=== PATIENT | female | born 1935 | race Caucasian/White ===

== ENCOUNTER → 2016-08-18 | Outpatient (CLI) | payer MEDICARE, BC ==
[2016-08-18 10:18] LABS: HEMATOCRIT 39.7 % (36.0-47.0); HEMOGLOBIN 12.4 g/dL (12.0-15.5); HGB HCT DIFFERENCE -2.5; MEAN CORPUSCULAR HEMOGLOBIN 31.5 pg (27.0-33.4); MEAN CORPUSCULAR HGB CONC 31.3 g/dL (32.0-36.0); MEAN CORPUSCULAR VOLUME 101 fl (80-97); RED BLOOD COUNT 3.94 10^6/uL (3.72-5.28); RED CELL DISTRIBUTION WIDTH 15.1 % (11.5-14.0); WHITE BLOOD COUNT 7.6 10^3/uL (4.0-10.5)
[2016-08-18 10:21] LABS: APPEARANCE,URINE CLEAR; BILIRUBIN,URINE NEGATIVE (NEGATIVE); GLUCOSE, URINE NEGATIVE (NEGATIVE); KETONES,URINE NEGATIVE (NEGATIVE); LEUKOCYTE ESTERASE,URINE SMALL (NEGATIVE); NITRITE,URINE NEGATIVE (NEGATIVE); PROTEIN,URINE NEGATIVE (NEGATIVE); URINE SPECIFIC GRAVITY 1.006; UROBILINOGEN,URINE NEGATIVE mg/dL (<2.0)
[2016-08-18 10:39] LABS: ANION GAP 14 (5-19); BLOOD UREA NITROGEN 25 mg/dL (7-20); CALCIUM 9.5 mg/dL (8.4-10.2); CARBON DIOXIDE 29 mmol/L (22-30); CHLORIDE 100 mmol/L (98-107); CREATININE RESULT 1.08 mg/dL (0.52-1.25); GLUCOSE 102 mg/dL (75-110); POTASSIUM 4.7 mmol/L (3.6-5.0); SODIUM 142.8 mmol/L (137-145)
== END ==
LOC: OD 09:09
PROVIDERS: ATTEND Internal Medicine Nephrology
DX: E11.22 Type 2 diabetes mellitus with diabetic chronic kidney disease (principal); I12.9 Hypertensive chronic kidney disease with stage 1 through stage 4 chronic kidney disease, or unspecified chronic kidney disease; N18.3 Chronic kidney disease, stage 3 (moderate); D64.9 Anemia, unspecified
CPT/HCPCS: 36415; 80048; 81001; 85027

== ENCOUNTER → 2017-04-03 | Outpatient (CLI) | payer MEDICARE, BC ==
[2017-04-03 10:04] LABS: HEMATOCRIT 36.6 % (36.0-47.0); HEMOGLOBIN 11.8 g/dL (12.0-15.5); HGB HCT DIFFERENCE -1.2; MEAN CORPUSCULAR HEMOGLOBIN 33.9 pg (27.0-33.4); MEAN CORPUSCULAR HGB CONC 32.1 g/dL (32.0-36.0); MEAN CORPUSCULAR VOLUME 106 fl (80-97); RED BLOOD COUNT 3.47 10^6/uL (3.72-5.28); RED CELL DISTRIBUTION WIDTH 15.1 % (11.5-14.0); WHITE BLOOD COUNT 6.4 10^3/uL (4.0-10.5)
[2017-04-03 10:09] LABS: APPEARANCE,URINE CLOUDY; BILIRUBIN,URINE NEGATIVE (NEGATIVE); GLUCOSE, URINE NEGATIVE (NEGATIVE); KETONES,URINE NEGATIVE (NEGATIVE); LEUKOCYTE ESTERASE,URINE LARGE (NEGATIVE); NITRITE,URINE NEGATIVE (NEGATIVE); PROTEIN,URINE NEGATIVE (NEGATIVE); URINE SPECIFIC GRAVITY 1.011; UROBILINOGEN,URINE NEGATIVE mg/dL (<2.0)
[2017-04-03 10:42] LABS: ANION GAP 13 (5-19); BLOOD UREA NITROGEN 45 mg/dL (7-20); CARBON DIOXIDE 27 mmol/L (22-30); CHLORIDE 103 mmol/L (98-107); CREATININE RESULT 1.26 mg/dL (0.52-1.25); GLUCOSE 100 mg/dL (75-110); SODIUM 142.9 mmol/L (137-145)
== END ==
LOC: OD 09:00
PROVIDERS: ATTEND Internal Medicine Nephrology
DX: D64.9 Anemia, unspecified (principal); I13.0 Hypertensive heart and chronic kidney disease with heart failure and stage 1 through stage 4 chronic kidney disease, or unspecified chronic kidney disease; E11.22 Type 2 diabetes mellitus with diabetic chronic kidney disease; N18.3 Chronic kidney disease, stage 3 (moderate); I50.9 Heart failure, unspecified
CPT/HCPCS: 36415; 80048; 81001; 85027

== ENCOUNTER 2017-06-17 19:39 | Inpatient (IN) | payer MEDICARE, BC ==
[2017-06-17] MEDS ORDERED: IPRATROPIUM/ALBUTEROL 0.5-2.5 MG/3 ML AMPUL NEB ONE (20:44)
[2017-06-17 21:29] LABS: ABSOLUTE BASOPHILS # (AUTO) 0.1 10^3/uL (0.0-0.2); ABSOLUTE EOSINOPHILS # (AUTO) 0.2 10^3/uL (0.0-0.6); ABSOLUTE LYMPHOCYTES (AUTO) 0.6 10^3/uL (0.5-4.7); ABSOLUTE MONOCYTES (AUTO) 0.6 10^3/uL (0.1-1.4); ABSOLUTE NEUT (AUTO) 7.3 10^3/uL (1.7-8.2); BASOPHILS % (AUTO) 1.2 % (0-2); EOSINOPHILS % (AUTO) 2.2 % (0-6); HEMATOCRIT 42.7 % (36.0-47.0); HEMOGLOBIN 14.1 g/dL (12.0-15.5); HGB HCT DIFFERENCE -0.4; LYMPHOCYTES % (AUTO) 6.4 % (13-45); MEAN CORPUSCULAR HEMOGLOBIN 34.3 pg (27.0-33.4); MEAN CORPUSCULAR HGB CONC 33.1 g/dL (32.0-36.0); MEAN CORPUSCULAR VOLUME 104 fl (80-97); MONOCYTES % (AUTO) 6.9 % (3-13); RED BLOOD COUNT 4.12 10^6/uL (3.72-5.28); RED CELL DISTRIBUTION WIDTH 15.6 % (11.5-14.0); SEGMENTED NEUTROPHILS % (AUTO) 83.3 % (42-78); WHITE BLOOD COUNT 8.8 10^3/uL (4.0-10.5)
--- NOTE | 2017-06-17 21:48 | RADIOLOGY REPORT (SQ) ---
EXAM DESCRIPTION: CHEST PA/LAT COMPLETED DATE/TIME: 06/17/2017 9:35 pm REASON FOR STUDY: sob COMPARISON: 11/14/2015 EXAM PARAMETERS: NUMBER OF VIEWS: two views TECHNIQUE: Digital Frontal and Lateral radiographic views of the chest acquired. RADIATION DOSE: NA LIMITATIONS: none FINDINGS: LUNGS AND PLEURA: No opacities, masses or pneumothorax. No pleural effusion. MEDIASTINUM AND HILAR STRUCTURES: No masses or contour abnormalities. HEART AND VASCULAR STRUCTURES: Cardiomegaly with mild central vascular prominence and indistinctness. BONES: No acute findings. HARDWARE: None in the chest. OTHER: No other significant finding. IMPRESSION: Cardiomegaly with mild central vascular prominence and indistinctness suggests early CHF exacerbation. TECHNICAL DOCUMENTATION: JOB ID: [id number] [employer]- All Rights Reserved
[2017-06-17 22:08] LABS: TROPONIN I 0.057 ng/mL
[2017-06-17] MEDS ORDERED: FUROSEMIDE INJ/PF 40 MG/4 ML SDV IV ONE (22:35)
--- NOTE | 2017-06-17 22:37 | ER Document Report ---
ED General - General Mode of Arrival: Ambulatory Information source: Patient TRAVEL OUTSIDE OF THE [place] IN LAST 30 DAYS: No - HPI Onset: Last week Exacerbated by: Supine <REINA JAMES - Last Filed: 06/17/17 23:14> <DREWMAGDIELANGELA - Last Filed: 06/18/17 07:36> - General Chief Complaint: Shortness Of Breath Stated Complaint: SHORTNESS OF BREATH Time Seen by Provider: 06/17/17 20:31 Notes: Patient is an 82 year old female with a history of renal and heart failure, asthma, and Afib presents to the emergency department accompanied by daughter in law complaining of shortness of breath onset a week ago. Daughter in Law states that after the patient took a shower this evening she was was very fatigued, had shortness of breath and her legs appeared swollen. Daughter in law states she checked the patients blood pressure and it appeared to be 110/85 and noticed that her heart was irregular. Patient states that her shortness of breath is exacerbated when she lays down. Patients associated symptoms include nausea, weight gain, and decreased urine output. Patient denies any chest pain. Patient currently takes Lasix, 40 mg once a day and Metolazone 2.5 mg every Monday, Monday, and Monday. Patient has previously had cardiac stents placed. (REINA JAMES) - Related Data Allergies/Adverse Reactions: pentazocine lactate [From Talwin] Allergy (Severe, Verified 11/10/15 08:07) Anaphylaxis codeine [Codeine] Allergy (Verified 11/10/15 08:07) Confusion meperidine HCl [From Demerol] Allergy (Verified 11/10/15 08:07) Disorientation morphine [Morphine] Allergy (Verified 11/10/15 08:07) Confusion Past Medical History - General Information source: Patient, Relative - Social History Smoking Status: Never Smoker Frequency of alcohol use: None Drug Abuse: None Family History: Reviewed & Not Pertinent Patient has suicidal ideation: No Patient has homicidal ideation: No - Past Medical History Cardiac Medical History: Reports: Hx Atrial Fibrillation, Hx Congestive Heart Failure - Immunizations Hx Pneumococcal Vaccination: 05/07/15 <REINA JAMES - Last Filed: 06/17/17 23:14> Review of Systems - Review of Systems Constitutional: See HPI, Other - Fatigue, Weight gain EENT: No symptoms reported Cardiovascular: No symptoms reported. denies: Chest pain Respiratory: See HPI, Short of breath Gastrointestinal: See HPI, Nausea Genitourinary: See HPI, Retention Female Genitourinary: No symptoms reported Musculoskeletal: See HPI, Leg swelling - bilaterally Skin: No symptoms reported Hematologic/Lymphatic: No symptoms reported Neurological/Psychological: No symptoms reported -: Yes All other systems reviewed and negative <JACOBREINA LOERA - Last Filed: 06/17/17 23:14> Physical Exam <JACOB,TAMLASHON - Last Filed: 06/17/17 23:14> <DREWMAGDIELANGELA - Last Filed: 06/18/17 07:36> - Vital signs Vitals: Temp Pulse Resp BP Pulse Ox 97.5 F 93 16 135/94 H 95 06/17/17 19:46 06/17/17 19:46 06/17/17 19:46 06/17/17 19:46 06/17/17 19:46 - Notes Notes: GENERAL: Alert, interacts well. No acute distress. HEAD: Normocephalic, atraumatic. EYES: Pupils equal, round, and reactive to light. Extraocular movements intact. ENT: Oral mucosa moist, tongue midline. NECK: Full range of motion. Supple. Trachea midline. LUNGS: Inspiratory rales in the upper lobe zone. Expiratory squeak. No wheezes or rhonchi. No respiratory distress. HEART: Irregular rate with ectopic beat. No murmurs, gallops, or rubs. ABDOMEN: Soft, non-tender. Non-distended. Bowel sounds present in all 4 quadrants. EXTREMITIES: Moves all 4 extremities spontaneously. 2+ pitting edema bilaterally , radial and dorsalis pedis pulses 2/4 bilaterally. No cyanosis. NEUROLOGICAL: Alert and oriented x3. Normal speech. [cranial nerves II through XII grossly intact]. Biceps and patellar DTRs 2+ bilaterally. PSYCH: Normal affect, normal mood. SKIN: Warm, dry, normal turgor. No rashes or lesions noted. (JACOB,TAMLASHON) Course - Laboratory Result Diagrams: 06/17/17 21:20 06/17/17 21:20 <JACOBSALASLASHON - Last Filed: 06/17/17 23:14> - Laboratory Result Diagrams: 06/18/17 06:40 06/18/17 06:40 <ANGELA KRUSE - Last Filed: 06/18/17 07:36> - Re-evaluation Re-evalutation: 06/18/17 00:57 CBC unremarkable, CMP shows acute on chronic renal failure with a BUN of 53 and creatinine 1.84, troponin is indeterminate 0.057, proBNP markedly elevated 28, 900, this further supports the congestive heart failure seen on chest x-ray and the rales heard on physical examination as well as the pitting edema. To treat this patient was given Lasix and a Wise catheter was placed. Patient does appear moderately short of breath but no need for supplemental oxygen at this time. I did discuss the case with Dr. Garcia the hospitalist on-call who agrees to admit the patient to his service in admission status on the telemetry care floor. 06/18/17 00:59 Wall Taper will continue to follow hypertension. (ANGELA RKUSE) - Vital Signs Vital signs: Temp Pulse Resp BP Pulse Ox 97.5 F 93 25 H 122/84 94 06/17/17 19:46 06/17/17 19:46 06/18/17 05:02 06/18/17 05:02 06/18/17 05:02 - Laboratory Laboratory results interpreted by me: 06/17/17 06/17/17 06/17/17 21:20 21:20 23:00 MCV 104 H MCH 34.3 H RDW 15.6 H Seg Neutrophils % 83.3 H Lymphocytes % 6.4 L BUN Creatinine Est GFR ( Amer) Est GFR (Non-Af Amer) Glucose Direct Bilirubin NT-Pro-B Natriuret Pep 66574 H Urine Protein 30 H Urine Blood SMALL H Ur Leukocyte Esterase MODERATE H 06/17/17 23:35 MCV MCH RDW Seg Neutrophils % Lymphocytes % BUN 53 H Creatinine 1.84 H Est GFR ( Amer) 32 L Est GFR (Non-Af Amer) 26 L Glucose 134 H Direct Bilirubin 0.7 H NT-Pro-B Natriuret Pep Urine Protein Urine Blood Ur Leukocyte Esterase - EKG Interpretation by Me Additional EKG results interpreted by me: 06/18/17 00:58 EKG shows sinus rhythm rate 94, left bundle branch block, 2 PVCs which are multifocal, negative sgarbossa criteria, no significant change from prior EKG on 11/09/2015 per my interpretation. (ANGELA KRUSE) Discharge <REINA JAMES - Last Filed: 06/17/17 23:14> - [facility]charge [facility] Unit Admitted: Telemetry <ANGELA KRUSE - Last Filed: 06/18/17 07:36> - Discharge Clinical Impression: Acute on chronic congestive heart failure Qualifiers: Congestive heart failure type: unspecified congestive heart failure type Qualified Code(s): I50.9 - Heart failure, unspecified Hypertension Qualifiers: Hypertension type: renovascular hypertension Qualified Code(s): I15.0 - Renovascular hypertension Acute on chronic renal failure Qualifiers: Acute renal failure type: unspecified Chronic kidney disease stage: stage 3 ( moderate) Qualified Code(s): N17.9 - Acute kidney failure, unspecified Condition: Fair Disposition: ADMITTED INPATIENT Scribe Attestation: 06/18/17 07:35 I personally performed the services described in the documentation, reviewed and edited the documentation which was dictated to the scribe in my presence, and it accurately records my words and actions. (ANGELA KRUSE) Scribe Documentation - Scribe Written by Melo:: Melo Schmitt, 06/17/2017 23:22 acting as scribe for :: Maite <REINA JAMES - Last Filed: 06/17/17 23:14>
[2017-06-17 23:29] LABS: APPEARANCE,URINE SLIGHTLY-CLOUDY; BILIRUBIN,URINE NEGATIVE (NEGATIVE); GLUCOSE, URINE NEGATIVE (NEGATIVE); KETONES,URINE NEGATIVE (NEGATIVE); LEUKOCYTE ESTERASE,URINE MODERATE (NEGATIVE); NITRITE,URINE NEGATIVE (NEGATIVE); PROTEIN,URINE 30 mg/dL (NEGATIVE); URINE SPECIFIC GRAVITY 1.009; UROBILINOGEN,URINE NEGATIVE mg/dL (<2.0)
[2017-06-18 00:01] LABS: ALANINE AMINOTRANSFERASE 28 U/L (9-52); ALKALINE PHOSPHATASE 92 U/L (38-126); ANION GAP 16 (5-19); ASPARTATE AMINO TRANSFERASE 28 U/L (14-36); BILIRUBIN,DIRECT 0.7 mg/dL (0.0-0.4); BILIRUBIN,TOTAL 0.9 mg/dL (0.2-1.3); BLOOD UREA NITROGEN 53 mg/dL (7-20); CARBON DIOXIDE 24 mmol/L (22-30); CHLORIDE 102 mmol/L (98-107); CREATININE RESULT 1.84 mg/dL (0.52-1.25); GLUCOSE 134 mg/dL (75-110); MAGNESIUM 1.8 mg/dL (1.6-2.3); POTASSIUM 4.2 mmol/L (3.6-5.0); SODIUM 141.9 mmol/L (137-145); TOTAL PROTEIN 7.8 g/dL (6.3-8.2)
[2017-06-18] MEDS ORDERED: DEXTROSE 40% GEL 15 GM TUBE PO PRN ×2 (00:56)
[2017-06-18] MEDS ORDERED: INSULIN LISPRO 100 UNIT/ML 3 ML VIAL SUBCUT PRN (00:56)
[2017-06-18] MEDS ORDERED: ENALAPRILAT DIHYDRATE INJ/PF 1.25 MG/1 ML SDV IV PRN (00:56)
[2017-06-18] MEDS ORDERED: MAGNESIUM HYDROXIDE SUSP 30 ML UDCUP PO PRN (00:56)
[2017-06-18] MEDS ORDERED: DEXTROSE 50%-WATER 25 GM/50 ML DISP.SYRIN IV PRN ×2 (00:56)
[2017-06-18] MEDS ORDERED: GLUCAGON,HUMAN RECOMB 1 MG INJ IM PRN (00:56)
[2017-06-18] MEDS ORDERED: NITROGLYCERIN 5 MG (0.2 MG/HR) PATCH.TD24 TD ONE (01:30)
[2017-06-18 01:56] LABS: CREATINE KINASE MB 2.27 ng/mL (<4.55)
[2017-06-18] MEDS ORDERED: POTASSIUM CHLORIDE 10 MEQ TABLET.SA PO ONE (02:00)
[2017-06-18 02:12] LABS: TROPONIN I 0.067 ng/mL
[2017-06-18] MEDS: HEPARIN SOD (PORCINE) 5,000 UNIT/ML 1 ML SYRINGE SUBCUT SCH ×3 (05:20→22:11)
--- NOTE | 2017-06-18 06:22 | PDOC H&P ---
History of Present Illness Admission Date/PCP: 06/18/17 01:14 BENJAMIN BERTRAND MD Patient complains of: Shortness of breath History of Present Illness: RANDELL STERLING is a 82 year old female with a past medical history of morbid obesity, congestive heart failure unknown ejection fraction, stage IV chronic kidney disease, diabetes, old left bundle branch block and hypothyroidism. Patient presents after 24 hours of orthopnea, shortness of breath and leg edema. In the emergency room she is found to have an elevated BNP of 28,000, creatinine at baseline 1.8, pulmonary vascular congestion and +1 edema. She receives IV Lasix and referred to the hospitalist for admission. Patient denies chest pain nausea vomiting or recent change of medications. She does complain of constipation. Past Medical History Cardiac Medical History: Reports: Atrial Fibrillation, Congestive Heart Failure Pulmonary Medical History: Reports: Sleep Apnea Endocrine Medical History: Reports: Diabetes Mellitus Type 2, Obesity Renal/ Medical History: Reports: Chronic Kidney Disease Social History Information Source: Patient Smoking Status: Never Smoker Frequency of Alcohol Use: None Hx Recreational Drug Use: No Hx Prescription Drug Abuse: No - Advance Directive Resuscitation Status: Full Code Family History Family History: None Parental Family History Reviewed: Yes Children Family History Reviewed: Yes Sibling(s) Family History Reviewed.: Yes Medication/Allergy Home Medications: Allopurinol [Zyloprim 100 mg Tablet] 100 mg PO DAILY 11/09/15 Carvedilol [Coreg] 1 tab PO Q12 11/09/15 Gabapentin 300 mg PO QHS 11/09/15 Isosorbide Mononitrate [Imdur 30 mg Tablet.er] 30 mg PO DAILY 11/09/15 Levothyroxine Sodium 125 mcg PO DAILY 11/09/15 Montelukast Sodium [Singulair] 10 mg PO DAILY 11/09/15 Ciprofloxacin HCl [Cipro 500 mg Tablet] 250 mg PO Q12 #6 tablet 11/17/15 Furosemide [Lasix 40 mg Tablet] 40 mg PO QAM #30 tablet 11/17/15 Glipizide [Glucotrol Xl 5 mg Tab.er] 5 mg PO QAM #30 tab.er.24 11/17/15 Allergies/Adverse Reactions: pentazocine lactate [From Talwin] Allergy (Severe, Verified 11/10/15 08:07) Anaphylaxis codeine [Codeine] Allergy (Verified 11/10/15 08:07) Confusion meperidine HCl [From Demerol] Allergy (Verified 11/10/15 08:07) Disorientation morphine [Morphine] Allergy (Verified 11/10/15 08:07) Confusion Review of Systems Constitutional: PRESENT: as per HPI, fatigue, weight gain Eyes: ABSENT: visual disturbances Ears: ABSENT: hearing changes Cardiovascular: PRESENT: dyspnea on exertion, edema, orthropnea, palpitations. ABSENT: chest pain Respiratory: PRESENT: as per HPI, dyspnea. ABSENT: cough, hemoptysis Gastrointestinal: PRESENT: bloating, constipation. ABSENT: abdominal pain, coffee ground emesis Genitourinary: ABSENT: dysuria, hematuria Musculoskeletal: ABSENT: joint swelling Integumentary: ABSENT: rash, wounds Neurological: ABSENT: abnormal gait, abnormal speech, confusion, dizziness, focal weakness, syncope Psychiatric: ABSENT: anxiety, depression, homidical ideation, suicidal ideation Endocrine: ABSENT: cold intolerance, heat intolerance, polydipsia, polyuria Hematologic/Lymphatic: ABSENT: easy bleeding, easy bruising Physical Exam Vital Signs: Temp Pulse Resp BP Pulse Ox 97.5 F 93 25 H 122/84 94 06/17/17 19:46 06/17/17 19:46 06/18/17 05:02 06/18/17 05:02 06/18/17 05:02 General appearance: PRESENT: cooperative, mild distress, morbidly obese Head exam: PRESENT: atraumatic, normocephalic Eye exam: PRESENT: conjunctiva pink, EOMI, PERRLA. ABSENT: scleral icterus Ear exam: PRESENT: normal external ear exam Mouth exam: PRESENT: dry mucosa Neck exam: PRESENT: JVD. ABSENT: carotid bruit, lymphadenopathy, thyromegaly Respiratory exam: PRESENT: crackles, symmetrical, tachypnea. ABSENT: rales, rhonchi, wheezes Cardiovascular exam: PRESENT: RRR. ABSENT: diastolic murmur, rubs, systolic murmur Pulses: PRESENT: normal dorsalis pedis pul, +1 pedal pulses bilateral Vascular exam: PRESENT: normal capillary refill GI/Abdominal exam: PRESENT: normal bowel sounds, soft. ABSENT: distended, guarding, mass, organolmegaly, rebound, tenderness Rectal exam: PRESENT: deferred Extremities exam: PRESENT: full ROM, +1 edema. ABSENT: calf tenderness, clubbing, pedal edema Neurological exam: PRESENT: alert, awake, oriented to person, oriented to place , oriented to time, oriented to situation, CN II-XII grossly intact. ABSENT: motor sensory deficit Psychiatric exam: PRESENT: appropriate affect, normal mood. ABSENT: homicidal ideation, suicidal ideation Skin exam: PRESENT: dry, intact, warm. ABSENT: cyanosis, rash Results Laboratory Results: 06/18/17 01:22 TSH 1.46 06/18/17 06/18/17 01:22 01:22 Creatine Kinase 85 CK-MB (CK-2) 2.27 Troponin I 0.067 Impressions: Chest X-Ray 06/17/17 20:43 IMPRESSION: Cardiomegaly with mild central vascular prominence and indistinctness suggests early CHF exacerbation. Assessment & Plan - Diagnosis (1) Acute on chronic congestive heart failure Qualifiers: Congestive heart failure type: unspecified congestive heart failure type Qualified Code(s): I50.9 - Heart failure, unspecified Is this a current diagnosis for this admission?: Yes Plan: Mild decompensated congestive heart failure secondary to volume overload possibly dietary indiscretion. Loop diuretic 1 transdermal nitro and reevaluate clinically and biochemically. Serial cardiac enzymes and chemistry (2) Acute on chronic renal failure Qualifiers: Acute renal failure type: unspecified Chronic kidney disease stage: stage 3 (moderate) Qualified Code(s): N17.9 - Acute kidney failure, unspecified; N18.3 - Chronic kidney disease, stage 3 (moderate); N18.3 - Chronic kidney disease, stage 3 (moderate) Is this a current diagnosis for this admission?: Yes Plan: Limit aggressive diuresis given stage IV chronic kidney disease consider BiPAP (3) Hypertension Qualifiers: Hypertension type: renovascular hypertension Qualified Code(s): I15.0 - Renovascular hypertension Is this a current diagnosis for this admission?: Yes Plan: Optimize nitrate and STACY inhibitor - Time Time Spent: 30 to 50 Minutes
[2017-06-18 06:49] LABS: ABSOLUTE BASOPHILS # (AUTO) 0.1 10^3/uL (0.0-0.2); ABSOLUTE EOSINOPHILS # (AUTO) 0.1 10^3/uL (0.0-0.6); ABSOLUTE LYMPHOCYTES (AUTO) 1.1 10^3/uL (0.5-4.7); ABSOLUTE MONOCYTES (AUTO) 0.7 10^3/uL (0.1-1.4); ABSOLUTE NEUT (AUTO) 6.1 10^3/uL (1.7-8.2); BASOPHILS % (AUTO) 1.4 % (0-2); EOSINOPHILS % (AUTO) 1.6 % (0-6); HEMATOCRIT 42.6 % (36.0-47.0); HGB HCT DIFFERENCE -0.6; LYMPHOCYTES % (AUTO) 13.7 % (13-45); MEAN CORPUSCULAR HEMOGLOBIN 33.7 pg (27.0-33.4); MEAN CORPUSCULAR HGB CONC 32.9 g/dL (32.0-36.0); MEAN CORPUSCULAR VOLUME 103 fl (80-97); MONOCYTES % (AUTO) 8.3 % (3-13); RED BLOOD COUNT 4.16 10^6/uL (3.72-5.28); RED CELL DISTRIBUTION WIDTH 15.5 % (11.5-14.0); WHITE BLOOD COUNT 8.1 10^3/uL (4.0-10.5)
[2017-06-18 07:28] LABS: ANION GAP 16 (5-19); BLOOD UREA NITROGEN 53 mg/dL (7-20); CALCIUM 9.9 mg/dL (8.4-10.2); CARBON DIOXIDE 22 mmol/L (22-30); CHLORIDE 105 mmol/L (98-107); CREATINE KINASE 73 U/L (30-135); CREATININE RESULT 1.82 mg/dL (0.52-1.25); GLUCOSE 110 mg/dL (75-110); POTASSIUM 4.7 mmol/L (3.6-5.0); SODIUM 143.1 mmol/L (137-145)
[2017-06-18 07:36] LABS: CREATINE KINASE MB 1.97 ng/mL (<4.55); TROPONIN I 0.073 ng/mL
[2017-06-18] MEDS ORDERED: ASPIRIN 325 MG TABLET PO ONE ×2 (07:36→09:00)
[2017-06-18] MEDS ORDERED: LEVOTHYROXINE SODIUM 0.1 MG TABLET PO SCH (08:00)
[2017-06-18] MEDS ORDERED: GLIPIZIDE XL 5 MG TAB.ER.24 PO SCH (08:00)
[2017-06-18] MEDS ORDERED: LEVOTHYROXINE SODIUM 0.025 MG TABLET PO SCH (08:00)
[2017-06-18] MEDS ORDERED: ONDANSETRON HCL INJ/PF 4 MG/2 ML SDV ONE (09:41)
[2017-06-18] MEDS: LEVOTHYROXINE SODIUM 0.1 MG TABLET PO SCH (09:52)
[2017-06-18] MEDS: POTASSIUM CHLORIDE 10 MEQ TABLET.SA PO SCH ×2 (09:52→22:11)
[2017-06-18] MEDS: DOCUSATE SODIUM 100 MG CAPSULE PO SCH (09:52)
[2017-06-18] MEDS: MONTELUKAST SODIUM 10 MG TABLET PO SCH (09:53)
[2017-06-18] MEDS: LEVOTHYROXINE SODIUM 0.025 MG TABLET PO SCH (09:53)
[2017-06-18] MEDS ORDERED: (PENDING PHARMACY ID) (Levothyroxine Sodium [Levothyroxine Sodium] 125 MCG) PO SCH (10:00)
[2017-06-18] MEDS ORDERED: NITROGLYCERIN 5 MG (0.2 MG/HR) PATCH.TD24 TD SCH (10:00)
[2017-06-18] MEDS ORDERED: ISOSORBIDE MONONITRATE 30 MG TAB.ER.24H PO SCH (10:00)
[2017-06-18] MEDS ORDERED: FUROSEMIDE INJ/PF 40 MG/4 ML SDV IV SCH ×2 (10:00)
[2017-06-18] MEDS ORDERED: ONDANSETRON HCL INJ/PF 4 MG/2 ML SDV IV SCH (10:30)
[2017-06-18] MEDS: CARVEDILOL 6.25 MG TABLET PO SCH ×2 (10:35→22:11)
[2017-06-18 13:10] LABS: CREATINE KINASE MB 2.2 ng/mL (<4.55); TROPONIN I 0.074 ng/mL
[2017-06-18] MEDS: LEVALBUTEROL HCL NEB 1.25 MG/3 ML AMPUL NEB PRN (14:22)
[2017-06-18] MEDS: ONDANSETRON HCL INJ/PF 4 MG/2 ML SDV IV PRN (14:38)
--- NOTE | 2017-06-18 15:23 | PDOC PROGRESS REPORT ---
Subjective Progress Note for:: 06/18/17 Subjective:: f/u acute on chronic heart failure per H&P - RANDELL STERLING is a 82 year old female with a past medical history of morbid obesity, congestive heart failure unknown ejection fraction, stage IV chronic kidney disease, diabetes, old left bundle branch block and hypothyroidism. Patient presents after 24 hours of orthopnea, shortness of breath and leg edema. In the emergency room she is found to have an elevated BNP of 28,000, creatinine at baseline 1.8, pulmonary vascular congestion and +1 edema. She receives IV Lasix and referred to the hospitalist for admission. Patient denies chest pain nausea vomiting or recent change of medications. She does complain of constipation. she reports to me increase swelling of her legs, weight gain but not sure how much all in spite of increasing her dose of diuretics; she notes a drop off in the volume of her urine too but denies dysuric symptoms. she is followed by dr rodriguez as well and reports a similar presentation in the last year requiring a prolonged hospitalization and dr rodriguez's "magic" to get her better. she denies chest pain, arm pain, jaw pain, palpitations, reports nausea but no v /d, and no anorexia, rash, confusion, N/T. no echo report on review of the EMR ROS: all systems reviewed, see above, remaining systems negative. Physical Exam Vital Signs: Temp Pulse Resp BP Pulse Ox 97.3 F 77 16 116/83 97 06/18/17 12:00 06/18/17 14:22 06/18/17 14:22 06/18/17 12:00 06/18/17 14:22 Intake & Output 06/17/17 06/18/17 06/19/17 06:59 06:59 06:59 Output Total 900 Balance -900 Weight 89.2 kg General appearance: PRESENT: obese, well-developed Head exam: PRESENT: atraumatic Eye exam: PRESENT: EOMI. ABSENT: conjunctival injection, scleral icterus Mouth exam: PRESENT: dry mucosa, neck supple Neck exam: PRESENT: full ROM. ABSENT: JVD, lymphadenopathy Respiratory exam: PRESENT: crackles - bases, unlabored. ABSENT: accessory muscle use, wheezes Cardiovascular exam: PRESENT: irregular rhythm - sinus with frequent extrasystolic beats, systolic murmur - 3/6 low rumbling murmur at left 2nd space. ABSENT: tachycardia Pulses: PRESENT: normal radial pulses GI/Abdominal exam: PRESENT: normal bowel sounds, soft. ABSENT: guarding, tenderness Extremities exam: PRESENT: pedal edema - but only trace Musculoskeletal exam: PRESENT: ambulatory, full ROM Neurological exam: PRESENT: alert, awake, oriented to person, oriented to place , oriented to time, oriented to situation Psychiatric exam: PRESENT: appropriate affect, normal mood Skin exam: PRESENT: dry, warm Results Laboratory Results: 06/18/17 06:40 06/18/17 06:40 06/18/17 06/18/17 06/18/17 01:22 06:40 06:40 WBC 8.1 RBC 4.16 Hgb 14.0 Hct 42.6 MCV 103 H MCH 33.7 H MCHC 32.9 RDW 15.5 H Plt Count 187 Seg Neutrophils % 75.0 Lymphocytes % 13.7 Monocytes % 8.3 Eosinophils % 1.6 Basophils % 1.4 Absolute Neutrophils 6.1 Absolute Lymphocytes 1.1 Absolute Monocytes 0.7 Absolute Eosinophils 0.1 Absolute Basophils 0.1 Sodium 143.1 Potassium 4.7 Chloride 105 Carbon Dioxide 22 Anion Gap 16 BUN 53 H Creatinine 1.82 H Est GFR ( Amer) 32 L Est GFR (Non-Af Amer) 27 L Glucose 110 Calcium 9.9 TSH 1.46 06/18/17 06/18/17 06/18/17 01:22 01:22 06:40 Creatine Kinase 85 73 CK-MB (CK-2) 2.27 Troponin I 0.067 06/18/17 06/18/17 06/18/17 06:40 11:59 11:59 Creatine Kinase 73 CK-MB (CK-2) 1.97 2.20 Troponin I 0.073 0.074 Impressions: Chest X-Ray 06/17/17 20:43 IMPRESSION: Cardiomegaly with mild central vascular prominence and indistinctness suggests early CHF exacerbation. Status: Image reviewed by me - massive cardiomegaly with cephalization of pulm vascular in my opinion Assessment & Plan - Diagnosis (1) Acute on chronic congestive heart failure Qualifiers: Congestive heart failure type: unspecified congestive heart failure type Qualified Code(s): I50.9 - Heart failure, unspecified Is this a current diagnosis for this admission?: Yes Plan: This appears to be best explanation for her symptoms at this time based on clinical findings, imaging, labs and history but it is a bit concerning that she is unable to increase her urine output in response to diuretics this time. will ck echo so we can document EF and valvular disease and continue attempts at diuresis with IV lasix and careful monitoring of her volume status and renal function. will enlist dr rodriguez's help when he is available, hopefully Monday. she is refusing nitrates including imdur, states her interior block wirer took her off those meds, not sure why. (2) Acute on chronic renal failure Qualifiers: Acute renal failure type: unspecified Chronic kidney disease stage: stage 3 (moderate) Qualified Code(s): N17.9 - Acute kidney failure, unspecified; N18.3 - Chronic kidney disease, stage 3 (moderate); N18.3 - Chronic kidney disease, stage 3 (moderate) Is this a current diagnosis for this admission?: Yes Plan: as above with increased risk of decompensation due to use of diuretics if renal function worsens or evidence for oliguria, will need imaging to r/o obstruction. (3) Cardiac murmur Is this a current diagnosis for this admission?: Yes Plan: unclear etiology and significance; hopefully the echo can help answer some of these questions (4) SHABBIR (obstructive sleep apnea) Is this a current diagnosis for this admission?: Yes Plan: continue home CPAP (5) Diabetes Qualifiers: Diabetes mellitus type: type 2 Diabetes mellitus complication status: with kidney complications Diabetes mellitus complication detail: with chronic kidney disease Diabetes mellitus chcf insulin use: without buttermaker helper use Chronic kidney disease stage: stage 3 (moderate) Qualified Code(s): E11.22 - Type 2 diabetes mellitus with diabetic chronic kidney disease; N18.3 - Chronic kidney disease, stage 3 (moderate); N18.3 - Chronic kidney disease, stage 3 (moderate) Is this a current diagnosis for this admission?: Yes Plan: see above (6) Candidal dermatitis Is this a current diagnosis for this admission?: Yes Plan: treat topically (7) Hypertension Qualifiers: Hypertension type: renovascular hypertension Qualified Code(s): I15.0 - Renovascular hypertension Is this a current diagnosis for this admission?: Yes Plan: currently well controlled (8) Elevated troponin Is this a current diagnosis for this admission?: Yes Plan: chronic LBBB and CKD make this difficult to interpret; she is chest pain and ischemic symptom free however so will continue to monitor at this point. for now continue ASA and beta ilan. - Time Time Spent with patient: 35 or more minutes Medications reviewed and adjusted accordingly: Yes
[2017-06-18] MEDS: GABAPENTIN 300 MG CAPSULE PO SCH (22:11)
[2017-06-19 04:35] LABS: ABSOLUTE BASOPHILS # (AUTO) 0.1 10^3/uL (0.0-0.2); ABSOLUTE EOSINOPHILS # (AUTO) 0.3 10^3/uL (0.0-0.6); ABSOLUTE LYMPHOCYTES (AUTO) 0.9 10^3/uL (0.5-4.7); ABSOLUTE MONOCYTES (AUTO) 0.5 10^3/uL (0.1-1.4); ABSOLUTE NEUT (AUTO) 5.5 10^3/uL (1.7-8.2); BASOPHILS % (AUTO) 1.4 % (0-2); EOSINOPHILS % (AUTO) 3.6 % (0-6); HEMATOCRIT 46.5 % (36.0-47.0); HEMOGLOBIN 15.4 g/dL (12.0-15.5); HGB HCT DIFFERENCE -0.3; LYMPHOCYTES % (AUTO) 12.3 % (13-45); MEAN CORPUSCULAR VOLUME 103 fl (80-97); MONOCYTES % (AUTO) 7.3 % (3-13); RED BLOOD COUNT 4.53 10^6/uL (3.72-5.28); RED CELL DISTRIBUTION WIDTH 15.4 % (11.5-14.0); SEGMENTED NEUTROPHILS % (AUTO) 75.4 % (42-78); WHITE BLOOD COUNT 7.3 10^3/uL (4.0-10.5)
[2017-06-19 04:58] LABS: ANION GAP 17 (5-19); BLOOD UREA NITROGEN 61 mg/dL (7-20); CALCIUM 9.7 mg/dL (8.4-10.2); CARBON DIOXIDE 18 mmol/L (22-30); CHLORIDE 106 mmol/L (98-107); CREATININE RESULT 2.22 mg/dL (0.52-1.25); GLUCOSE 118 mg/dL (75-110); SODIUM 141.2 mmol/L (137-145)
[2017-06-19 05:04] LABS: POTASSIUM 6.3 mmol/L (3.6-5.0)
[2017-06-19] MEDS ORDERED: SODIUM POLYSTYRENE SULFONATE 15 GM/60 ML PO ONE ×2 (05:41→05:45)
[2017-06-19] MEDS ORDERED: CALCIUM GLUCONATE 1,000 MG in DEXTROSE 5%-WATER 50 ML IV ONE ×2 (05:41→05:45)
[2017-06-19] MEDS ORDERED: CALCIUM GLUCONATE 1000 MG/10 ML INJ IV PRN (05:41)
[2017-06-19] MEDS ORDERED: IPRATROPIUM/ALBUTEROL 0.5-2.5 MG/3 ML AMPUL NEB ONE (05:45)
[2017-06-19] MEDS: LEVALBUTEROL HCL NEB 1.25 MG/3 ML AMPUL NEB PRN (05:50)
[2017-06-19] MEDS ORDERED: NORMAL SALINE 1000 ML 250 ML IV ONE (05:51)
--- NOTE | 2017-06-19 06:10 | EKG REPORT ---
SEVERITY:- ABNORMAL ECG - SINUS RHYTHM LEFT BUNDLE BRANCH BLOCK : Confirmed by: Lucrecia Bazan MD 19-Jun-2017 06:09:48
--- NOTE | 2017-06-19 06:10 | EKG REPORT ---
SEVERITY:- ABNORMAL ECG - SINUS RHYTHM LEFT BUNDLE BRANCH BLOCK : Confirmed by: Lucrecia Bazan MD 19-Jun-2017 06:09:56
[2017-06-19] MEDS: HEPARIN SOD (PORCINE) 5,000 UNIT/ML 1 ML SYRINGE SUBCUT SCH ×3 (06:17→21:49)
[2017-06-19] MEDS ORDERED: ATORVASTATIN CALCIUM 80 MG TABLET PO ONE (08:00)
[2017-06-19] MEDS ORDERED: CLOPIDOGREL BISULFATE 75 MG TABLET PO ONE (08:00)
[2017-06-19] MEDS: NITROGLYCERIN 5 MG (0.2 MG/HR) PATCH.TD24 TD SCH (08:25)
[2017-06-19] MEDS: CARVEDILOL 6.25 MG TABLET PO SCH ×2 (10:28→21:50)
[2017-06-19] MEDS: ASPIRIN 325 MG TABLET PO SCH (10:28)
[2017-06-19] MEDS: MONTELUKAST SODIUM 10 MG TABLET PO SCH (10:29)
[2017-06-19] MEDS: LEVOTHYROXINE SODIUM 0.1 MG TABLET PO SCH (10:29)
[2017-06-19] MEDS: LEVOTHYROXINE SODIUM 0.025 MG TABLET PO SCH (10:29)
--- NOTE | 2017-06-19 10:31 | PDOC PROGRESS REPORT ---
Subjective Progress Note for:: 06/19/17 Subjective:: f/u acute on chronic heart failure, Acute on chronic kidney disease, abnl troponin per H&P - RANDELL STERLING is a 82 year old female with a past medical history of morbid obesity, congestive heart failure unknown ejection fraction, stage IV chronic kidney disease, diabetes, old left bundle branch block and hypothyroidism. Patient presents after 24 hours of orthopnea, shortness of breath and leg edema. In the emergency room she is found to have an elevated BNP of 28,000, creatinine at baseline 1.8, pulmonary vascular congestion and +1 edema. She receives IV Lasix and referred to the hospitalist for admission. Patient denies chest pain nausea vomiting or recent change of medications. She does complain of constipation. She has chronic left bundle branch block on EKG. she reported to me increase swelling of her legs, weight gain but not sure how much all in spite of increasing her dose of diuretics as well as a drop off in the volume of her urine in spite of diuretics but denies dysuric symptoms. she is followed by dr rodriguez and reports a similar presentation in the last year requiring a prolonged hospitalization. never required renal replacement therapy. overnight her troponins have continued to trend up approaching ischemic range though she remains chest pain free and her dyspnea has markedly improved. unfortunately her renal function has declined with diuretics. she denies nausea today, no vomiting, arm/jaw pain, syncope/presyncope, palpitations, VALENZUELA, N /T. ROS: all systems reviewed, see above, remaining systems negative. Physical Exam Vital Signs: Temp Pulse Resp BP Pulse Ox 97.4 F 75 20 129/80 H 100 06/19/17 07:41 06/19/17 07:41 06/19/17 07:41 06/19/17 07:41 06/19/17 07:41 Intake & Output 06/18/17 06/19/17 06/20/17 06:59 06:59 06:59 Intake Total 749 Output Total 1115 Balance -366 Weight 100.7 kg General appearance: PRESENT: obese, well-developed Head exam: PRESENT: atraumatic Eye exam: PRESENT: EOMI. ABSENT: conjunctival injection, scleral icterus Mouth exam: PRESENT: A little less dry mucosa this morning, neck supple Neck exam: PRESENT: full ROM. ABSENT: JVD, lymphadenopathy Respiratory exam: PRESENT: crackles - bases, unlabored. ABSENT: accessory muscle use, wheezes Cardiovascular exam: PRESENT: irregular rhythm - sinus with frequent extrasystolic beats, systolic murmur - 3/6 low rumbling murmur at left 2nd space -unchanged ABSENT: tachycardia Pulses: PRESENT: normal radial pulses GI/Abdominal exam: PRESENT: normal bowel sounds, soft. ABSENT: guarding, tenderness Extremities exam: No pedal edema Musculoskeletal exam: PRESENT: ambulatory, full ROM Neurological exam: PRESENT: alert, awake, oriented to person, oriented to place , oriented to time, oriented to situation Psychiatric exam: PRESENT: appropriate affect, normal mood Skin exam: PRESENT: dry, warm Results Laboratory Results: 06/19/17 04:19 06/19/17 04:19 06/19/17 06/19/17 04:19 04:19 WBC 7.3 RBC 4.53 Hgb 15.4 Hct 46.5 MCV 103 H MCH 34.0 H MCHC 33.0 RDW 15.4 H Plt Count 167 Seg Neutrophils % 75.4 Lymphocytes % 12.3 L Monocytes % 7.3 Eosinophils % 3.6 Basophils % 1.4 Absolute Neutrophils 5.5 Absolute Lymphocytes 0.9 Absolute Monocytes 0.5 Absolute Eosinophils 0.3 Absolute Basophils 0.1 Sodium 141.2 Potassium 6.3 H* D Chloride 106 Carbon Dioxide 18 L Anion Gap 17 BUN 61 H Creatinine 2.22 H Est GFR ( Amer) 26 L Est GFR (Non-Af Amer) 21 L Glucose 118 H Calcium 9.7 06/18/17 06/18/17 06/18/17 01:22 01:22 06:40 Creatine Kinase 85 73 CK-MB (CK-2) 2.27 Troponin I 0.067 06/18/17 06/18/17 06/18/17 06:40 11:59 11:59 Creatine Kinase 73 CK-MB (CK-2) 1.97 2.20 Troponin I 0.073 0.074 06/19/17 04:19 Creatine Kinase CK-MB (CK-2) Troponin I 0.279 EKG Comments: Repeat EKG this morning just shows chronic left bundle branch block but no ST segment elevation or depression. Impressions: Chest X-Ray 06/17/17 20:43 IMPRESSION: Cardiomegaly with mild central vascular prominence and indistinctness suggests early CHF exacerbation. Assessment & Plan - Diagnosis (1) Elevated troponin Is this a current diagnosis for this admission?: Yes Plan: chronic LBBB and CKD make this difficult to interpret; she remains chest pain free though the presentation of heart failure could be a cardiac equivalent. The rising troponins adversely affected by decline in renal function as well, further complicating interpretation. Cardiology has been consulted, awaiting their recommendations. Echocardiogram ordered this morning, follow-up on results. Hematuria noted on urinalysis at presentation. In light of all these things and her overall general condition, will continue ASA and beta ilan and add topical nitrates, high intensity statin and Plavix without a loading dose. Hold on full dose anticoagulation until cardiology evaluation or her condition declares itself more clearly. Discussed with patient in detail, she is in agreement with this treatment plan and course of action. (2) Acute on chronic congestive heart failure Qualifiers: Congestive heart failure type: unspecified congestive heart failure type Qualified Code(s): I50.9 - Heart failure, unspecified Is this a current diagnosis for this admission?: Yes Plan: Hold diuretics due to declining renal function, she is a negative approximately 1 L fluid balance as of this morning. Await cardiology input. Continue beta- ilan. Adding topical nitrates. Follow up on echo. STACY inhibitor contraindicated in the setting of declining renal function. (3) Acute on chronic renal failure Qualifiers: Acute renal failure type: unspecified Chronic kidney disease stage: stage 3 (moderate) Qualified Code(s): N17.9 - Acute kidney failure, unspecified; N18.3 - Chronic kidney disease, stage 3 (moderate); N18.3 - Chronic kidney disease, stage 3 (moderate) Is this a current diagnosis for this admission?: Yes Plan: Hold diuretics, agree with gentle IV bolus ordered by covering physician overnight. Hold nephrotoxic medications. Awaiting dr rodriguez's consult today. (4) Cardiac murmur Is this a current diagnosis for this admission?: Yes Plan: unclear etiology and significance; hopefully the echo can better characterize. Significant valvular disease may be contributing to her symptoms. (5) SHABBIR (obstructive sleep apnea) Is this a current diagnosis for this admission?: Yes Plan: continue home CPAP (6) Diabetes Qualifiers: Diabetes mellitus type: type 2 Diabetes mellitus complication status: with kidney complications Diabetes mellitus complication detail: with chronic kidney disease Diabetes mellitus chcf insulin use: without chcf use Chronic kidney disease stage: stage 3 (moderate) Qualified Code(s): E11.22 - Type 2 diabetes mellitus with diabetic chronic kidney disease; N18.3 - Chronic kidney disease, stage 3 (moderate); N18.3 - Chronic kidney disease, stage 3 (moderate) Is this a current diagnosis for this admission?: Yes (7) Candidal dermatitis Is this a current diagnosis for this admission?: Yes (8) Hypertension Qualifiers: Hypertension type: renovascular hypertension Qualified Code(s): I15.0 - Renovascular hypertension Is this a current diagnosis for this admission?: Yes (9) Hyperkalemia Is this a current diagnosis for this admission?: Yes Plan: Likely related to declining renal function. Treated with usual regimen by covering physician overnight. Repeat basic metabolic panel and discontinue oral supplement. (10) Metabolic acidosis Is this a current diagnosis for this admission?: Yes Plan: Likely related to declining renal function. Treatment as outlined above. Continue to monitor. - Time Time Spent with patient: 35 or more minutes Medications reviewed and adjusted accordingly: Yes - Plan Summary Plan Summary: Overall condition is taken a turn for the worse with declining renal function and questionable acute coronary syndrome. Treatment plan as outlined above.
[2017-06-19] MEDS: DOCUSATE SODIUM 100 MG CAPSULE PO SCH (10:32)
[2017-06-19 11:12] LABS: ANION GAP 13 (5-19); BLOOD UREA NITROGEN 65 mg/dL (7-20); CARBON DIOXIDE 23 mmol/L (22-30); CHLORIDE 104 mmol/L (98-107); CREATININE RESULT 2.27 mg/dL (0.52-1.25); GLUCOSE 134 mg/dL (75-110)
[2017-06-19 11:37] LABS: POTASSIUM 5.2 mmol/L (3.6-5.0)
[2017-06-19] MEDS ORDERED: MAGNESIUM HYDROXIDE SUSP 30 ML UDCUP PO PRN (14:00)
--- NOTE | 2017-06-19 16:56 | PDOC CONSULTATION ---
Consultation Consult Date: 06/19/17 Consult reason:: renal failure History of Present Illness Admission Date/PCP: 06/18/17 01:14 BENJAMIN BERTRAND MD History of Present Illness: RANDELL STERLING is a 82 year old female with a past medical history of CKD 4, morbid obesity, congestive heart failure unknown ejection fraction, diabetes, old left bundle branch block and hypothyroidism. She says that progressively she has been getting more short of breath with exertion. Over the holidays the patient presented after 24 hours of orthopnea, shortness of breath and abnormal leg edema. The emergency room ordered a BNP,which was 28,000, creatinine at baseline 1.8, pulmonary vascular congestion and +1 edema. She received IV Lasix once in the ER and then received it a couple times as inpatient. The next day her potassium elevated to 6.2 and her creatinine elevated 2.2. Troponins were also elevated. She was given kayexlate and her potassium went to 5.2. Currently all diuretics are stopped and she is not receiving any IV fluids. She says that she has not urinated much today, but feels like she has to. An echo of her heart was done today also, results are pending. She denies chest pain or chest discomfort despite having elevated troponins. Past Medical History Cardiac Medical History: Reports: Atrial Fibrillation Pulmonary Medical History: Reports: Sleep Apnea Endocrine Medical History: Reports: Diabetes Mellitus Type 2, Obesity Social History Smoking Status: Former Smoker Cigarettes Packs Per Day: 0 Cigars Per Day: 0 Pipes Per Day: 0 Number of Years Smokin Frequency of Alcohol Use: None Hx Recreational Drug Use: No Hx Prescription Drug Abuse: No - Advance Directive Resuscitation Status: Full Code Family History Parental Family History Reviewed: No Children Family History Reviewed: No Sibling(s) Family History Reviewed.: No Medication/Allergy Home Medications: Allopurinol [Zyloprim 100 mg Tablet] 200 mg PO DAILY 06/18/17 Betamethasone Valerate [Valisone 0.1 % Lotion] 1 applic TP DAILY 06/18/17 Bromfenac Sodium [Bromsite] 1 drop OU DAILY 06/18/17 Difluprednate [Durezol] 1 drop OU Q8 06/18/17 Furosemide [Lasix 40 mg Tablet] 40 mg PO QAM 06/18/17 Gabapentin [Neurontin 300 mg Capsule] 300 mg PO QHS 06/18/17 Glipizide [Glipizide ER] 2.5 mg PO DAILY 06/18/17 Levalbuterol HCl [Xopenex Neb 1.25 mg/3 ml Ampul] 1.25 mg NEB RTQ6HP PRN Levalbuterol Tartrate [Xopenex Hfa] 1 puff IH Q6HP PRN 06/18/17 Levothyroxine Sodium [Synthroid] 125 mcg PO DAILY 06/18/17 Magnesium Oxide [Mag-Ox 400 mg Tablet] 400 mg PO DAILY 06/18/17 Metolazone [Zaroxolyn 2.5 Mg Tablet] 2.5 mg PO MOWEFR@08 PRN 06/18/17 Metoprolol Succinate [Toprol Xl 25 mg Tab.sr] 25 mg PO DAILY 06/18/17 Montelukast Sodium [Singulair 10 mg Tablet] 10 mg PO QHS 06/18/17 Potassium Chloride [Klor-Con 10 Meq Tablet.sa] 10 meq PO DAILY 06/18/17 Allergies/Adverse Reactions: pentazocine lactate [From Talwin] Allergy (Severe, Verified 06/18/17 10:20) Anaphylaxis codeine [Codeine] Allergy (Verified 06/18/17 10:20) Confusion meperidine HCl [From Demerol] Allergy (Verified 06/18/17 10:20) Disorientation morphine [Morphine] Allergy (Verified 06/18/17 10:20) Confusion Sulfa (Sulfonamide Antibiotics) Allergy (Verified 06/18/17 10:22) Flushing Review of Systems Constitutional: PRESENT: weight gain. ABSENT: chills, fever(s), headache(s) Eyes: ABSENT: visual disturbances Ears: ABSENT: hearing changes Nose, Mouth, and Throat: ABSENT: headache(s), vertigo Cardiovascular: PRESENT: dyspnea on exertion, edema, orthropnea. ABSENT: chest pain, palpitations Respiratory: PRESENT: dyspnea. ABSENT: cough, sputum Gastrointestinal: ABSENT: constipation, diarrhea, nausea, vomiting Genitourinary: PRESENT: difficulty urinating, hematuria. ABSENT: dysuria Musculoskeletal: PRESENT: muscle weakness. ABSENT: deformity, joint swelling Neurological: ABSENT: abnormal speech, confusion, dizziness, focal weakness, syncope Psychiatric: ABSENT: anxiety, depression Endocrine: ABSENT: polydipsia, polyuria Physical Exam Vital Signs: Temp Pulse Resp BP Pulse Ox 97.1 F 71 20 137/80 H 100 06/19/17 15:57 06/19/17 15:57 06/19/17 15:57 06/19/17 15:57 06/19/17 15:57 Intake & Output 06/18/17 06/19/17 06/20/17 06:59 06:59 06:59 Intake Total 749 Output Total 1115 Balance -366 Weight 100.7 kg General appearance: PRESENT: no acute distress, obese, well-developed, well- nourished Head exam: PRESENT: atraumatic, normocephalic Eye exam: PRESENT: PERRLA. ABSENT: scleral icterus Mouth exam: PRESENT: moist, tongue midline Neck exam: PRESENT: full ROM. ABSENT: JVD, tracheal deviation Respiratory exam: PRESENT: crackles - -bases of the lungs. ABSENT: accessory muscle use, chest wall tenderness, clear to auscultation ignacio, rhonchi, wheezes Cardiovascular exam: PRESENT: RRR, +S1, +S2 GI/Abdominal exam: PRESENT: normal bowel sounds, soft. ABSENT: ascites, tenderness Extremities exam: PRESENT: pedal edema - -trace+. ABSENT: joint swelling, tenderness Musculoskeletal exam: PRESENT: normal inspection. ABSENT: tenderness Neurological exam: PRESENT: alert, awake, oriented to person, oriented to place , oriented to time, oriented to situation Psychiatric exam: PRESENT: appropriate affect, normal mood. ABSENT: anxious, depressed Skin exam: PRESENT: dry, intact, warm. ABSENT: cyanosis Results Laboratory Results: 06/19/17 04:19 06/19/17 10:30 06/19/17 06/19/17 06/19/17 04:19 04:19 10:30 WBC 7.3 RBC 4.53 Hgb 15.4 Hct 46.5 MCV 103 H MCH 34.0 H MCHC 33.0 RDW 15.4 H Plt Count 167 Seg Neutrophils % 75.4 Lymphocytes % 12.3 L Monocytes % 7.3 Eosinophils % 3.6 Basophils % 1.4 Absolute Neutrophils 5.5 Absolute Lymphocytes 0.9 Absolute Monocytes 0.5 Absolute Eosinophils 0.3 Absolute Basophils 0.1 Sodium 141.2 140.0 Potassium 6.3 H* D 5.2 H D Chloride 106 104 Carbon Dioxide 18 L 23 Anion Gap 17 13 BUN 61 H 65 H Creatinine 2.22 H 2.27 H Est GFR ( Amer) 26 L 25 L Est GFR (Non-Af Amer) 21 L 21 L Glucose 118 H 134 H Calcium 9.7 10.0 06/18/17 06/18/17 06/18/17 01:22 01:22 06:40 Creatine Kinase 85 73 CK-MB (CK-2) 2.27 Troponin I 0.067 06/18/17 06/18/17 06/18/17 06:40 11:59 11:59 Creatine Kinase 73 CK-MB (CK-2) 1.97 2.20 Troponin I 0.073 0.074 06/19/17 06/19/17 04:19 10:30 Creatine Kinase CK-MB (CK-2) Troponin I 0.279 0.183 Impressions: Chest X-Ray 06/17/17 20:43 IMPRESSION: Cardiomegaly with mild central vascular prominence and indistinctness suggests early CHF exacerbation. Assessment & Plan - Diagnosis (1) Anemia in chronic kidney disease Plan: will get ultrasound of the kidneys to rule out post-obstructive QUIQUE. Would hold diuretics and let her orally rehydrate to prevent from fluid overload from using IV NS. Most QUIQUE is due to diuretics. Could also be from having her blood pressure to controlled at home. She says that it was in the 90s and low 100s, which made her dizzy and not feel well. (2) Acute on chronic congestive heart failure Qualifiers: Congestive heart failure type: unspecified congestive heart failure type Qualified Code(s): I50.9 - Heart failure, unspecified Is this a current diagnosis for this admission?: Yes Plan: currently needing more diuresis, will have to hold off until kidney function regains. Awaiting cardiology's input and echo report. (3) Hyperkalemia Is this a current diagnosis for this admission?: Yes Plan: currently better controlled, will monitor with tomorrows labs and adjust medications accordingly as needed (4) Elevated troponin Is this a current diagnosis for this admission?: Yes Plan: awaiting cardiologies input. Patient currently not complaining ischemic heart disease symptoms. (5) Diabetes Qualifiers: Diabetes mellitus type: type 2 Diabetes mellitus complication status: with kidney complications Diabetes mellitus complication detail: with chronic kidney disease Diabetes mellitus intermediate manager insulin use: without halfway use Chronic kidney disease stage: stage 3 (moderate) Qualified Code(s): E11.22 - Type 2 diabetes mellitus with diabetic chronic kidney disease; N18.3 - Chronic kidney disease, stage 3 (moderate); N18.3 - Chronic kidney disease, stage 3 (moderate) Is this a current diagnosis for this admission?: Yes Plan: controlled (6) Hypertension Qualifiers: Hypertension type: renovascular hypertension Qualified Code(s): I15.0 - Renovascular hypertension Is this a current diagnosis for this admission?: Yes Plan: stable (7) Metabolic acidosis Is this a current diagnosis for this admission?: Yes Plan: currently stable
--- NOTE | 2017-06-19 17:57 | XCELERA REPORT ---
[address] [address] Transthoracic Echocardiogram Report Name: RANDELL STERLING Age: 82 yrs Gender: Female : 1935 Patient Status: Inpatient Patient Location: [address] [place] [address] Study Date: 06/19/2017 10:23 AM Height: 61 in Weight: 196 lb BSA: 1.9 m2 Procedure: A two-dimensional transthoracic echocardiogram with color flow and Doppler was performed. Study Quality: Fair. Reason For Study: WORSENING CHF History: WORSENING CHF. Ordering Physician: TERESA EDWARD Performed By: Karolyn Aragon Interpretation Summary There is normal left ventricular wall thickness. The left ventricle is moderately to severly dilated. Left ventricular systolic function is severely reduced. There is severe global hypokinesis of the left ventricle. There is no thrombus. There is no ventricular septal defect visualized. The right ventricle is mild to moderately dilated. The right ventricular systolic function is mildly reduced. The right atrium is mild to moderately dilated. The left atrium is moderately dilated. The interatrial septum is intact with no evidence for an atrial septal defect. There is no evidence of mitral valve prolapse. There is no mitral valve stenosis. There is a moderate to severe amount of mitral regurgitation There is no aortic valve stenosis There is no LVOT obstruction. There is Aortic Sclerosis without stenosis. There is a mild amount of aortic regurgitation There is a severe amount of tricuspid regurgitation There is servere pulmonary hypertension by echo RVSP is 75 mm of Hg , with RA mean of 15. There is no pericardial effusion. MMode/2D Measurements & Calculations RVDd: 3.7 cm LVIDd: 6.6 cm FS: 8.7 % EPSS: 2.0 cm IVSd: 1.1 cm LVIDs: 6.1 cm EDV(Teich): 227.3 ml LVPWd: 1.1 cm ESV(Teich): 184.7 ml EF(Teich): 18.7 % Ao root diam: 2.6 cm Ao root area: 5.5 cm2 Doppler Measurements & Calculations MV E max radha: MV dec slope: Ao V2 max: AI max radha: 80.4 cm/sec 411.4 cm/sec2 136.5 cm/sec 412.3 cm/sec MV A max radha: MV dec time: Ao max PG: AI max P.0 cm/sec 0.20 sec 7.4 mmHg 68.0 mmHg MV E/A: 0.86 AI dec slope: 238.2 cm/sec2 AI P1/2t: 506.9 msec LV V1 max PG: PA V2 max: PI end-d radha: TR max radha: 2.1 mmHg 106.2 cm/sec 159.3 cm/sec 370.4 cm/sec LV V1 max: PA max P.5 mmHg TR max P.7 cm/sec 55.1 mmHg Left Ventricle There is normal left ventricular wall thickness. The left ventricle is moderately to severly dilated. LV EF is <than 20%. Left ventricular systolic function is severely reduced. Doppler measurements suggest impaired left ventricular relaxation, which is associated with grade I/IV or mild diastolic dysfunction. There is severe global hypokinesis of the left ventricle. There is no thrombus. There is no ventricular septal defect visualized. Right Ventricle The right ventricle is mild to moderately dilated. The right ventricular systolic function is mildly reduced. Atria The right atrium is mild to moderately dilated. The left atrium is moderately dilated. The interatrial septum is intact with no evidence for an atrial septal defect. Mitral Valve There is no evidence of mitral valve prolapse. There is no vegetation seen on the mitral valve. There is no mitral valve stenosis. There is a moderate to severe amount of mitral regurgitation. Aortic Valve There is no aortic valvular vegetation. There is no aortic valve stenosis. There is no LVOT obstruction. There is Aortic Sclerosis without stenosis. There is a mild amount of aortic regurgitation. Tricuspid Valve There is no tricuspid stenosis. There is a severe amount of tricuspid regurgitation. There is servere pulmonary hypertension by echo. RVSP is 75 mm of Hg , with RA mean of 15. Pulmonic Valve There is no pulmonic valvular stenosis. There is a mild amount of pulmonic regurgitation. Great Vessels The aortic root is normal size. Effusions There is no pericardial effusion. : TERESA EDWARD > Lucrecia Bazan
[2017-06-19] MEDS: GABAPENTIN 300 MG CAPSULE PO SCH (21:51)
--- NOTE | 2017-06-20 01:03 | CONSULTATION REPORT E ---
Consultation Report NAME: RANDELL STERLING : 1935 AGE: 82Y DATE: 06/19/2017 ROOM: 421 A TO: CORRY PIMENTEL M.D. FROM: BRIAN JONES M.D. Requesting Physician REASON FOR CONSULTATION: Congestive heart failure and elevated troponin I. HISTORY OF PRESENT ILLNESS: The patient is an 82-year-old female with a history of morbid obesity, history of congestive heart failure, history of coronary artery disease, history of paroxysmal atrial fibrillation, history of diet controlled diabetes mellitus, and history of chronic kidney disease who came in complaining of a few days of leg edema, PND, orthopedic but no chest pain or palpitations. There is no syncope. No TIA or CVA symptoms. No chest pain. Initial potassium was 6.3 and her GFR was 21 mL which is stage 4. She was given diuretic and also Kayexalate and her potassium has come down to 5.2. Although she denied any chest pain or discomfort her troponin I has been elevated to 0.279 and 0.183. She denies any depression. She has symptom of biventricular failure. PAST MEDICAL HISTORY: Positive for a history of paroxysmal atrial fibrillation, history of congestive heart failure, history of coronary artery disease with no anginal symptoms, it is not clear if the patient had an VT or not. She has a history of sleep apnea and uses CPAP. She has history of diabetes mellitus type 2, was on insulin but a few months before her diabetes was controlled with diet only. She has a history of chronic kidney disease. She also has a history of hypertension and hyperlipidemia. An EKG also shows a left bundle branch block pattern. PAST SURGICAL HISTORY: Positive for cholecystectomy and hysterectomy. SOCIAL HISTORY: The patient has never smoked. No history of EtOH abuse. CODE STATUS: The patient is a full code. She states her daughter is her surrogate healthcare decision maker. FAMILY HISTORY: Positive for coronary artery disease and hypertension. ALLERGIES: 1. TALWIN. 2. CODEINE. 3. DEMEROL. 4. MORPHINE. 5. SULFA. MEDICATIONS: 1. Tylenol 650 mg p.o. q.4 hours p.r.n. 2. Aspirin 325 mg p.o. daily. 3. Atorvastatin 80 mg p.o. x1 and 80 mg p.o. at bedtime. 4. Calcium gluconate 1000 mg. 5. Dextrose 50 mL IV x1 for the increased potassium. 6. Coreg 6.25 mg p.o. q.12 hours. 7. Plavix 75 mg p.o. daily. 8. Hypoglycemic precautions with glutose 40% gel, 15 grams p.o. p.r.n. and 30 grams p.o. p.r.n. hypoglycemia. 9. Hypoglycemic precautions with dextrose 50%, 12.5 grams and 25 grams IV p.r.n. 10. Colace 25 grams IV p.r.n. 11. Colace 100 mg p.o. daily. 12. Gabapentin 300 mg p.o. at bedtime. 13. Glucagon 1 mg IM p.r.n. 14. Heparin 5000 units which is q.8 hours. 15. Accu-cheks a.c., t.i.d., and at bedtime with sliding scale regular insulin coverage. 16. Ipratropium albuterol sulfate 3 mL nebulizer treatment x1. 17. She did get a normal saline bolus of 250 mL. 18. Xopenex 1.25 mg nebulizer treatment q.8 hours p.r.n. 19. Levothyroxine 0.1 mg p.o. daily along with 0.025 mg p.o. daily. 20. Magnesium hydroxide 30 mL p.o. at bedtime p.r.n. 21. Singulair 10 mg p.o. daily. 22. Nitro-Dur 5 mg per hour, 1 topically to chest wall daily. 23. Zofran 4 mg IV q.6 hours p.r.n. 24. She did get Kayexalate 30 grams p.o. x1. REVIEW OF SYSTEMS: CONSTITUTIONAL: Complains of generalized fatigue and weakness but no fever, chills, or rigors. HEAD: Denies any head injury or dizziness. EYES: No history of amblyopia or diplopia. No history of amaurosis fugax. EARS: The patient has hearing loss, but there is no tinnitus, no recurrent ear infections. NOSE: There is no deviated nasal septum. There is no inflammation of the nasal mucous membranes. There is no hay fever. MOUTH: No altered taste sensation. No ulcers in the mouth. No bleeding from the gums. THROAT: No odynophagia or dysphagia. No recurrent sore throats. SKIN: No petechiae or ecchymosis. No skin rashes or skin lesions. No pruritus. No yellowish discoloration of the skin. NECK: Denies any painful or enlarged neck lymph nodes, no goiter. LUNGS: History of COPD present, past history of pneumonia but none recently. No history of pulmonary embolism. History of sleep apnea uses CPAP. No hemoptysis. No cough or sputum production. No pleuritic chest pain. CARDIAC: History of coronary artery disease with no anginal symptoms. History of hypertension present. History of congestive heart failure, most likely acute on chronic. The patient started a few days ago with leg swelling, PND, and orthopnea but no chest pain, no discomfort. History of paroxysmal atrial fibrillation. ENDOCRINE: History of hypothyroidism on replacement. History of diabetes mellitus, at present diet controlled. RENAL: History of chronic kidney disease stage 4 with hyperkalemia. No symptoms of UTI. No hematuria, pyuria, or dysuria. MUSCULOSKELETAL: Denies any history of arthritis or collagen vascular disease. CENTRAL NERVOUS SYSTEM: No history of TIA or CVA. A history of sleep apnea present. No history of seizures or migraines. PSYCHIATRIC: No history of anxiety or depression. No suicidal ideation or homicidal ideation. VASCULAR: No calf or buttock claudication. No DVT. HEMATOLOGICAL: No bleeding diathesis. No clotting disorders. PHYSICAL EXAMINATION: VITAL SIGNS: On examination the patient is afebrile with a temperature of 97.2 degrees Fahrenheit, pulse is 72 beats per minute, blood pressure is 127/78, respirations are 20 per minute, O2 saturations are 100% on 5L nasal cannula. HEENT: Head is atraumatic, normocephalic. Eyes: Pupils are equal, round and regular, reactive to light and accommodation. Extraocular movements are normal. There is no conjunctival pallor. There is no scleral icterus. Ears: Tympanic membranes are intact, external canals are clear. Nose: There is no deviated nasal septum. There is no inflammation of the nasal mucous membrane. Mouth: Mucous membrane of the mouth moist, tongue is moist. There is no ulcers. There is no bleeding from the gums. Throat: There is no redness in the oropharynx. There are no exudates. SKIN: There are no skin rashes. There is no petechiae or ecchymosis. There are no skin lesions. There are no skin rashes. NECK: Supple. There is JVD present. There is no lymphadenopathy. There is no goiter. Carotids are equal. There is no bruit. LUNGS: Show bibasilar rales of CHF. There is diminished air entry and prolonged expiration on auscultation. There is hyperresonance on percussion. HEART: S1 and S2 is heard. There is no S3 gallop. There is no S4 gallop. There is a systolic murmur of mild TR present. ABDOMEN: Soft, nontender. There is no hepatosplenomegaly. Bowel sounds are well heard. EXTREMITIES: Femorals are diminished. There are no femoral bruits. Leg pulses are diminished. There is 2+ pedal edema bilaterally. There is no cyanosis or clubbing. There is no DVT or cellulitis. CENTRAL NERVOUS SYSTEM: The patient is conscious, awake, alert and oriented x3 with no focal deficits. PSYCHIATRIC: The patient's judgment and insight are intact. Her affect is normal. IMAGING STUDIES: Chest x-ray showed cardiomegaly with congestive heart failure. DIAGNOSTIC STUDIES: EKG shows sinus rhythm with left bundle branch block pattern. The patient's echocardiogram shows normal left ventricular wall thickness, the left ventricle is moderately to severely dilated. Left ventricular systolic function is severely reduced. There is severe global hypokinesis of the left ventricle. There is no thrombus. The left ventricular ejection fraction is less than 20%. The right ventricular systolic function is mildly reduced. The right atrium is mild to moderately dilated. The right ventricle is mild to moderately dilated. The left atrium is moderately dilated. There is moderate to severe amount of mitral regurgitation. There is no aortic valve stenosis. There is mild amount of aortic regurgitation. There is severe amount of tricuspid regurgitation. The right ventricular systolic pressure is severely elevated at 75 mmHg with an RA mean of 15. There is no pericardial effusion. LABORATORY DATA: The patient's sodium is 140, potassium is 5.2, chloride is 104, CO2 is 23. The patient's BUN is 65, creatinine is 2.27 and the GFR is reduced at 21 mL which is chronic kidney disease stage 4. The patient's glucose is 134. The patient's calcium is 10. The patient's troponin I was 0.279 and subsequently 0.183. The white count is 7300, hemoglobin is 15.4, hematocrit is 46.5, and the patient's platelet count is 167,000. IMPRESSION: 1. Occasional chronic congestive heart failure due to a loop diuretic and transluminal nitro. Would recommend starting the patient on hydralazine which we will start tomorrow. The patient may need ionotropic support. 2. Acute on chronic renal failure, CKD stage 4. Continue current treatment. Nephrology is on board. 3. Hyperkalemia. Potassium is still up but just only mildly elevated. 4. Hypertension, well-controlled. 5. Elevated troponin I. 6. History of CAD with no anginal symptoms. 7. Diet controlled diabetes mellitus. 8. Moderate to severe mitral regurgitation. 9. Severe tricuspid regurgitation. 10. Severe pulmonary hypertension. 11. Paroxysmal atrial fibrillation. 12. Left bundle branch block pattern. 13. Hypothyroidism. RECOMMENDATIONS: We will start the patient on hydralazine from tomorrow. Also we will discuss with the patient regarding her code status again and also we will start the patient on ionotropic agent and nitrates. We will discuss with the hospitalist. Note that the patient was seen and examined, 45 minutes spent on this patient with more than 50% of the time spent on direct patient care. Echo was discussed with the patient and with the attending physician on the case. Her medications have been reviewed. Medications have been added. More than 50% of the time spent on direct patient care. Continue replacement of hypothyroid. Note in view of the multiple comorbidities on this patient medical decision making is slightly complex in nature. We will follow with you. DICTATING PHYSICIAN: CORRY PIMENTEL M.D. [id number] Y#: [id number] ID: [id number] JOB#: [id number] ACCT: [id number] cc:CORRY PIMENTEL M.D. >
[2017-06-20] MEDS: HEPARIN SOD (PORCINE) 5,000 UNIT/ML 1 ML SYRINGE SUBCUT SCH ×3 (05:40→21:08)
--- NOTE | 2017-06-20 08:12 | RADIOLOGY REPORT (SQ) ---
EXAM DESCRIPTION: U/S RETROPERITON (RENAL/AORTA) COMPLETED DATE/TIME: 06/20/2017 7:19 am REASON FOR STUDY: QUIQUE, possible obstruction COMPARISON: None. TECHNIQUE: Dynamic and static grayscale images acquired of the kidneys and bladder and recorded on P ACS. Additional selected color Doppler and spectral images recorded. LIMITATIONS: Large patient FINDINGS: RIGHT KIDNEY: 9.5 cm in length. No gross hydronephrosis, cysts, stones, or masses. LEFT KIDNEY: 9 cm in length. No gross hydronephrosis,, stones, or masses. BLADDER: Decompressed by Wise catheter, not visualized OTHER FINDINGS: Small amount of right upper quadrant free fluid IMPRESSION: No hydronephrosis. TECHNICAL DOCUMENTATION: JOB ID: [id number] [employer]- All Rights Reserved
[2017-06-20 08:30] LABS: HEMATOCRIT 43.9 % (36.0-47.0); HEMOGLOBIN 14.4 g/dL (12.0-15.5); HGB HCT DIFFERENCE -0.7; MEAN CORPUSCULAR HGB CONC 32.8 g/dL (32.0-36.0); MEAN CORPUSCULAR VOLUME 104 fl (80-97); RED BLOOD COUNT 4.24 10^6/uL (3.72-5.28); RED CELL DISTRIBUTION WIDTH 15.9 % (11.5-14.0)
[2017-06-20 09:03] LABS: ABSOLUTE EOSINOPHILS# (MANUAL) 0.7 10^3/uL (0.0-0.6); ANISOCYTOSIS 1+; BASOPHILS % (MANUAL) 1 % (0-2); EOSINOPHILS % (MANUAL) 7 % (0-6); LYMPHOCYTES % (MANUAL) 8 % (13-45); OVALOCYTES 1+; POIKILOCYTOSIS 1+; POLYCHROMASIA 1+; TOTAL CELLS COUNTED 100; TOXIC VACUOLATION PRESENT
[2017-06-20 09:09] LABS: ANION GAP 11 (5-19); BLOOD UREA NITROGEN 68 mg/dL (7-20); CALCIUM 9.2 mg/dL (8.4-10.2); CARBON DIOXIDE 25 mmol/L (22-30); CHLORIDE 103 mmol/L (98-107); CREATININE RESULT 2.15 mg/dL (0.52-1.25); GLUCOSE 132 mg/dL (75-110); POTASSIUM 4.4 mmol/L (3.6-5.0); SODIUM 138.6 mmol/L (137-145)
[2017-06-20] MEDS: LEVOTHYROXINE SODIUM 0.1 MG TABLET PO SCH (09:45)
[2017-06-20] MEDS: CARVEDILOL 6.25 MG TABLET PO SCH ×2 (09:45→21:11)
[2017-06-20] MEDS: LEVOTHYROXINE SODIUM 0.025 MG TABLET PO SCH (09:46)
[2017-06-20] MEDS: CLOPIDOGREL BISULFATE 75 MG TABLET PO SCH (09:46)
[2017-06-20] MEDS: MONTELUKAST SODIUM 10 MG TABLET PO SCH (09:46)
[2017-06-20] MEDS: NITROGLYCERIN 5 MG (0.2 MG/HR) PATCH.TD24 TD SCH (09:46)
[2017-06-20] MEDS: ASPIRIN 325 MG TABLET PO SCH (09:46)
[2017-06-20] MEDS: DOCUSATE SODIUM 100 MG CAPSULE PO SCH (09:47)
--- NOTE | 2017-06-20 14:00 | Palliative Consultation Report ---
Consultation Consult Reason: renal failure - HPI HPI: Appreciate palliative care consult with this 82 year old newly lady who is admitted for renal failure and CHF. Mrs. Kennedy is alert and willing to talk with me when I visited. Her son from [place] is at her beside. Patient states she feels very weak and is having some dyspnea due to too much fluid. She denies pain and is able to converse without dyspnea, wearing her oxygen pre nasal cannula. Patient reports that in the last week she has progressively been feeling worse. She called her doctor but could not get an appointment until next month. She finally decided to come to the ER. She is being treated for hyperkalemia and renal failure in addition to her CHF. However, she is very alert and able to make decisions for herself as well as tell me accurate stories from her past with her son present. We did discuss resuscitation. Mrs. Kennedy states she does NOT want CPR or any resuscitation, does NOT want feeding tube or to kept alive on any machines. SHe is OK with IV antibiotics and IVs for short time. MOST form completed adn given to her son to take to her house with portable DNR form. I also put DNR form on her hospital chart. Mrs. Kennedy states she discussed these matters with her doctor here this AM, but as of now, the chart still reads full code. Discussed with patient's nurse who will let doctor know of my discussion with her also. Onset: Last week Onset/Duration: Gradual Quality of Pain: No pain Associated Symptoms: Chest pain, Leg swelling, Shortness of breath, Weakness Exacerbated by: Standing, Movement, Walking, Coughing Past Medical History(Consults) - General Information Source: Patient, Relative, [facility] Records Home Medications: Allopurinol [Zyloprim 100 mg Tablet] 200 mg PO DAILY 06/18/17 Betamethasone Valerate [Valisone 0.1 % Lotion] 1 applic TP DAILY 06/18/17 Bromfenac Sodium [Bromsite] 1 drop OU DAILY 06/18/17 Difluprednate [Durezol] 1 drop OU Q8 06/18/17 Furosemide [Lasix 40 mg Tablet] 40 mg PO QAM 06/18/17 Gabapentin [Neurontin 300 mg Capsule] 300 mg PO QHS 06/18/17 Glipizide [Glipizide ER] 2.5 mg PO DAILY 06/18/17 Levalbuterol HCl [Xopenex Neb 1.25 mg/3 ml Ampul] 1.25 mg NEB RTQ6HP PRN Levalbuterol Tartrate [Xopenex Hfa] 1 puff IH Q6HP PRN 06/18/17 Levothyroxine Sodium [Synthroid] 125 mcg PO DAILY 06/18/17 Magnesium Oxide [Mag-Ox 400 mg Tablet] 400 mg PO DAILY 06/18/17 Metolazone [Zaroxolyn 2.5 Mg Tablet] 2.5 mg PO MOWEFR@08 PRN 06/18/17 Metoprolol Succinate [Toprol Xl 25 mg Tab.sr] 25 mg PO DAILY 06/18/17 Montelukast Sodium [Singulair 10 mg Tablet] 10 mg PO QHS 06/18/17 Potassium Chloride [Klor-Con 10 Meq Tablet.sa] 10 meq PO DAILY 06/18/17 Allergies/Adverse Reactions: pentazocine lactate [From Talwin] Allergy (Severe, Verified 06/18/17 10:20) Anaphylaxis codeine [Codeine] Allergy (Verified 06/18/17 10:20) Confusion meperidine HCl [From Demerol] Allergy (Verified 06/18/17 10:20) Disorientation morphine [Morphine] Allergy (Verified 06/18/17 10:20) Confusion Sulfa (Sulfonamide Antibiotics) Allergy (Verified 06/18/17 10:22) Flushing - Social History Lives with: Alone Family History: None Parental Family History Reviewed: No Children Family History Reviewed: No Sibling(s) Family History Reviewed.: No Smoking Status: Former Smoker Cigarettes Packs Per Day: 0 Cigars Per Day: 0 Pipes Per Day: 0 Number of Years Smokin Frequency of Alcohol Use: None Hx Recreational Drug Use: No Hx Prescription Drug Abuse: No - Past Medical History Cardiac Medical History: Reports: Hx Atrial Fibrillation, Hx Congestive Heart Failure Pulmonary Medical History: Reports: Hx Sleep Apnea EENT Medical History: Reports: None Endocrine Medical History: Reports: Hx Diabetes Mellitus Type 2 Renal/ Medical History: Denies: Hx Peritoneal Dialysis Review of systems Constitutional: Weakness, Weight gain Cardiovascular: Orthopnea, Dyspnea, Edema Respiratory: Cough, Short of breath Gastrointestinal: Abdomen distended Geniturinary: Retention Musculoskeltal: No symptoms reported Neurological/Psychological: Anxiety Ojective:Exam Vital Signs: Temp Pulse Resp BP Pulse Ox 97.2 F 69 18 110/66 97 06/20/17 11:18 06/20/17 11:18 06/20/17 11:18 06/20/17 11:18 06/20/17 11:18 Intake & Output 06/19/17 06/20/17 06/21/17 06:59 06:59 06:59 Intake Total 749 1032 Output Total 1115 1025 Balance -366 7 Weight 100.7 kg 93 kg - General General Appearance: Alert In distress: Mild Note:: Using oxygen, speaking without dyspnea, but states she is noticing shortness of breath and fullness in her abdomen. - HEENT Head: Normocephalic Eyes: Normal Conjunctiva: Normal Pupils: PERRLA - Respiratory Chest Status: Pain with cough Breath sounds: Decreased air movement - Cardiovascular Rhythm: Regular Pulses: Normal: Radial - Abdominal Distension: Distended Bowel Sounds: Normal - Neurological Cognition: Normal Orientation: AAOx4, Oriented to time, Disoriented to person Speech: Normal Cranial nerves: Normal - Psychological Associated symptoms: Normal affect, Decreased appetite Objective-Diagnostic Laboratory: 06/20/17 08:21 06/20/17 08:21 06/20/17 06/20/17 08:21 08:21 WBC 10.0 RBC 4.24 Hgb 14.4 Hct 43.9 MCV 104 H MCH 34.0 H MCHC 32.8 RDW 15.9 H Plt Count 170 Seg Neutrophils % Not Reportable Lymphocytes % Not Reportable Monocytes % Not Reportable Eosinophils % Not Reportable Basophils % Not Reportable Absolute Neutrophils Not Reportable Absolute Lymphocytes Not Reportable Absolute Monocytes Not Reportable Absolute Eosinophils Not Reportable Absolute Basophils Not Reportable Sodium 138.6 Potassium 4.4 Chloride 103 Carbon Dioxide 25 Anion Gap 11 BUN 68 H Creatinine 2.15 H Est GFR ( Amer) 27 L Est GFR (Non-Af Amer) 22 L Glucose 132 H Calcium 9.2 06/18/17 06/18/17 06/18/17 01:22 01:22 06:40 Creatine Kinase 85 73 CK-MB (CK-2) 2.27 Troponin I 0.067 06/18/17 06/18/17 06/18/17 06:40 11:59 11:59 Creatine Kinase 73 CK-MB (CK-2) 1.97 2.20 Troponin I 0.073 0.074 06/19/17 06/19/17 06/20/17 04:19 10:30 07:30 Creatine Kinase CK-MB (CK-2) Troponin I 0.279 0.183 0.109 Plan and Recommendation Plan and Recommendation: As above, did not discuss possibility of decision about dialysis with patient as I did not see where this has ever been mentioned to her or even discussed at this point. SHe did complete MOST form and signed, stating she did not want to be kept alive on any machines and wishes to be DNR. Refuses PEG tube and I suspect she might refuse dialysis if suggested. Her son is at bedside and was supportive of her decisons as he understands she has led a very difficult life and is tired. She states she was blessed to be given strength to care for her who in February of this year and now she is "ready to go if called". Appreciate consult request and opportunity to meet and follow with this delightful lady. Will check on her again in a couple of days, if any questions feel free to call me. - Time Spent with Patient Time spent with patient: 40 to 60 Minutes Time: 55 minutes total with patient, chart rreview, consultation with nurse, etc.
--- NOTE | 2017-06-20 15:37 | PDOC PROGRESS REPORT ---
Subjective Progress Note for:: 06/20/17 Reason For Visit: Seen this AM. Feeling lots better as regards her dyspnea and edema. Improved appetite. Her constipation has been relieved yesterday with the SPS. Denies any chest pains. Improving appetite. Physical Exam Vital Signs: Temp Pulse Resp BP Pulse Ox 97.2 F 68 17 110/66 93 06/20/17 11:18 06/20/17 14:20 06/20/17 14:20 06/20/17 11:18 06/20/17 14:20 Intake & Output 06/19/17 06/20/17 06/21/17 06:59 06:59 06:59 Intake Total 749 1032 Output Total 1115 1025 Balance -366 7 Weight 100.7 kg 93 kg General appearance: PRESENT: no acute distress Respiratory exam: PRESENT: clear to auscultation ignacio. ABSENT: crackles, stridor Cardiovascular exam: PRESENT: RRR, +S1, +S2 GI/Abdominal exam: PRESENT: normal bowel sounds, soft. ABSENT: ascites, tenderness Extremities exam: PRESENT: pedal edema - trace+ Neurological exam: PRESENT: alert, awake, oriented to person, oriented to place Skin exam: ABSENT: erythema, mottled Results Laboratory Results: 06/20/17 08:21 06/20/17 08:21 06/20/17 06/20/17 08:21 08:21 WBC 10.0 RBC 4.24 Hgb 14.4 Hct 43.9 MCV 104 H MCH 34.0 H MCHC 32.8 RDW 15.9 H Plt Count 170 Seg Neutrophils % Not Reportable Lymphocytes % Not Reportable Monocytes % Not Reportable Eosinophils % Not Reportable Basophils % Not Reportable Absolute Neutrophils Not Reportable Absolute Lymphocytes Not Reportable Absolute Monocytes Not Reportable Absolute Eosinophils Not Reportable Absolute Basophils Not Reportable Sodium 138.6 Potassium 4.4 Chloride 103 Carbon Dioxide 25 Anion Gap 11 BUN 68 H Creatinine 2.15 H Est GFR ( Amer) 27 L Est GFR (Non-Af Amer) 22 L Glucose 132 H Calcium 9.2 06/18/17 06/18/17 06/18/17 01:22 01:22 06:40 Creatine Kinase 85 73 CK-MB (CK-2) 2.27 Troponin I 0.067 06/18/17 06/18/17 06/18/17 06:40 11:59 11:59 Creatine Kinase 73 CK-MB (CK-2) 1.97 2.20 Troponin I 0.073 0.074 06/19/17 06/19/17 06/20/17 04:19 10:30 07:30 Creatine Kinase CK-MB (CK-2) Troponin I 0.279 0.183 0.109 Impressions: Chest X-Ray 06/17/17 20:43 IMPRESSION: Cardiomegaly with mild central vascular prominence and indistinctness suggests early CHF exacerbation. Renal Ultrasound 06/20/17 00:00 IMPRESSION: No hydronephrosis. Assessment & Plan - Diagnosis (1) Acute on chronic congestive heart failure Qualifiers: Congestive heart failure type: unspecified congestive heart failure type Qualified Code(s): I50.9 - Heart failure, unspecified Is this a current diagnosis for this admission?: Yes Plan: Improved with diuresis. (2) Acute on chronic renal failure Qualifiers: Acute renal failure type: unspecified Chronic kidney disease stage: stage 3 (moderate) Qualified Code(s): N17.9 - Acute kidney failure, unspecified; N18.3 - Chronic kidney disease, stage 3 (moderate); N18.3 - Chronic kidney disease, stage 3 (moderate) Is this a current diagnosis for this admission?: Yes Plan: Secondary to a combination of re renal issues followed by overdiuresis. Hold off on diuretics for now . No indications for PUBLIC HEALTH STAFF NURSE.lytes stable. (3) Hyperkalemia Is this a current diagnosis for this admission?: Yes Plan: Stable now. (4) Hypertension Qualifiers: Hypertension type: renovascular hypertension Qualified Code(s): I15.0 - Renovascular hypertension Is this a current diagnosis for this admission?: Yes Plan: controlled. (5) Diabetes Qualifiers: Diabetes mellitus type: type 2 Diabetes mellitus complication status: with kidney complications Diabetes mellitus complication detail: with chronic kidney disease Diabetes mellitus intermodal customer service insulin use: without intermodal customer service use Chronic kidney disease stage: stage 3 (moderate) Qualified Code(s): E11.22 - Type 2 diabetes mellitus with diabetic chronic kidney disease; N18.3 - Chronic kidney disease, stage 3 (moderate); N18.3 - Chronic kidney disease, stage 3 (moderate) Is this a current diagnosis for this admission?: Yes Plan: adv tight control.
--- NOTE | 2017-06-20 18:10 | PDOC PROGRESS REPORT ---
Subjective Progress Note for:: 06/20/17 Subjective:: Ms. Kennedy is frustrated with how weak she has been lately. She reports that about a month ago, after her , she and her son were trying to arrange some of his affairs and she was walking around town and developed very significant shortness of breath and weakness. She also states that she had left shoulder pain at the time. We talked about the fact that that may have been an DE. I also discussed with her at length her echocardiogram results showing advanced heart failure. She is chest pain-free. Shortness of breath is improved. She still is profoundly weak. We discussed as well her kidney disease. Patient her son and I had a long discussion related to advanced care planning. She states that when the time comes she is ready to a natural . She does not want to be put on a ventilator. She does not want to have cardiac resuscitation. She feels confident that she will be safe with her after she dies. I changed her CODE STATUS to DNR/DNI. I answered her questions to her satisfaction. Reason For Visit: HEART FAILURE Physical Exam Vital Signs: Temp Pulse Resp BP Pulse Ox 97.3 F 70 18 110/65 97 06/20/17 15:56 06/20/17 15:56 06/20/17 15:56 06/20/17 15:56 06/20/17 15:56 Intake & Output 06/19/17 06/20/17 06/21/17 06:59 06:59 06:59 Intake Total 749 1032 1068 Output Total 1115 1025 1175 Balance -366 7 -107 Weight 100.7 kg 93 kg General appearance: PRESENT: no acute distress, cooperative, well-developed, well-nourished Head exam: PRESENT: atraumatic, normocephalic, other - Bitemporal wasting present. Eye exam: PRESENT: EOMI. ABSENT: scleral icterus Mouth exam: PRESENT: dry mucosa Respiratory exam: PRESENT: clear to auscultation ignacio, unlabored. ABSENT: accessory muscle use, prolonged expiratory phas, wheezes Cardiovascular exam: PRESENT: RRR GI/Abdominal exam: PRESENT: normal bowel sounds, soft. ABSENT: distended, guarding, mass, organolmegaly, rebound, tenderness Extremities exam: ABSENT: pedal edema Musculoskeletal exam: ABSENT: deformity Neurological exam: PRESENT: alert, oriented to person, oriented to place, oriented to time, oriented to situation Psychiatric exam: PRESENT: appropriate affect, normal mood Skin exam: PRESENT: dry, warm Results Laboratory Results: 06/20/17 08:21 06/20/17 08:21 06/20/17 06/20/17 08:21 08:21 WBC 10.0 RBC 4.24 Hgb 14.4 Hct 43.9 MCV 104 H MCH 34.0 H MCHC 32.8 RDW 15.9 H Plt Count 170 Seg Neutrophils % Not Reportable Lymphocytes % Not Reportable Monocytes % Not Reportable Eosinophils % Not Reportable Basophils % Not Reportable Absolute Neutrophils Not Reportable Absolute Lymphocytes Not Reportable Absolute Monocytes Not Reportable Absolute Eosinophils Not Reportable Absolute Basophils Not Reportable Sodium 138.6 Potassium 4.4 Chloride 103 Carbon Dioxide 25 Anion Gap 11 BUN 68 H Creatinine 2.15 H Est GFR ( Amer) 27 L Est GFR (Non-Af Amer) 22 L Glucose 132 H Calcium 9.2 06/18/17 06/18/17 06/18/17 01:22 01:22 06:40 Creatine Kinase 85 73 CK-MB (CK-2) 2.27 Troponin I 0.067 06/18/17 06/18/17 06/18/17 06:40 11:59 11:59 Creatine Kinase 73 CK-MB (CK-2) 1.97 2.20 Troponin I 0.073 0.074 06/19/17 06/19/17 06/20/17 04:19 10:30 07:30 Creatine Kinase CK-MB (CK-2) Troponin I 0.279 0.183 0.109 Impressions: Chest X-Ray 06/17/17 20:43 IMPRESSION: Cardiomegaly with mild central vascular prominence and indistinctness suggests early CHF exacerbation. Renal Ultrasound 06/20/17 00:00 IMPRESSION: No hydronephrosis. Assessment & Plan - Diagnosis (1) Acute on chronic congestive heart failure Qualifiers: Congestive heart failure type: systolic Qualified Code(s): I50.23 - Acute on chronic systolic (congestive) heart failure Is this a current diagnosis for this admission?: Yes Plan: Diuretics have been on hold secondary to acute kidney injury. Nephrology and cardiology are consulting. We will continue to hold diuretics for now. Patient is breathing without difficulty. We will continue her beta-ilan. She was on a nitroglycerin patch started yesterday but I discontinued that secondary to hypotension. STACY inhibitors are contraindicated due to acute kidney injury. (2) Acute on chronic renal failure Qualifiers: Acute renal failure type: unspecified Chronic kidney disease stage: stage 3 (moderate) Qualified Code(s): N17.9 - Acute kidney failure, unspecified; N18.3 - Chronic kidney disease, stage 3 (moderate); N18.3 - Chronic kidney disease, stage 3 (moderate) Is this a current diagnosis for this admission?: Yes Plan: Again, diuretics on hold. Encourage good oral intake and a judicious manner. Nephrology is consulting. We will hold nephrotoxic medications as we are able. Potassium is 4.4 today. No indication for dialysis currently. (3) Elevated troponin Is this a current diagnosis for this admission?: Yes Plan: Plateaued and stable. Unlikely acute coronary syndrome. More likely related to heart failure with exacerbation and acute on chronic kidney injury. (4) Hyperkalemia Is this a current diagnosis for this admission?: Yes Plan: Normal today after treatment for hyperkalemia. Will recheck again in the morning. Likely elevated secondary to acute kidney injury. (5) Hypertension Qualifiers: Hypertension type: renovascular hypertension Qualified Code(s): I15.0 - Renovascular hypertension Is this a current diagnosis for this admission?: Yes Plan: Patient's blood pressure was low today, topical nitrates discontinued, blood pressure has been normal this afternoon. Continue to monitor. (6) SHABBIR (obstructive sleep apnea) Is this a current diagnosis for this admission?: Yes - Time Time Spent with patient: 35 or more minutes
[2017-06-20] MEDS: ATORVASTATIN CALCIUM 80 MG TABLET PO SCH (21:11)
[2017-06-20] MEDS: GABAPENTIN 300 MG CAPSULE PO SCH (21:12)
--- NOTE | 2017-06-20 23:53 | PROGRESS NOTE E ---
Progress Note NAME: RANDELL STERLING : 1935 AGE: 82Y DATE: 06/20/2017 ROOM: 421 SUBJECTIVE: The patient states that she is marginally better but still has some shortness of breath, PND, and orthopnea, and also some leg edema which is slightly less than yesterday. She denies any chest pain or discomfort. There is no arrhythmia seen on the monitor. There is no TIA, CVA symptom. OBJECTIVE: GENERAL: The patient is morbidly obese, in mild respiratory distress. VITAL SIGNS: Temperature is 97.2 degrees Fahrenheit, pulse is 69 beats per minute, blood pressure 110/63, respirations 18, O2 saturations are 97% on 0.5 L nasal cannula oxygen. HEENT: Atraumatic, normocephalic. Eyes: Pupils equal, round, reactive to light and accommodation. Extraocular movements are normal. There is no *------*. There is no scleral icterus. ENT is negative. NECK: Supple. There is JVD present. Carotids are equal. There is no bruit, there is no goiter. There is no lymphadenopathy. LUNGS: Shows bibasilar rales with CHF. There is diminished air entry and prolonged expiration on auscultation. There is hyperresonance on percussion. CARDIAC: S1, S2 is heard. There is no S3 gallop. There is no S4 gallop. There is a systolic murmur of severe TR and moderate MR present. ABDOMEN: Soft, nontender. There is no hepatosplenomegaly. Bowel sounds are well heard. EXTREMITIES: Pulses are diminished. There is no femoral bruits. Leg pulses are diminished. There is 1+ ankle edema bilaterally. There is no cyanosis or clubbing. There is no DVT or cellulitis. EMPLOYEE RELATIONS ADVISOR: The patient is conscious, awake, alert, oriented x3 with no focal deficits. PSYCHIATRIC: The patient's judgment and insight are intact. Affect is normal. The patient's 24-hour intake is 1032 mL. Output is 1025 mL. The patient's renal ultrasound is within normal limits. The patient's white count is 10,000, hemoglobin 14.4, hematocrit 43.9, and platelet count 170,000. The patient's sodium is 138.6, potassium 4.4, chloride 103, CO2 of 25. BUN 68, creatinine 2.15. GFR 22 mL, which is stage IV chronic kidney disease. The patient's glucose is 116. The patient's troponin I has trended down to 0.109. Note that the patient's echo is again discussed with the patient. ASSESSMENT: 1. ACUTE ON CHRONIC CONGESTIVE HEART FAILURE. Would recommend stopping the patient's nitroglycerin to see if the blood pressure will come up for better renal perfusion. 2. ACUTE ON CHRONIC RENAL FAILURE ON CHRONIC KIDNEY DISEASE STAGE 4. 3. HYPERKALEMIA, RESOLVED AT PRESENT. Potassium is within normal limits. 4. HYPERTENSION, SLIGHTLY ON THE LOWER SIDE BUT STILL WELL CONTROLLED. 5. ELEVATED TROPONIN I, WHICH IS NOW TRENDING DOWN. 6. HISTORY OF CORONARY ARTERY DISEASE WITH NO ANGINAL SYMPTOMS. 7. DIET-CONTROLLED DIABETES MELLITUS. 8. MODERATE TO SEVERE MITRAL REGURGITATION. 9. SEVERE TRICUSPID REGURGITATION. 10. HISTORY OF PULMONARY HYPERTENSION. 11. PAROXYSMAL ATRIAL FIBRILLATION. 12. LEFT BUNDLE BRANCH BLOCK PATTERN REPORTED HYPOTHYROIDISM. As mentioned earlier, hydroxyzine has not been started. We will want to wait for the patient's blood pressure to come up for better renal perfusion. Hence, the nitrogen has been stopped. The patient has declared herself to be DNR, but the patient request that at least we do something as a temporary medical action so that she can go home comfortably. We will transfer the patient to the ICU tomorrow and put a central line in and start the patient on inotropes and IV nitroglycerin. This has been discussed with the patient. As per the patient's request, I have discussed this with the patient's [id number], Andreina Sterling, who is the patient's surrogate healthcare decision maker, along with the patient's son. I also discussed with the hospitalist taking care of the patient. Note again, the echo has been rediscussed. The patient's medications have been reviewed. Note, nephrology on the case is not appreciated. Note, medical decision making is of highly confidential nature in view of the patient's multiple medical problems. I will discuss with Andreina Marcia about the plan to transfer to the ICU tomorrow and get a central line placed and start the patient on inotropes and hydralazine, and also nitroglycerin drip. The patient's medications have been reviewed. DICTATING PHYSICIAN: CORRY PIMENTEL M.D. [id number] PHY#: [id number] ID: [id number] JOB#: [id number] ACCT: [id number] cc: >
[2017-06-21] MEDS: HEPARIN SOD (PORCINE) 5,000 UNIT/ML 1 ML SYRINGE SUBCUT SCH ×3 (05:30→21:39)
[2017-06-21 06:02] LABS: ANION GAP 11 (5-19); BLOOD UREA NITROGEN 71 mg/dL (7-20); CALCIUM 9.3 mg/dL (8.4-10.2); CARBON DIOXIDE 22 mmol/L (22-30); CHLORIDE 105 mmol/L (98-107); CREATININE RESULT 2.23 mg/dL (0.52-1.25); GLUCOSE 91 mg/dL (75-110); POTASSIUM 4.8 mmol/L (3.6-5.0); SODIUM 137.6 mmol/L (137-145)
[2017-06-21] MEDS: LEVOTHYROXINE SODIUM 0.1 MG TABLET PO SCH (10:42)
[2017-06-21] MEDS: ASPIRIN 325 MG TABLET PO SCH (10:42)
[2017-06-21] MEDS: MONTELUKAST SODIUM 10 MG TABLET PO SCH ×2 (10:42→21:38)
[2017-06-21] MEDS: LEVOTHYROXINE SODIUM 0.025 MG TABLET PO SCH (10:42)
[2017-06-21] MEDS: DOCUSATE SODIUM 100 MG CAPSULE PO SCH (10:42)
[2017-06-21] MEDS: CLOPIDOGREL BISULFATE 75 MG TABLET PO SCH (10:42)
[2017-06-21] MEDS: NITROGLYCERIN 5 MG (0.2 MG/HR) PATCH.TD24 TD SCH (10:43)
[2017-06-21] MEDS: CARVEDILOL 6.25 MG TABLET PO SCH (10:43)
--- NOTE | 2017-06-21 17:08 | PDOC PROGRESS REPORT ---
Subjective Progress Note for:: 06/21/17 Reason For Visit: She is doing some better.Much improved dyspnea. No chest pains,m fever or chills. Appetite is still down. Physical Exam Vital Signs: Temp Pulse Resp BP Pulse Ox 97.5 F 68 23 H 116/68 99 06/21/17 12:00 06/21/17 14:12 06/21/17 14:12 06/21/17 14:12 06/21/17 14:12 Intake & Output 06/20/17 06/21/17 06/22/17 06:59 06:59 06:59 Intake Total 1032 1408 Output Total 1025 1800 Balance 7 -392 Weight 93 kg 93.5 kg General appearance: PRESENT: no acute distress Respiratory exam: PRESENT: clear to auscultation ignacio. ABSENT: crackles, stridor Cardiovascular exam: PRESENT: RRR, +S1, +S2 GI/Abdominal exam: PRESENT: normal bowel sounds, soft. ABSENT: ascites, tenderness Extremities exam: ABSENT: pedal edema Neurological exam: PRESENT: alert, awake, oriented to person, oriented to place Results Laboratory Results: 06/20/17 08:21 06/21/17 04:58 06/21/17 04:58 Sodium 137.6 Potassium 4.8 Chloride 105 Carbon Dioxide 22 Anion Gap 11 BUN 71 H Creatinine 2.23 H Est GFR ( Amer) 26 L Est GFR (Non-Af Amer) 21 L Glucose 91 Calcium 9.3 Magnesium 2.0 06/18/17 06/18/17 06/18/17 01:22 01:22 06:40 Creatine Kinase 85 73 CK-MB (CK-2) 2.27 Troponin I 0.067 06/18/17 06/18/17 06/18/17 06:40 11:59 11:59 Creatine Kinase 73 CK-MB (CK-2) 1.97 2.20 Troponin I 0.073 0.074 06/19/17 06/19/17 06/20/17 04:19 10:30 07:30 Creatine Kinase CK-MB (CK-2) Troponin I 0.279 0.183 0.109 Impressions: Chest X-Ray 06/17/17 20:43 IMPRESSION: Cardiomegaly with mild central vascular prominence and indistinctness suggests early CHF exacerbation. Renal Ultrasound 06/20/17 00:00 IMPRESSION: No hydronephrosis. Assessment & Plan - Diagnosis (1) Acute on chronic congestive heart failure Qualifiers: Congestive heart failure type: systolic Qualified Code(s): I50.23 - Acute on chronic systolic (congestive) heart failure Is this a current diagnosis for this admission?: Yes Plan: Improved with diuresis. (2) Acute on chronic renal failure Qualifiers: Acute renal failure type: unspecified Chronic kidney disease stage: stage 3 (moderate) Qualified Code(s): N17.9 - Acute kidney failure, unspecified; N18.3 - Chronic kidney disease, stage 3 (moderate); N18.3 - Chronic kidney disease, stage 3 (moderate) Is this a current diagnosis for this admission?: Yes Plan: Stable currently. Non oliguric. Renal US negative for obstructive lesions. Still off on diuretics for now . No indications for BOLOGNA MAKER.lytes stable. (3) Hyperkalemia Is this a current diagnosis for this admission?: Yes Plan: Stable now. (4) Hypertension Qualifiers: Hypertension type: renovascular hypertension Qualified Code(s): I15.0 - Renovascular hypertension Is this a current diagnosis for this admission?: Yes Plan: controlled. (5) Diabetes Qualifiers: Diabetes mellitus type: type 2 Diabetes mellitus complication status: with kidney complications Diabetes mellitus complication detail: with chronic kidney disease Diabetes mellitus ocean transportation intermediary insulin use: without correction use Chronic kidney disease stage: stage 3 (moderate) Qualified Code(s): E11.22 - Type 2 diabetes mellitus with diabetic chronic kidney disease; N18.3 - Chronic kidney disease, stage 3 (moderate); N18.3 - Chronic kidney disease, stage 3 (moderate) Is this a current diagnosis for this admission?: Yes
[2017-06-21] MEDS ORDERED: LIDOCAINE 1% INJ-PF (10 MG/ML) 30 ML SDV ONE (18:54)
[2017-06-21] MEDS ORDERED: LIDOCAINE 1% INJ-PF (10 MG/ML) 30 ML SDV INJ PRN (19:17)
--- NOTE | 2017-06-21 19:18 | Operative Report ---
Operative Report DATE OF SURGERY: 06/21/17 PREOPERATIVE DIAGNOSIS: Cardiogenic shock POSTOPERATIVE DIAGNOSIS: Same OPERATION: Ultrasound directed insertion of left internal jugular vein centimeter excessive catheter. Interpretation portable upright chest x-ray SURGEON: ROSSANA DAVIS ANESTHESIA: Local TISSUE REMOVED OR ALTERED: None COMPLICATIONS: None ESTIMATED BLOOD LOSS: Scant INTRAOPERATIVE FINDINGS: See below PROCEDURE: Informed consent was obtained. The patient was placed in Trendelenburg the left left neck and chest wall were exposed, and prepped and draped in a sterile fashion. Surgical plan and surgical timeout discussed. The left neck was anesthetized with 1% lidocaine without epinephrine. Using the variable frequency linear transducer, real time, a 18-gauge needle and wire were threaded into the left internal jugular vein. The tract was dilated up, the dilator removed, and the triple-lumen central venous access catheter was threaded into the left internal jugular vein uneventfully to the hub. There was excellent aspiration and flush of saline through all 3 lumens. The catheter was affixed to the skin with a Biopatch and 2-0 silk suture; sterile dressing applied. The patient tolerated the procedure well. There were no complications. Portable upright chest x-ray showed the line to be in good position tip of the catheter in the deep right atrium, and no evidence of pneumothorax.
--- NOTE | 2017-06-21 19:33 | RADIOLOGY REPORT (SQ) ---
EXAM DESCRIPTION: CHEST SINGLE VIEW COMPLETED DATE/TIME: 06/21/2017 7:15 pm REASON FOR STUDY: central line placement COMPARISON: 06/17/2017 EXAM PARAMETERS: NUMBER OF VIEWS: One view. TECHNIQUE: Single frontal radiographic view of the chest acquired. RADIATION DOSE: NA LIMITATIONS: None. FINDINGS: LUNGS AND PLEURA: No pneumothorax. Similar interstitial markings. No consolidation or si gnificant effusion. MEDIASTINUM AND HILAR STRUCTURES: Stable. HEART AND VASCULAR STRUCTURES: Stable cardiomegaly. BONES: No acute findings. HARDWARE: New left IJ central venous catheter with tip overlying the RA-SVC junction. OTHER: No other significant finding. IMPRESSION: New left IJ central venous catheter with tip overlying the RA-SVC junction.No pneumothor ax. Similar interstitial markings. TECHNICAL DOCUMENTATION: JOB ID: [id number] [place]-72 2010 [employer]- All Rights Reserved
--- NOTE | 2017-06-21 19:40 | PDOC PROGRESS REPORT ---
Subjective Progress Note for:: 06/21/17 Subjective:: No chest pain, no shortness of breath, patient is still feeling weak, no fevers or chills. No cough or sputum. Agrees with transfer to ICU for central line placement and inotropes. Reason For Visit: HEART FAILURE Acute on chronic kidney injury Physical Exam Vital Signs: Temp Pulse Resp BP Pulse Ox 97.6 F 71 16 110/63 100 06/21/17 17:46 06/21/17 18:00 06/21/17 18:00 06/21/17 18:00 06/21/17 18:00 Intake & Output 06/20/17 06/21/17 06/22/17 06:59 06:59 06:59 Intake Total 1032 1408 10 Output Total 1025 1800 250 Balance 7 -392 -240 Weight 93 kg 93.5 kg General appearance: PRESENT: no acute distress, cooperative Head exam: PRESENT: atraumatic, normocephalic Eye exam: PRESENT: EOMI Mouth exam: PRESENT: moist Respiratory exam: PRESENT: clear to auscultation ignacio, decreased breath sounds. ABSENT: rales, rhonchi, wheezes Cardiovascular exam: PRESENT: RRR, systolic murmur Neurological exam: PRESENT: alert, awake, oriented to person, oriented to place , oriented to situation Psychiatric exam: PRESENT: appropriate affect Skin exam: PRESENT: dry, warm Results Laboratory Results: 06/20/17 08:21 06/21/17 04:58 06/21/17 04:58 Sodium 137.6 Potassium 4.8 Chloride 105 Carbon Dioxide 22 Anion Gap 11 BUN 71 H Creatinine 2.23 H Est GFR ( Amer) 26 L Est GFR (Non-Af Amer) 21 L Glucose 91 Calcium 9.3 Magnesium 2.0 06/18/17 06/18/17 06/18/17 01:22 01:22 06:40 Creatine Kinase 85 73 CK-MB (CK-2) 2.27 Troponin I 0.067 06/18/17 06/18/17 06/18/17 06:40 11:59 11:59 Creatine Kinase 73 CK-MB (CK-2) 1.97 2.20 Troponin I 0.073 0.074 06/19/17 06/19/17 06/20/17 04:19 10:30 07:30 Creatine Kinase CK-MB (CK-2) Troponin I 0.279 0.183 0.109 Impressions: Renal Ultrasound 06/20/17 00:00 IMPRESSION: No hydronephrosis. Chest X-Ray 06/21/17 18:57 IMPRESSION: New left IJ central venous catheter with tip overlying the RA-SVC junction.No pneumothorax. Similar interstitial markings. Assessment & Plan - Diagnosis (1) Acute on chronic congestive heart failure Qualifiers: Congestive heart failure type: systolic Qualified Code(s): I50.23 - Acute on chronic systolic (congestive) heart failure Is this a current diagnosis for this admission?: Yes Plan: Patient is feeling well today. She does still feel weak. She has seen Dr. Bazan who is transferring her to the unit for inotropes. Those are stable and on concerning today. (2) Acute on chronic renal failure Qualifiers: Acute renal failure type: unspecified Chronic kidney disease stage: stage 3 (moderate) Qualified Code(s): N17.9 - Acute kidney failure, unspecified; N18.3 - Chronic kidney disease, stage 3 (moderate); N18.3 - Chronic kidney disease, stage 3 (moderate) Is this a current diagnosis for this admission?: Yes Plan: Creatinine worsened today. Please see above. (3) Elevated troponin Is this a current diagnosis for this admission?: Yes (4) Hyperkalemia Is this a current diagnosis for this admission?: Yes (5) Hypertension Qualifiers: Hypertension type: renovascular hypertension Qualified Code(s): I15.0 - Renovascular hypertension Is this a current diagnosis for this admission?: Yes (6) SHABBIR (obstructive sleep apnea) Is this a current diagnosis for this admission?: Yes - Time Time Spent with patient: 35 or more minutes
[2017-06-21] MEDS ORDERED: FUROSEMIDE INJ/PF 20 MG/2 ML SDV IV ONE (20:15)
[2017-06-21] MEDS: NORMAL SALINE 250 ML with FUROSEMIDE 250 MG IV PRN ×2 (21:18)
[2017-06-21] MEDS: DEXTROSE 5%-WATER 250 ML with NOREPINEPHRINE BITARTRATE 4 MG IV PRN ×2 (21:18)
[2017-06-21] MEDS: ATORVASTATIN CALCIUM 80 MG TABLET PO SCH (21:38)
[2017-06-21] MEDS: GABAPENTIN 300 MG CAPSULE PO SCH (21:38)
--- NOTE | 2017-06-22 02:03 | PROGRESS NOTE E ---
Progress Note NAME: RANDELL STERLING : 1935 AGE: 82Y DATE: 06/21/2017 ROOM: 608 SUBJECTIVE: Note that the patient was transferred to the ICU and subsequently did get a triple-lumen catheter placed. The patient states shortness of breath is improved, but she still has JVD elevated and still has some pedal edema. She denies any chest pain or discomfort. There is some orthopnea but no PND. There is no arrhythmia seen on the monitor. OBJECTIVE: On examination, the patient is morbidly obese. She is well groomed. She is afebrile with a temperature of 97 degrees Fahrenheit. Pulse 71 beats per minute. Blood pressure is 110/63. Respirations 16 per minute. O2 sats are 100% on 2 liters nasal cannula. Head is atraumatic, normocephalic. Eyes: Pupils are equal, round, reactive to light and accommodation. Extraocular movements are normal. There is no conjunctival pallor. There is no scleral icterus. ENT is negative. Neck is supple. There is JVD present. Carotids are equal. There is no bruit. There is no goiter. There is no lymphadenopathy. Lungs show bibasilar rales of CHF. There is diminished air entry with prolonged expiration on auscultation. There is hyperresonance on percussion. Cardiac: S1/S2 is heard. There is no S3 gallop. There is no S4 gallop. There is a systolic murmur of severe TR and moderate MR present. Abdomen is soft, nontender. There is no hepatosplenomegaly. Bowel sounds are well heard. Extremities: Pulses are diminished. There are no femoral bruits. Leg pulses are diminished. There is mild ankle edema bilaterally. There is no cyanosis or clubbing. There is no DVT or cellulitis. WATERWORKS CHIEF ENGINEER: The patient is conscious, awake, alert, oriented x3, with no focal deficit. Psychiatric: The patient's judgement and insight are intact, and the affect is normal. The patient's 24-hour intake is 1408 mL, output is *------*. The patient's sodium is 137.6, potassium is 4.8, chloride is 105; the patient's CO2 is 22; the patient's BUN is 71, creatinine is 2.23, the GFR is reduced at 25 mL, which is stage IV; the patient's glucose is 105, and the patient's calcium is 9.3, magnesium is 2.0. ASSESSMENT: 1. ACUTE ON CHRONIC CONGESTIVE HEART FAILURE. 2. ACUTE ON CHRONIC RENAL FAILURE, PATIENT AT PRESENT WITH CHRONIC KIDNEY DISEASE STAGE IV. 3. HYPERKALEMIA, RESOLVED. POTASSIUM IS WITHIN NORMAL LIMITS. 4. HYPERTENSION; BLOOD PRESSURE WELL CONTROLLED. 5. ELEVATED TROPONIN-I; THIS IS NOW TRENDING DOWN. 6. HISTORY OF CORONARY ARTERY DISEASE; NO ANGINA SYMPTOMS. 7. DIET-CONTROLLED DIABETES MELLITUS. 8. MODERATE TO SEVERE MITRAL REGURGITATION. 9. SEVERE TRICUSPID REGURGITATION. 10. HISTORY OF PULMONARY HYPERTENSION WHICH IS SEVERE, PER RECENT ECHO. 11. PAROXYSMAL ATRIAL FIBRILLATION. 12. LEFT BUNDLE BRANCH BLOCK PATTERN. 13. THERE IS CARDIOMYOPATHY WITH SEVERELY REDUCED LV EJECTION FRACTION. 14. HYPOTHYROIDISM. PLAN: Note that the patient, after central line, she was started on Levophed at 1 mcg/min with increase as tolerated. Also the patient was given a bolus of 20 mg of Lasix and Lasix drip started at 3 mg/hour. We will see the results of this. We will continue the patient's Plavix. Continue hypoglycemic precautions. Continue aspirin 325 mg daily. Continue Neurontin. Continue thyroid replacement. We will see the response to the patient's inotropic agents. Once the blood pressure is stable, we will start the patient on IV nitroglycerin. Will increase the Lasix infusion as required, depending on the blood pressure and the urine output and the renal function. Discussed with the patient and the patient's [id number] and also the son. Noted the son and the [id number] are the patient's surrogate healthcare decision makers. Note, 40 minutes spent on this patient with critical care time of 40 minutes, with more than 50% of the time spent on doing patient care, medications reviewed, and medications have been altered and adjusted. Note, this medical decision making was of high complexity. Will follow with you. Discussed with the hospitalist taking care of the patient, and discussed with the nurses in the ICU. DICTATING PHYSICIAN: CORRY PIMENTEL M.D. [id number] PHY#: [id number] ID: [id number] JOB#: [id number] ACCT: [id number] cc: >
[2017-06-22] MEDS: HEPARIN SOD (PORCINE) 5,000 UNIT/ML 1 ML SYRINGE SUBCUT SCH ×3 (06:00→22:41)
[2017-06-22 06:36] LABS: HEMATOCRIT 39.6 % (36.0-47.0); HEMOGLOBIN 13.1 g/dL (12.0-15.5); HGB HCT DIFFERENCE -0.3; MEAN CORPUSCULAR HEMOGLOBIN 34.3 pg (27.0-33.4); MEAN CORPUSCULAR HGB CONC 33.2 g/dL (32.0-36.0); MEAN CORPUSCULAR VOLUME 103 fl (80-97); RED BLOOD COUNT 3.83 10^6/uL (3.72-5.28); RED CELL DISTRIBUTION WIDTH 15.7 % (11.5-14.0); WHITE BLOOD COUNT 7.4 10^3/uL (4.0-10.5)
[2017-06-22 06:37] LABS: ALANINE AMINOTRANSFERASE 28 U/L (9-52); ALBUMIN 3.3 g/dL (3.5-5.0); ALKALINE PHOSPHATASE 69 U/L (38-126); ANION GAP 13 (5-19); ASPARTATE AMINO TRANSFERASE 24 U/L (14-36); BILIRUBIN,DIRECT 0.6 mg/dL (0.0-0.4); BILIRUBIN,TOTAL 0.9 mg/dL (0.2-1.3); BLOOD UREA NITROGEN 70 mg/dL (7-20); CALCIUM 9.2 mg/dL (8.4-10.2); CARBON DIOXIDE 25 mmol/L (22-30); CHLORIDE 101 mmol/L (98-107); CREATININE RESULT 1.81 mg/dL (0.52-1.25); GLUCOSE 110 mg/dL (75-110); POTASSIUM 3.8 mmol/L (3.6-5.0); TOTAL PROTEIN 6.4 g/dL (6.3-8.2)
[2017-06-22] MEDS: DOCUSATE SODIUM 100 MG CAPSULE PO SCH (09:39)
[2017-06-22] MEDS: ASPIRIN 325 MG TABLET PO SCH (09:39)
[2017-06-22] MEDS: METOPROLOL SUCCINATE 25 MG TAB.SR.24H PO SCH (09:40)
[2017-06-22] MEDS: CLOPIDOGREL BISULFATE 75 MG TABLET PO SCH (09:40)
[2017-06-22] MEDS: LEVOTHYROXINE SODIUM 0.025 MG TABLET PO SCH (09:41)
[2017-06-22] MEDS: LEVOTHYROXINE SODIUM 0.1 MG TABLET PO SCH (09:41)
[2017-06-22] MEDS: BETAMETHASONE VALERATE 0.1% TP SCH (09:42)
--- NOTE | 2017-06-22 10:12 | PDOC PROGRESS REPORT ---
Subjective Progress Note for:: 06/22/17 Subjective:: Pt slept well, feels a little better, anxious to get into a chair today, no CP or SOB. NO VALENZUELA or confusion. Reason For Visit: HEART FAILURE, QUIQUE on CKD Physical Exam Vital Signs: Temp Pulse Resp BP Pulse Ox 96.6 F L 64 15 108/65 97 06/22/17 08:00 06/22/17 08:00 06/22/17 08:00 06/22/17 08:00 06/22/17 08:00 Intake & Output 06/21/17 06/22/17 06/23/17 06:59 06:59 06:59 Intake Total 1408 652 Output Total 1800 1150 285 Balance -392 -498 -285 Weight 93.5 kg 89.3 kg General appearance: PRESENT: no acute distress Head exam: PRESENT: atraumatic, normocephalic Mouth exam: PRESENT: moist Respiratory exam: PRESENT: rales - trace bibasilar rales. ABSENT: rhonchi, wheezes Cardiovascular exam: PRESENT: RRR, systolic murmur Pulses: PRESENT: normal radial pulses GI/Abdominal exam: PRESENT: normal bowel sounds, soft. ABSENT: distended, guarding, mass, organolmegaly, rebound, tenderness Extremities exam: ABSENT: +1 edema Neurological exam: PRESENT: alert, awake, oriented to person, oriented to place , oriented to time, oriented to situation, CN II-XII grossly intact Psychiatric exam: PRESENT: appropriate affect, normal mood. ABSENT: agitated, anxious Skin exam: PRESENT: dry, warm Results Laboratory Results: 06/22/17 05:50 06/22/17 05:50 06/22/17 06/22/17 05:50 05:50 WBC 7.4 RBC 3.83 Hgb 13.1 Hct 39.6 MCV 103 H MCH 34.3 H MCHC 33.2 RDW 15.7 H Plt Count 197 Sodium 139.0 Potassium 3.8 Chloride 101 Carbon Dioxide 25 Anion Gap 13 BUN 70 H Creatinine 1.81 H Est GFR ( Amer) 32 L Est GFR (Non-Af Amer) 27 L Glucose 110 Calcium 9.2 Total Bilirubin 0.9 AST 24 ALT 28 Alkaline Phosphatase 69 Total Protein 6.4 Albumin 3.3 L 06/18/17 06/18/17 06/18/17 01:22 01:22 06:40 Creatine Kinase 85 73 CK-MB (CK-2) 2.27 Troponin I 0.067 06/18/17 06/18/17 06/18/17 06:40 11:59 11:59 Creatine Kinase 73 CK-MB (CK-2) 1.97 2.20 Troponin I 0.073 0.074 06/19/17 06/19/17 06/20/17 04:19 10:30 07:30 Creatine Kinase CK-MB (CK-2) Troponin I 0.279 0.183 0.109 Impressions: Renal Ultrasound 06/20/17 00:00 IMPRESSION: No hydronephrosis. Chest X-Ray 06/21/17 18:57 IMPRESSION: New left IJ central venous catheter with tip overlying the RA-SVC junction.No pneumothorax. Similar interstitial markings. Assessment & Plan - Diagnosis (1) Acute on chronic congestive heart failure Qualifiers: Congestive heart failure type: systolic Qualified Code(s): I50.23 - Acute on chronic systolic (congestive) heart failure Is this a current diagnosis for this admission?: Yes Plan: Pt was transferred to ICU for pressor support. Had CVC placed and is not on levophed and lasix. Renal function improved, pt feeling better, net neg I and O over past [address] Clarke consulting and managing CHF plan. (2) Acute on chronic renal failure Qualifiers: Acute renal failure type: unspecified Chronic kidney disease stage: stage 3 (moderate) Qualified Code(s): N17.9 - Acute kidney failure, unspecified; N18.3 - Chronic kidney disease, stage 3 (moderate); N18.3 - Chronic kidney disease, stage 3 (moderate) Is this a current diagnosis for this admission?: Yes Plan: Creatinine imporved, see CHF plan. 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
--- NOTE | 2017-06-22 10:51 | PDOC PROGRESS REPORT ---
Subjective Progress Note for:: 06/22/17 Reason For Visit: She has been moved to the ICU to have begun on Levophed. She says she feels some better. No exertion and says dyspnea is better.Denies any chest pains. Physical Exam Vital Signs: Temp Pulse Resp BP Pulse Ox 97.1 F 69 23 H 129/72 H 98 06/22/17 10:00 06/22/17 10:00 06/22/17 10:00 06/22/17 10:00 06/22/17 10:00 Intake & Output 06/21/17 06/22/17 06/23/17 06:59 06:59 06:59 Intake Total 1408 652 340 Output Total 1800 1150 600 Balance -392 -498 -260 Weight 93.5 kg 89.3 kg General appearance: PRESENT: no acute distress Respiratory exam: PRESENT: clear to auscultation ignacio, crackles - scatterred. ABSENT: tachypnea, wheezes Cardiovascular exam: PRESENT: RRR, +S1, +S2 GI/Abdominal exam: PRESENT: normal bowel sounds, soft. ABSENT: ascites, tenderness Extremities exam: ABSENT: pedal edema Neurological exam: PRESENT: alert, awake, oriented to person, oriented to place Results Laboratory Results: 06/22/17 05:50 06/22/17 05:50 06/22/17 06/22/17 05:50 05:50 WBC 7.4 RBC 3.83 Hgb 13.1 Hct 39.6 MCV 103 H MCH 34.3 H MCHC 33.2 RDW 15.7 H Plt Count 197 Sodium 139.0 Potassium 3.8 Chloride 101 Carbon Dioxide 25 Anion Gap 13 BUN 70 H Creatinine 1.81 H Est GFR ( Amer) 32 L Est GFR (Non-Af Amer) 27 L Glucose 110 Calcium 9.2 Total Bilirubin 0.9 AST 24 ALT 28 Alkaline Phosphatase 69 Total Protein 6.4 Albumin 3.3 L 06/18/17 06/18/17 06/18/17 01:22 01:22 06:40 Creatine Kinase 85 73 CK-MB (CK-2) 2.27 Troponin I 0.067 06/18/17 06/18/17 06/18/17 06:40 11:59 11:59 Creatine Kinase 73 CK-MB (CK-2) 1.97 2.20 Troponin I 0.073 0.074 06/19/17 06/19/17 06/20/17 04:19 10:30 07:30 Creatine Kinase CK-MB (CK-2) Troponin I 0.279 0.183 0.109 Impressions: Renal Ultrasound 06/20/17 00:00 IMPRESSION: No hydronephrosis. Chest X-Ray 06/21/17 18:57 IMPRESSION: New left IJ central venous catheter with tip overlying the RA-SVC junction.No pneumothorax. Similar interstitial markings. Assessment & Plan - Diagnosis (1) Acute on chronic congestive heart failure Qualifiers: Congestive heart failure type: systolic Qualified Code(s): I50.23 - Acute on chronic systolic (congestive) heart failure Is this a current diagnosis for this admission?: Yes Plan: Improved with diuresis. Further management as per cardiology. (2) Acute on chronic renal failure Qualifiers: Acute renal failure type: unspecified Chronic kidney disease stage: stage 3 (moderate) Qualified Code(s): N17.9 - Acute kidney failure, unspecified; N18.3 - Chronic kidney disease, stage 3 (moderate); N18.3 - Chronic kidney disease, stage 3 (moderate) Is this a current diagnosis for this admission?: Yes Plan: Improving renal numbers with creatinine today at 1.8. Non oliguric. Renal US negative for obstructive lesions. No indications for SASH INSTALLER.lytes stable. (3) Hyperkalemia Is this a current diagnosis for this admission?: Yes Plan: Stable now. (4) Hypertension Qualifiers: Hypertension type: renovascular hypertension Qualified Code(s): I15.0 - Renovascular hypertension Is this a current diagnosis for this admission?: Yes Plan: controlled. (5) Diabetes Qualifiers: Diabetes mellitus type: type 2 Diabetes mellitus complication status: with kidney complications Diabetes mellitus complication detail: with chronic kidney disease Diabetes mellitus salvage determiner insulin use: without halfway use Chronic kidney disease stage: stage 3 (moderate) Qualified Code(s): E11.22 - Type 2 diabetes mellitus with diabetic chronic kidney disease; N18.3 - Chronic kidney disease, stage 3 (moderate); N18.3 - Chronic kidney disease, stage 3 (moderate) Is this a current diagnosis for this admission?: Yes
[2017-06-22] MEDS ORDERED: HYDRALAZINE HCL 10 MG TABLET PO ONE (11:00)
[2017-06-22] MEDS: HYDRALAZINE HCL 10 MG TABLET PO SCH ×2 (14:23→22:41)
[2017-06-22] MEDS: PHARMACY COMMUNICATION ORDER MC SCH (17:22)
[2017-06-22] MEDS: NORMAL SALINE 250 ML with FUROSEMIDE 250 MG IV PRN ×2 (17:30)
[2017-06-22] MEDS: ATORVASTATIN CALCIUM 80 MG TABLET PO SCH (22:41)
[2017-06-22] MEDS: GABAPENTIN 300 MG CAPSULE PO SCH (22:41)
[2017-06-22] MEDS: MONTELUKAST SODIUM 10 MG TABLET PO SCH (22:42)
[2017-06-23] MEDS: HYDRALAZINE HCL 10 MG TABLET PO SCH ×3 (05:51→21:31)
[2017-06-23] MEDS: HEPARIN SOD (PORCINE) 5,000 UNIT/ML 1 ML SYRINGE SUBCUT SCH ×3 (05:52→21:29)
[2017-06-23] MEDS: DEXTROSE 5%-WATER 250 ML with NOREPINEPHRINE BITARTRATE 4 MG IV PRN ×2 (05:52)
[2017-06-23 05:59] LABS: ABSOLUTE BASOPHILS # (AUTO) 0.1 10^3/uL (0.0-0.2); ABSOLUTE EOSINOPHILS # (AUTO) 0.4 10^3/uL (0.0-0.6); ABSOLUTE LYMPHOCYTES (AUTO) 0.7 10^3/uL (0.5-4.7); ABSOLUTE MONOCYTES (AUTO) 0.8 10^3/uL (0.1-1.4); ABSOLUTE NEUT (AUTO) 5.9 10^3/uL (1.7-8.2); BASOPHILS % (AUTO) 1.3 % (0-2); EOSINOPHILS % (AUTO) 4.9 % (0-6); HEMATOCRIT 40.8 % (36.0-47.0); HEMOGLOBIN 13.4 g/dL (12.0-15.5); HGB HCT DIFFERENCE -0.6; MEAN CORPUSCULAR HEMOGLOBIN 33.9 pg (27.0-33.4); MEAN CORPUSCULAR HGB CONC 32.9 g/dL (32.0-36.0); MEAN CORPUSCULAR VOLUME 103 fl (80-97); MONOCYTES % (AUTO) 9.8 % (3-13); RED BLOOD COUNT 3.96 10^6/uL (3.72-5.28); RED CELL DISTRIBUTION WIDTH 16.2 % (11.5-14.0); WHITE BLOOD COUNT 7.8 10^3/uL (4.0-10.5)
[2017-06-23 06:23] LABS: ANION GAP 9 (5-19); BLOOD UREA NITROGEN 70 mg/dL (7-20); CALCIUM 9.2 mg/dL (8.4-10.2); CARBON DIOXIDE 30 mmol/L (22-30); CHLORIDE 100 mmol/L (98-107); CREATININE RESULT 1.58 mg/dL (0.52-1.25); GLUCOSE 106 mg/dL (75-110); POTASSIUM 3.7 mmol/L (3.6-5.0); SODIUM 139.2 mmol/L (137-145)
[2017-06-23] MEDS: BETAMETHASONE VALERATE 0.1% TP SCH (10:14)
[2017-06-23] MEDS: LEVOTHYROXINE SODIUM 0.1 MG TABLET PO SCH (10:15)
[2017-06-23] MEDS: ASPIRIN 325 MG TABLET PO SCH (10:15)
[2017-06-23] MEDS: CLOPIDOGREL BISULFATE 75 MG TABLET PO SCH (10:15)
[2017-06-23] MEDS: METOPROLOL SUCCINATE 25 MG TAB.SR.24H PO SCH (10:15)
[2017-06-23] MEDS: POLYETHYLENE GLYCOL 3350 POWDER 17 GM/1 PACKET PO SCH (10:15)
[2017-06-23] MEDS: LEVOTHYROXINE SODIUM 0.025 MG TABLET PO SCH (10:15)
[2017-06-23] MEDS: DOCUSATE SODIUM 100 MG CAPSULE PO SCH (10:16)
[2017-06-23] MEDS: NITROGLYCERIN 2% OINTMENT 1 GM PACKET TP SCH ×2 (14:28→21:31)
--- NOTE | 2017-06-23 15:17 | PDOC PROGRESS REPORT ---
<LELA MILLER - Last Filed: 06/23/17 15:05> Subjective Progress Note for:: 06/23/17 Subjective:: Patient is currently doing well, she says that her shortness of breath is currently just intermittent. Currently she is on 3mcg of levo with a bp in the 120s systolic. She is also receiving 3mcg of IV lasix drip and produced 2.6L of fluid yesterday. Reason For Visit: HEART FAILURE Physical Exam Vital Signs: Temp Pulse Resp BP Pulse Ox 96.2 F L 71 20 117/73 98 06/23/17 14:00 06/23/17 14:00 06/23/17 14:00 06/23/17 14:00 06/23/17 14:00 Intake & Output 06/22/17 06/23/17 06/24/17 06:59 06:59 06:59 Intake Total 652 618 468 Output Total 1150 2615 855 Balance -498 -1997 -387 Weight 89.3 kg 90.9 kg General appearance: PRESENT: no acute distress, well-developed, well-nourished Eye exam: PRESENT: conjunctiva pink. ABSENT: scleral icterus Mouth exam: PRESENT: moist, tongue midline Neck exam: PRESENT: full ROM. ABSENT: JVD, tracheal deviation Respiratory exam: PRESENT: crackles. ABSENT: accessory muscle use, clear to auscultation ignacio, wheezes Cardiovascular exam: PRESENT: RRR, +S1, +S2 GI/Abdominal exam: PRESENT: normal bowel sounds, soft. ABSENT: ascites, tenderness Extremities exam: PRESENT: pedal edema - -trace+. ABSENT: joint swelling, tenderness Musculoskeletal exam: ABSENT: deformity, normal inspection, tenderness Neurological exam: PRESENT: alert, awake, oriented to person, oriented to place , oriented to time, oriented to situation Psychiatric exam: PRESENT: appropriate affect, normal mood Skin exam: PRESENT: dry, intact, warm Results Laboratory Results: 06/23/17 05:40 06/23/17 05:40 06/23/17 06/23/17 05:40 05:40 WBC 7.8 RBC 3.96 Hgb 13.4 Hct 40.8 MCV 103 H MCH 33.9 H MCHC 32.9 RDW 16.2 H Plt Count 204 Seg Neutrophils % 75.0 Lymphocytes % 9.0 L Monocytes % 9.8 Eosinophils % 4.9 Basophils % 1.3 Absolute Neutrophils 5.9 Absolute Lymphocytes 0.7 Absolute Monocytes 0.8 Absolute Eosinophils 0.4 Absolute Basophils 0.1 Sodium 139.2 Potassium 3.7 Chloride 100 Carbon Dioxide 30 Anion Gap 9 BUN 70 H Creatinine 1.58 H Est GFR ( Amer) 38 L Est GFR (Non-Af Amer) 31 L Glucose 106 Calcium 9.2 06/18/17 06/18/17 06/18/17 01:22 01:22 06:40 Creatine Kinase 85 73 CK-MB (CK-2) 2.27 Troponin I 0.067 06/18/17 06/18/17 06/18/17 06:40 11:59 11:59 Creatine Kinase 73 CK-MB (CK-2) 1.97 2.20 Troponin I 0.073 0.074 06/19/17 06/19/17 06/20/17 04:19 10:30 07:30 Creatine Kinase CK-MB (CK-2) Troponin I 0.279 0.183 0.109 Impressions: Renal Ultrasound 06/20/17 00:00 IMPRESSION: No hydronephrosis. Chest X-Ray 06/21/17 18:57 IMPRESSION: New left IJ central venous catheter with tip overlying the RA-SVC junction.No pneumothorax. Similar interstitial markings. Assessment & Plan - Diagnosis (1) Acute on chronic congestive heart failure QualifierTitle: Congestive heart failure type: systolic Qualified Code(s) : I50.23 - Acute on chronic systolic (congestive) heart failure Is this a current diagnosis for this admission?: Yes Plan: currently being diuresised, managed by cardiology (2) Acute on chronic renal failure QualifierTitle: Acute renal failure type: unspecified Chronic kidney disease stage: stage 3 (moderate) Qualified Code(s): N17.9 - Acute kidney failure, unspecified; N18.3 - Chronic kidney disease, stage 3 (moderate); N18.3 - Chronic kidney disease, stage 3 (moderate) Is this a current diagnosis for this admission?: Yes Plan: currently improving, looks to be less fluid overloaded (3) Hyperkalemia Is this a current diagnosis for this admission?: Yes Plan: currently stable (4) Diabetes QualifierTitle: Diabetes mellitus type: type 2 Diabetes mellitus complication status: with kidney complications Diabetes mellitus complication detail: with chronic kidney disease Diabetes mellitus long-term insulin use: without ferry terminal supervisor use Chronic kidney disease stage: stage 3 (moderate) Qualified Code(s): E11.22 - Type 2 diabetes mellitus with diabetic chronic kidney disease; N18.3 - Chronic kidney disease, stage 3 (moderate); N18.3 - Chronic kidney disease, stage 3 (moderate) Is this a current diagnosis for this admission?: Yes Plan: controlled (5) Hypertension QualifierTitle: Hypertension type: renovascular hypertension Qualified Code(s): I15.0 - Renovascular hypertension Is this a current diagnosis for this admission?: Yes Plan: stable, actually became hypotensive and is levo (6) Metabolic acidosis Is this a current diagnosis for this admission?: Yes Plan: currently stable <BRITTANY LEMUS - Last Filed: 06/23/17 18:37> Subjective Reason For Visit: HEART FAILURE Physical Exam Vital Signs: Temp Pulse Resp BP Pulse Ox 97.6 F 75 28 H 144/85 H 100 06/23/17 18:00 06/23/17 18:00 06/23/17 18:00 06/23/17 18:00 06/23/17 18:00 Intake & Output 06/22/17 06/23/17 06/24/17 06:59 06:59 06:59 Intake Total 652 618 468 Output Total 3198 [address] [facility] -498 -1997 -1047 Weight 89.3 kg 90.9 kg Results Laboratory Results: 06/23/17 05:40 06/23/17 05:40 06/23/17 06/23/17 05:40 05:40 WBC 7.8 RBC 3.96 Hgb 13.4 Hct 40.8 MCV 103 H MCH 33.9 H MCHC 32.9 RDW 16.2 H Plt Count 204 Seg Neutrophils % 75.0 Lymphocytes % 9.0 L Monocytes % 9.8 Eosinophils % 4.9 Basophils % 1.3 Absolute Neutrophils 5.9 Absolute Lymphocytes 0.7 Absolute Monocytes 0.8 Absolute Eosinophils 0.4 Absolute Basophils 0.1 Sodium 139.2 Potassium 3.7 Chloride 100 Carbon Dioxide 30 Anion Gap 9 BUN 70 H Creatinine 1.58 H Est GFR ( Amer) 38 L Est GFR (Non-Af Amer) 31 L Glucose 106 Calcium 9.2 06/21/17 22:15 Sputum Gram Stain - Final 06/21/17 22:15 Sputum Sputum Culture - Final NORMAL ALEX 06/18/17 06/18/17 06/18/17 01:22 01:22 06:40 Creatine Kinase 85 73 CK-MB (CK-2) 2.27 Troponin I 0.067 06/18/17 06/18/17 06/18/17 06:40 11:59 11:59 Creatine Kinase 73 CK-MB (CK-2) 1.97 2.20 Troponin I 0.073 0.074 06/19/17 06/19/17 06/20/17 04:19 10:30 07:30 Creatine Kinase CK-MB (CK-2) Troponin I 0.279 0.183 0.109 Impressions: Renal Ultrasound 06/20/17 00:00 IMPRESSION: No hydronephrosis. Chest X-Ray 06/21/17 18:57 IMPRESSION: New left IJ central venous catheter with tip overlying the RA-SVC junction.No pneumothorax. Similar interstitial markings. Assessment & Plan - Diagnosis (2) Acute on chronic congestive heart failure Qualifiers: Congestive heart failure type: systolic Qualified Code(s): I50.23 - Acute on chronic systolic (congestive) heart failure Is this a current diagnosis for this admission?: Yes (3) Acute on chronic renal failure Qualifiers: Acute renal failure type: unspecified Chronic kidney disease stage: stage 3 (moderate) Qualified Code(s): N17.9 - Acute kidney failure, unspecified; N18.3 - Chronic kidney disease, stage 3 (moderate); N18.3 - Chronic kidney disease, stage 3 (moderate) Is this a current diagnosis for this admission?: Yes
[2017-06-23] MEDS: NORMAL SALINE 250 ML with FUROSEMIDE 250 MG IV PRN ×2 (17:32)
[2017-06-23] MEDS: PHARMACY COMMUNICATION ORDER MC SCH (17:32)
--- NOTE | 2017-06-23 18:56 | PDOC PROGRESS REPORT ---
Subjective Progress Note for:: 06/23/17 Subjective:: Refers that her breathing is better ROS All organ systems evaluated and negative except as in subjective All all significant laboratories and diagnostics have been reviewed Reason For Visit: HEART FAILURE Physical Exam Vital Signs: Temp Pulse Resp BP Pulse Ox 97.6 F 67 17 114/72 96 06/23/17 07:49 06/23/17 07:49 06/23/17 07:49 06/23/17 07:49 06/23/17 07:49 Intake & Output 06/22/17 06/23/17 06/24/17 06:59 06:59 06:59 Intake Total 652 618 Output Total 1150 5675 270 Balance -49 Weight 89.3 kg 90.9 kg General appearance: PRESENT: no acute distress, cooperative, obese Head exam: PRESENT: atraumatic, normocephalic Eye exam: PRESENT: EOMI, PERRLA Mouth exam: PRESENT: moist, neck supple Neck exam: PRESENT: full ROM. ABSENT: JVD, tenderness Respiratory exam: PRESENT: clear to auscultation ignacio. ABSENT: crackles, rhonchi Cardiovascular exam: PRESENT: RRR. ABSENT: diastolic murmur, systolic murmur GI/Abdominal exam: PRESENT: normal bowel sounds, soft. ABSENT: guarding, tenderness Extremities exam: PRESENT: joint swelling. ABSENT: pedal edema Musculoskeletal exam: PRESENT: full ROM Neurological exam: PRESENT: alert, oriented to person, oriented to place, oriented to time Results Laboratory Results: 06/23/17 05:40 06/23/17 05:40 06/23/17 06/23/17 05:40 05:40 WBC 7.8 RBC 3.96 Hgb 13.4 Hct 40.8 MCV 103 H MCH 33.9 H MCHC 32.9 RDW 16.2 H Plt Count 204 Seg Neutrophils % 75.0 Lymphocytes % 9.0 L Monocytes % 9.8 Eosinophils % 4.9 Basophils % 1.3 Absolute Neutrophils 5.9 Absolute Lymphocytes 0.7 Absolute Monocytes 0.8 Absolute Eosinophils 0.4 Absolute Basophils 0.1 Sodium 139.2 Potassium 3.7 Chloride 100 Carbon Dioxide 30 Anion Gap 9 BUN 70 H Creatinine 1.58 H Est GFR ( Amer) 38 L Est GFR (Non-Af Amer) 31 L Glucose 106 Calcium 9.2 1106/18/17 06/18/17 01:22 01:22 06:40 Creatine Kinase 85 73 CK-MB (CK-2) 2.27 Troponin I 0.067 06/18/17 06/18/17 06/18/17 06:40 11:59 11:59 Creatine Kinase 73 CK-MB (CK-2) 1.97 2.20 Troponin I 0.073 0.074 06/19/17 06/19/17 06/20/17 04:19 10:30 07:30 Creatine Kinase CK-MB (CK-2) Troponin I 0.279 0.183 0.109 Impressions: Renal Ultrasound 06/20/17 00:00 IMPRESSION: No hydronephrosis. Chest X-Ray 06/21/17 18:57 IMPRESSION: New left IJ central venous catheter with tip overlying the RA-SVC junction.No pneumothorax. Similar interstitial markings. Assessment & Plan - Diagnosis (1) Mitral regurgitation Qualifiers: Cardiac valve disease etiology: etiology unspecified Qualified Code(s): I34.0 - Nonrheumatic mitral (valve) insufficiency Is this a current diagnosis for this admission?: Yes Plan: Likely culprit of presentation (2) Acute on chronic congestive heart failure Qualifiers: Congestive heart failure type: systolic Qualified Code(s): I50.23 - Acute on chronic systolic (congestive) heart failure Is this a current diagnosis for this admission?: Yes Plan: Managed per cardiology. Levophed increased (3) Acute on chronic renal failure Qualifiers: Acute renal failure type: unspecified Chronic kidney disease stage: stage 3 (moderate) Qualified Code(s): N17.9 - Acute kidney failure, unspecified; N18.3 - Chronic kidney disease, stage 3 (moderate); N18.3 - Chronic kidney disease, stage 3 (moderate) Is this a current diagnosis for this admission?: Yes Plan: Perfusion improving. (4) Anemia in chronic kidney disease Is this a current diagnosis for this admission?: Yes Plan: Stable (5) Pulmonary hypertension Plan: Due to valvular disease - Time Time Spent with patient: 15-24 minutes Medications reviewed and adjusted accordingly: Yes Anticipated discharge: Home Within: Other - possibly in one week - Inpatient Certification Based on my medical assessment, after consideration of the patient's comorbidities, presenting symptoms, or acuity I expect that the services needed warrant INPATIENT care.: Yes I certify that my determination is in accordance with my understanding of Medicare's requirements for reasonable and necessary INPATIENT services [42 CFR 412.3e].: Yes Medical Necessity: Other - inotropic support, iv diuretic
[2017-06-23] MEDS: ATORVASTATIN CALCIUM 80 MG TABLET PO SCH (21:30)
[2017-06-23] MEDS: MONTELUKAST SODIUM 10 MG TABLET PO SCH (21:30)
[2017-06-23] MEDS: GABAPENTIN 300 MG CAPSULE PO SCH (21:31)
--- NOTE | 2017-06-24 01:58 | PROGRESS NOTE E ---
Progress Note NAME: RANDELL STERLING : 1935 AGE: 82Y DATE: 06/23/2017 ROOM: 608 SUBJECTIVE: The patient feels much better but still has some signs of failure and still has mild JVD. She denies any chest pain or discomfort. There is no recurrence of atrial fibrillation. There is no ventricular arrhythmia seen. The patient still has some orthopnea but no PND. Her leg edema is much improved. There are no TIA or CVA symptoms. OBJECTIVE: On examination, the patient is afebrile with a temperature of 96.2 degrees Fahrenheit. Pulse is 71 beats per minute. Blood pressure is 117/73. Respiration is 20/min. O2 sat is 98% on 2 liters nasal cannula. Head is atraumatic, normocephalic. Eyes: Pupils are equal, round, regular, reactive to light and accommodation. Extraocular movements normal. There is no conjunctival pallor, no scleral icterus. ENT is negative. Neck is supple. There is mild JVD present. Carotids are equal. There is no bruit. There is no lymphadenopathy. There is no goiter. Lungs show still a few bibasilar rales of CHF. There is a murmur of mitral regurgitation and tricuspid regurgitation heard. There is no rub. There are no gallops. Abdomen is soft, obese, nontender. There is no hepatosplenomegaly. Pulses are well heard. Extremities: Femorals are diminished. Leg pulses are diminished. There is trace pedal edema bilaterally. There is no DVT or cellulitis. There is no calf tenderness. There is no cyanosis or clubbing. 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 Psychiatric: The patient's judgement and insight are intact, and affect is normal. The patient's 24-hour intake is 618 mL, output is 2615. The patient's laboratory data shows a white count of 5800, hemoglobin is 13.4, hematocrit is 14.8, and the platelet count is 204,000. The patient's sodium is 139.2, potassium is 3.7, chloride is 100, CO2 is 30. The patient's BUN is 70, creatinine is 1.58, her GFR is improved at 31 mL, which is now chronic kidney disease stage III, which is *------* from the stage IV yesterday. A glucose 162. Her calcium is 9.2. ASSESSMENT: 1. ACUTE ON CHRONIC CONGESTIVE HEART FAILURE. THE PATIENT'S FAILURE IS MUCH IMPROVED, BUT STILL HAS SOME WAYS TO GO. The patient is on Levophed 2 mcg/min and also on Lasix at 4 mg/min. She is also on hydralazine 10 mg p.o. q. 8 hours and tolerating it. 2. ACUTE ON CHRONIC RENAL FAILURE. AT PRESENT, THE PATIENT HAS *------* TO CHRONIC KIDNEY DISEASE STAGE III FROM A IV. 3. HYPERTENSION. BLOOD PRESSURE WELL CONTROLLED. 4. ELEVATED TROPONIN-I. THIS IS TRENDING DOWN. 5. HISTORY OF CORONARY ARTERY DISEASE. NO ANGINAL SYMPTOMS. 6. DIET-CONTROLLED DIABETES MELLITUS. 7. MODERATE TO SEVERE MITRAL REGURGITATION. 8. SEVERE TRICUSPID REGURGITATION. 9. SEVERE PULMONARY HYPERTENSION, PER RECENT ECHO. 10. PAROXYSMAL ATRIAL FIBRILLATION WITH NO RECURRENCE. 11. LEFT BUNDLE BRANCH BLOCK PATTERN. 12. CARDIOMYOPATHY WITH SEVERELY REDUCED LV EJECTION FRACTION. 13. HYPOTHYROIDISM. RECOMMENDATIONS: Would increase the patient's Levophed treatment to 3 mcg/min and increase the patient's Lasix to 5 mg/hour from 4 mg/hour. Also, will add nitroglycerin patch 0.5 grams q. 6 hours. Continue hydralazine. Continue other current medications. Will recheck the patient's chest x-ray in the morning. Will follow with you. Note, this is in the critical care unit. The patient was seen from 2:00 p.m. to 2:45 p.m., hence a total of 45 minutes with more than 50% of the time spent on direct patient care. Medications have been reviewed and increased. Note, decision making was of a highly complex nature. Discussed with the patient and other physicians involved in the case. Will follow with you. Will check a chest x-ray and SMA-7 in the a.m. DICTATING PHYSICIAN: CORRY PIMENTEL M.D. [id number] PHY#: [id number] ID: [id number] JOB#: [id number] ACCT: [id number] cc: >
[2017-06-24] MEDS: NITROGLYCERIN 2% OINTMENT 1 GM PACKET TP SCH ×2 (02:12→09:36)
[2017-06-24] MEDS: HEPARIN SOD (PORCINE) 5,000 UNIT/ML 1 ML SYRINGE SUBCUT SCH ×3 (05:25→21:29)
[2017-06-24] MEDS: HYDRALAZINE HCL 10 MG TABLET PO SCH ×3 (05:27→21:30)
[2017-06-24 05:57] LABS: ANION GAP 11 (5-19); BLOOD UREA NITROGEN 61 mg/dL (7-20); CALCIUM 9.1 mg/dL (8.4-10.2); CARBON DIOXIDE 31 mmol/L (22-30); CHLORIDE 98 mmol/L (98-107); CREATININE RESULT 1.23 mg/dL (0.52-1.25); GLUCOSE 108 mg/dL (75-110); MAGNESIUM 1.6 mg/dL (1.6-2.3); POTASSIUM 3.2 mmol/L (3.6-5.0); SODIUM 139.7 mmol/L (137-145)
--- NOTE | 2017-06-24 07:17 | RADIOLOGY REPORT (SQ) ---
EXAM DESCRIPTION: CHEST SINGLE VIEW COMPLETED DATE/TIME: 06/24/2017 7:01 am REASON FOR STUDY: chf COMPARISON: Chest x-ray 06/21/2017. EXAM PARAMETERS: NUMBER OF VIEWS: One view. TECHNIQUE: Single frontal radiographic view of the chest acquired. RADIATION DOSE: NA LIMITATIONS: Patient positioning. FINDINGS: LUNGS AND PLEURA: The patient is rotated. Mildly prominent interstitial markings, suggest [place] of interstitial edema. No obvious focal consolidation, sizable pleural effusion or pneumothorax. MEDIASTINUM AND HILAR STRUCTURES: Stable, allowing for patient's rotation. HEART AND VASCULAR STRUCTURES: The heart remains enlarged. BONES: Degenerative changes in the spine. HARDWARE: Left IJ central line with the tip overlying the region of the right atrium. IMPRESSION: Cardiomegaly. Mild interstitial edema. TECHNICAL DOCUMENTATION: JOB ID: [id number] [employer]- All Rights Reserved
[2017-06-24] MEDS: LEVOTHYROXINE SODIUM 0.025 MG TABLET PO SCH (09:35)
[2017-06-24] MEDS: METOPROLOL SUCCINATE 25 MG TAB.SR.24H PO SCH (09:35)
[2017-06-24] MEDS: CLOPIDOGREL BISULFATE 75 MG TABLET PO SCH (09:35)
[2017-06-24] MEDS: LEVOTHYROXINE SODIUM 0.1 MG TABLET PO SCH (09:36)
[2017-06-24] MEDS: DOCUSATE SODIUM 100 MG CAPSULE PO SCH (09:36)
[2017-06-24] MEDS: BETAMETHASONE VALERATE 0.1% TP SCH (09:37)
[2017-06-24] MEDS: POLYETHYLENE GLYCOL 3350 POWDER 17 GM/1 PACKET PO SCH (09:37)
[2017-06-24] MEDS: DEXTROSE 5%-WATER 250 ML with NOREPINEPHRINE BITARTRATE 4 MG IV PRN ×2 (09:38)
[2017-06-24] MEDS ORDERED: POTASSIUM CHLORIDE 10 MEQ TABLET.SA PO ONE ×3 (10:00→11:00)
[2017-06-24] MEDS ORDERED: DEXTROSE 5%-WATER 250 ML with NOREPINEPHRINE BITARTRATE 4 MG IV PRN ×2 (10:26)
[2017-06-24] MEDS: NITROGLYCERIN 10 MG (0.4 MG/HR) PATCH.TD24 TD SCH (11:58)
[2017-06-24] MEDS: LISINOPRIL 5 MG TABLET PO SCH (11:58)
[2017-06-24] MEDS: PHARMACY COMMUNICATION ORDER MC SCH (17:43)
[2017-06-24] MEDS: NORMAL SALINE 250 ML with FUROSEMIDE 250 MG IV PRN ×2 (18:17)
[2017-06-24] MEDS: LEVALBUTEROL HCL NEB 1.25 MG/3 ML AMPUL NEB PRN (20:11)
[2017-06-24] MEDS: ATORVASTATIN CALCIUM 80 MG TABLET PO SCH (21:30)
[2017-06-24] MEDS: GABAPENTIN 300 MG CAPSULE PO SCH (21:31)
[2017-06-24] MEDS: MONTELUKAST SODIUM 10 MG TABLET PO SCH (21:31)
--- NOTE | 2017-06-24 22:43 | PROGRESS NOTE E ---
Progress Note NAME: RANDELL STERLING : 1935 AGE: 82Y DATE: 06/24/2017 ROOM: 608 SUBJECTIVE: The patient is feeling much better but still has some orthopnea. She is not short of breath. She has diuresed well and GFR has improved to 42 mL from 31. She denies any chest pain or discomfort. There is no recurrence of atrial fibrillation. There are no TIA or CVA symptoms. There is no ventricular arrhythmia seen on the monitor. OBJECTIVE: GENERAL: On examination the patient is moderately obese, at present in no acute distress. VITAL SIGNS: She is afebrile with a temperature of 99.5 degrees Fahrenheit, pulse is 71 beats per minute, blood pressure is 133/74, respirations are 23 per minute, O2 saturations are 99% on an FiO2 of 2L nasal cannula. HEENT: Head is atraumatic, normocephalic. Eyes: Pupils are equal, round and regular, reactive to light and accommodation. Extraocular movements are normal. There is no conjunctival pallor. There is no scleral icterus. ENT is negative. NECK: Supple. There is no JVD. There is no lymphadenopathy. There is no goiter. Carotids are equal. There is no bruit. Trachea is central. LUNGS: At present appear to be clear to auscultation and percussion. There are no rales of CHF. HEART: There is a murmur of mitral regurgitation and tricuspid regurgitation present. There is no rub. ABDOMEN: Soft, obese, nontender. There is no hepatosplenomegaly. There are no tender areas or masses. Bowel sounds are well heard. EXTREMITIES: Femorals are diminished. There are no femoral bruits Leg pulses are diminished. There is no pedal edema. There is no cyanosis or clubbing. There is no DVT or cellulitis. There is no calf tenderness. CENTRAL NERVOUS SYSTEM: The patient is conscious, awake, alert and oriented x3 with no focal deficits. PSYCHIATRIC: The patient's judgment and insight are intact. Her affect is normal. INTAKE/OUTPUT: The patient's 24 hour intake is 816 mL, output is 3240 mL. IMAGING STUDIES: Her chest x-ray shows some mild interstitial prominence and cardiomegaly. LABORATORY DATA: Shows a white count of 7800, hemoglobin is 13.4, hematocrit is 40.8, and a platelet count is 204,000. The patient's sodium is 130.7, potassium is 3.2, chloride is 98, CO2 is 31. The patient's BUN is 61, creatinine is 1.33 and GFR has come up to 42 mL which is chronic kidney disease stage 3A. Glucose is 108, calcium is 9.1, magnesium is 1.6. IMPRESSION AND RECOMMENDATIONS: 1. ACUTE ON CHRONIC CONGESTIVE HEART FAILURE, MUCH IMPROVED. Note that the patient's Levophed will be decreased to 2 mcg/min and also we will decrease the patient's Lasix to 3 mg/hr. We will change her Nitropaste to transdermal nitro. We will start the patient on a small dose of lisinopril and increase as tolerated. Continue hydralazine. 2. ACUTE ON CHRONIC RENAL FAILURE. At present GFR has improved to 42 mL. 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 3. HYPERTENSION. Blood pressure well controlled. 4. ELEVATED TROPONIN I. This has trended down. This is secondary to heart failure. No evidence of non-ST elevation GA. 5. HISTORY OF CORONARY ARTERY DISEASE. No anginal symptoms. 6. DIET CONTROLLED DIABETES MELLITUS. 7. MODERATE TO SEVERE MITRAL REGURGITATION. 8. SEVERE TRICUSPID REGURGITATION. 9. SEVERE PULMONARY HYPERTENSION. We will recheck the patient's limited echo on Monday to see if the pulmonary hypertension has come down and to see if the patient's MR and TR have reduced. 10. PAROXYSMAL ATRIAL FIBRILLATION WITH NO RECURRENCE. 11. LEFT BUNDLE BRANCH BLOCK PATTERN. 12. CARDIOMYOPATHY WITH SEVERELY REDUCED LV EJECTION FRACTION. 13. HYPOTHYROIDISM. We will see if the patient should improve then we will discuss the option of biventricular AICD. We will discuss with her EP cardiology at [facility]. Discussed this with the patient and family including . Andreina Sterling, who is a nurse. TIME SPENT: Note 40 minutes of critical care done, medications reviewed and adjusted. More than 50% of the time spent on direct patient care. Also discussions of the plans of weaning the patient off pressors and Lasix and putting her on p.o. Lasix have been discussed and also the possibility of a biventricular AICD if the EP rat trapper still thinks that it may help the patient. Note medical decision making was highly complex. Note that this is a critical care note. We will follow. Even though the patient is a DNR these steps might improve the quality of the patient's life. DICTATING PHYSICIAN: CORRY PIMENTEL M.D. [id number] ELVIS#: [id number] ID: [id number] JOB#: [id number] ACCT: [id number] cc: >
[2017-06-25] MEDS: LISINOPRIL 5 MG TABLET PO SCH ×2 (00:27→23:08)
--- NOTE | 2017-06-25 03:59 | PDOC PROGRESS REPORT ---
Subjective Progress Note for:: 06/24/17 Subjective:: Refers that her breathing is better ROS All organ systems evaluated and negative except as in subjective All all significant laboratories and diagnostics have been reviewed Reason For Visit: HEART FAILURE Physical Exam Vital Signs: Temp Pulse Resp BP Pulse Ox 97.2 F 74 28 H 144/85 H 100 06/24/17 01:55 06/23/17 19:28 06/23/17 18:00 06/23/17 18:00 06/23/17 18:00 Intake & Output 06/22/17 06/23/17 06/24/17 06:59 06:59 06:59 Intake Total 652 618 631 Output Total 1155 7162 1080 [facility] -[phone] Weight 89.3 kg 90.9 kg General appearance: PRESENT: no acute distress, cooperative, obese Head exam: PRESENT: atraumatic, normocephalic Eye exam: PRESENT: EOMI, PERRLA Mouth exam: PRESENT: moist, neck supple Neck exam: PRESENT: full ROM. ABSENT: JVD Respiratory exam: PRESENT: clear to auscultation ignacio Cardiovascular exam: PRESENT: RRR. ABSENT: systolic murmur GI/Abdominal exam: PRESENT: normal bowel sounds, soft. ABSENT: tenderness Extremities exam: PRESENT: pedal edema Musculoskeletal exam: PRESENT: full ROM Neurological exam: PRESENT: alert, oriented to person, oriented to place, oriented to time Psychiatric exam: PRESENT: appropriate affect, normal mood Results Laboratory Results: 06/23/17 05:40 06/23/17 05:40 06/23/17 06/23/17 05:40 05:40 WBC 7.8 RBC 3.96 Hgb 13.4 Hct 40.8 MCV 103 H MCH 33.9 H MCHC 32.9 RDW 16.2 H Plt Count 204 Seg Neutrophils % 75.0 Lymphocytes % 9.0 L Monocytes % 9.8 Eosinophils % 4.9 Basophils % 1.3 Absolute Neutrophils 5.9 Absolute Lymphocytes 0.7 Absolute Monocytes 0.8 Absolute Eosinophils 0.4 Absolute Basophils 0.1 Sodium 139.2 Potassium 3.7 Chloride 100 Carbon Dioxide 30 Anion Gap 9 BUN 70 H Creatinine 1.58 H Est GFR ( Amer) 38 L Est GFR (Non-Af Amer) 31 L Glucose 106 Calcium 9.2 06/21/17 22:15 Sputum Gram Stain - Final 06/21/17 22:15 Sputum Sputum Culture - Final NORMAL ALEX 06/18/17 06/18/17 06/18/17 01:22 01:22 06:40 Creatine Kinase 85 73 CK-MB (CK-2) 2.27 Troponin I 0.067 06/18/17 06/18/17 06/18/17 06:40 11:59 11:59 Creatine Kinase 73 CK-MB (CK-2) 1.97 2.20 Troponin I 0.073 0.074 06/19/17 06/19/17 06/20/17 04:19 10:30 07:30 Creatine Kinase CK-MB (CK-2) Troponin I 0.279 0.183 0.109 Impressions: Renal Ultrasound 06/20/17 00:00 IMPRESSION: No hydronephrosis. Chest X-Ray 06/21/17 18:57 IMPRESSION: New left IJ central venous catheter with tip overlying the RA-SVC junction.No pneumothorax. Similar interstitial markings. Assessment & Plan - Diagnosis (1) Mitral regurgitation Qualifiers: Cardiac valve disease etiology: etiology unspecified Qualified Code(s): I34.0 - Nonrheumatic mitral (valve) insufficiency Is this a current diagnosis for this admission?: Yes Plan: Likely culprit of presentation (2) Acute on chronic congestive heart failure Qualifiers: Congestive heart failure type: systolic Qualified Code(s): I50.23 - Acute on chronic systolic (congestive) heart failure Is this a current diagnosis for this admission?: Yes Plan: Managed per cardiology. (3) Acute on chronic renal failure Qualifiers: Acute renal failure type: unspecified Chronic kidney disease stage: stage 3 (moderate) Qualified Code(s): N17.9 - Acute kidney failure, unspecified; N18.3 - Chronic kidney disease, stage 3 (moderate); N18.3 - Chronic kidney disease, stage 3 (moderate) Is this a current diagnosis for this admission?: Yes Plan: Perfusion improving. Patient appears to be cardiorenal (4) Anemia in chronic kidney disease Is this a current diagnosis for this admission?: Yes Plan: Stable (5) Pulmonary hypertension Is this a current diagnosis for this admission?: Yes Plan: Due to valvular disease - Time Time Spent with patient: 15-24 minutes Medications reviewed and adjusted accordingly: Yes Anticipated discharge: Home with Homehealth Within: Other - possibly in 4-5 days - Inpatient Certification Based on my medical assessment, after consideration of the patient's comorbidities, presenting symptoms, or acuity I expect that the services needed warrant INPATIENT care.: Yes I certify that my determination is in accordance with my understanding of Medicare's requirements for reasonable and necessary INPATIENT services [42 CFR 412.3e].: Yes Medical Necessity: Significant Comorbidiites Make Outpatient Treatment Too Risky , Other - IV lasix
[2017-06-25] MEDS: HEPARIN SOD (PORCINE) 5,000 UNIT/ML 1 ML SYRINGE SUBCUT SCH ×3 (05:09→22:53)
[2017-06-25] MEDS: HYDRALAZINE HCL 10 MG TABLET PO SCH ×3 (05:09→23:08)
[2017-06-25 05:26] LABS: ABSOLUTE BASOPHILS # (AUTO) 0.1 10^3/uL (0.0-0.2); ABSOLUTE EOSINOPHILS # (AUTO) 0.4 10^3/uL (0.0-0.6); ABSOLUTE LYMPHOCYTES (AUTO) 0.7 10^3/uL (0.5-4.7); ABSOLUTE MONOCYTES (AUTO) 0.8 10^3/uL (0.1-1.4); ABSOLUTE NEUT (AUTO) 5.7 10^3/uL (1.7-8.2); BASOPHILS % (AUTO) 1.3 % (0-2); EOSINOPHILS % (AUTO) 5.1 % (0-6); HEMATOCRIT 41.1 % (36.0-47.0); HEMOGLOBIN 13.5 g/dL (12.0-15.5); HGB HCT DIFFERENCE -0.6; LYMPHOCYTES % (AUTO) 8.7 % (13-45); MEAN CORPUSCULAR HEMOGLOBIN 33.5 pg (27.0-33.4); MEAN CORPUSCULAR HGB CONC 32.9 g/dL (32.0-36.0); MEAN CORPUSCULAR VOLUME 102 fl (80-97); MONOCYTES % (AUTO) 10.3 % (3-13); RED BLOOD COUNT 4.04 10^6/uL (3.72-5.28); SEGMENTED NEUTROPHILS % (AUTO) 74.6 % (42-78); WHITE BLOOD COUNT 7.7 10^3/uL (4.0-10.5)
[2017-06-25 05:44] LABS: ANION GAP 8 (5-19); BLOOD UREA NITROGEN 51 mg/dL (7-20); CALCIUM 9.4 mg/dL (8.4-10.2); CARBON DIOXIDE 35 mmol/L (22-30); CHLORIDE 96 mmol/L (98-107); CREATININE RESULT 1.08 mg/dL (0.52-1.25); GLUCOSE 108 mg/dL (75-110); MAGNESIUM 1.4 mg/dL (1.6-2.3); POTASSIUM 3.5 mmol/L (3.6-5.0)
[2017-06-25] MEDS ORDERED: POTASSIUM CHLORIDE 10 MEQ TABLET.SA PO ONE (07:00)
[2017-06-25] MEDS: MAGNESIUM SULFATE 1 GM/D5W 100 ML IV SCH ×2 (07:01→09:14)
[2017-06-25] MEDS ORDERED: SORBITOL 70% SOLUTION 30 ML UDC PO PRN (08:04)
--- NOTE | 2017-06-25 08:19 | PDOC PROGRESS REPORT ---
Subjective Progress Note for:: 06/25/17 Subjective:: Patient refers that she still constipated and her breathing is better. Patient was approached regarding hospice however she states that she prefers home health since they do better job. She was made aware that considering her medical condition home health may not be able to provide the services that she may need at the end. ROS All organ systems evaluated and negative except as in subjective All all significant laboratories and diagnostics have been reviewed Reason For Visit: HEART FAILURE Physical Exam Vital Signs: Temp Pulse Resp BP Pulse Ox 98.2 F 74 16 126/75 H 99 06/25/17 03:58 06/25/17 07:21 06/24/17 20:11 06/24/17 18:00 06/25/17 01:02 Intake & Output 06/24/17 06/25/17 06/26/17 06:59 06:59 06:59 Intake Total 816 629 Output Total 3240 3310 Balance -2424 -7121 Weight 86.7 kg 83.1 kg General appearance: PRESENT: no acute distress, cooperative, obese Head exam: PRESENT: atraumatic, normocephalic Eye exam: PRESENT: EOMI, PERRLA Ear exam: PRESENT: normal external ear exam Mouth exam: PRESENT: moist, neck supple Neck exam: PRESENT: full ROM. ABSENT: JVD Respiratory exam: PRESENT: clear to auscultation ignacio Cardiovascular exam: PRESENT: RRR, systolic murmur. ABSENT: diastolic murmur Vascular exam: PRESENT: normal capillary refill GI/Abdominal exam: PRESENT: normal bowel sounds, soft. ABSENT: tenderness Extremities exam: PRESENT: pedal edema. ABSENT: joint swelling Neurological exam: PRESENT: alert, oriented to person, oriented to place, oriented to time Psychiatric exam: PRESENT: appropriate affect, normal mood Results Laboratory Results: 06/25/17 05:10 06/25/17 05:10 06/25/17 06/25/17 05:10 05:10 WBC 7.7 RBC 4.04 Hgb 13.5 Hct 41.1 MCV 102 H MCH 33.5 H MCHC 32.9 RDW 16.0 H Plt Count 189 Seg Neutrophils % 74.6 Lymphocytes % 8.7 L Monocytes % 10.3 Eosinophils % 5.1 Basophils % 1.3 Absolute Neutrophils 5.7 Absolute Lymphocytes 0.7 Absolute Monocytes 0.8 Absolute Eosinophils 0.4 Absolute Basophils 0.1 Sodium 139.0 Potassium 3.5 L Chloride 96 L Carbon Dioxide 35 H Anion Gap 8 BUN 51 H Creatinine 1.08 Est GFR ( Amer) 59 L Est GFR (Non-Af Amer) 49 L Glucose 108 Calcium 9.4 Magnesium 1.4 L 06/18/17 06/18/17 06/18/17 01:22 01:22 06:40 Creatine Kinase 85 73 CK-MB (CK-2) 2.27 Troponin I 0.067 06/18/17 06/18/17 06/18/17 06:40 11:59 11:59 Creatine Kinase 73 CK-MB (CK-2) 1.97 2.20 Troponin I 0.073 0.074 06/19/17 06/19/17 06/20/17 04:19 10:30 07:30 Creatine Kinase CK-MB (CK-2) Troponin I 0.279 0.183 0.109 Impressions: Renal Ultrasound 06/20/17 00:00 IMPRESSION: No hydronephrosis. Chest X-Ray 06/24/17 06:00 IMPRESSION: Cardiomegaly. Mild interstitial edema. Assessment & Plan - Diagnosis (1) Mitral regurgitation Qualifiers: Cardiac valve disease etiology: etiology unspecified Qualified Code(s): I34.0 - Nonrheumatic mitral (valve) insufficiency Is this a current diagnosis for this admission?: Yes Plan: Likely culprit of presentation (2) Acute on chronic congestive heart failure Qualifiers: Congestive heart failure type: systolic Qualified Code(s): I50.23 - Acute on chronic systolic (congestive) heart failure Is this a current diagnosis for this admission?: Yes Plan: Managed per cardiology. Improved. May be able to come off levophed today. (3) Acute on chronic renal failure Qualifiers: Acute renal failure type: unspecified Chronic kidney disease stage: stage 3 (moderate) Qualified Code(s): N17.9 - Acute kidney failure, unspecified; N18.3 - Chronic kidney disease, stage 3 (moderate); N18.3 - Chronic kidney disease, stage 3 (moderate) Is this a current diagnosis for this admission?: Yes Plan: Continues improving. Patient appears to be cardiorenal (4) Anemia in chronic kidney disease Is this a current diagnosis for this admission?: Yes Plan: Stable (5) Pulmonary hypertension Is this a current diagnosis for this admission?: Yes Plan: Due to valvular disease (6) Constipation Qualifiers: Constipation type: slow transit constipation Qualified Code(s): K59.01 - Slow transit constipation Is this a current diagnosis for this admission?: Yes Plan: add sorbitol to current regimen (7) Debility Is this a current diagnosis for this admission?: Yes Plan: Consult PT - Time Time Spent with patient: 15-24 minutes Anticipated discharge: Home with Homehealth Within: within 48 hours - Inpatient Certification Based on my medical assessment, after consideration of the patient's comorbidities, presenting symptoms, or acuity I expect that the services needed warrant INPATIENT care.: Yes I certify that my determination is in accordance with my understanding of Medicare's requirements for reasonable and necessary INPATIENT services [42 CFR 412.3e].: Yes Medical Necessity: Need For IV Fluids
[2017-06-25] MEDS: LEVOTHYROXINE SODIUM 0.025 MG TABLET PO SCH (09:15)
[2017-06-25] MEDS: BETAMETHASONE VALERATE 0.1% TP SCH (09:15)
[2017-06-25] MEDS: METOPROLOL SUCCINATE 25 MG TAB.SR.24H PO SCH (09:18)
[2017-06-25] MEDS: POTASSIUM CHLORIDE 20 MEQ/15 ML UDCUP PO SCH (09:18)
[2017-06-25] MEDS: POLYETHYLENE GLYCOL 3350 POWDER 17 GM/1 PACKET PO SCH (09:18)
[2017-06-25] MEDS: DOCUSATE SODIUM 100 MG CAPSULE PO SCH (09:18)
[2017-06-25] MEDS: LEVALBUTEROL HCL NEB 1.25 MG/3 ML AMPUL NEB PRN (09:18)
[2017-06-25] MEDS: LEVOTHYROXINE SODIUM 0.1 MG TABLET PO SCH (09:19)
[2017-06-25] MEDS: ONDANSETRON HCL INJ/PF 4 MG/2 ML SDV IV PRN (10:20)
[2017-06-25] MEDS ORDERED: NORMAL SALINE 250 ML with FUROSEMIDE 250 MG IV PRN ×2 (11:26)
[2017-06-25] MEDS: NITROGLYCERIN 10 MG (0.4 MG/HR) PATCH.TD24 TD SCH (11:56)
[2017-06-25] MEDS ORDERED: LISINOPRIL 5 MG TABLET PO ONE (12:00)
[2017-06-25] MEDS: PHARMACY COMMUNICATION ORDER MC SCH (17:15)
[2017-06-25] MEDS: GABAPENTIN 300 MG CAPSULE PO SCH (22:54)
[2017-06-25] MEDS: MONTELUKAST SODIUM 10 MG TABLET PO SCH (22:54)
[2017-06-25] MEDS: ATORVASTATIN CALCIUM 80 MG TABLET PO SCH (22:54)
--- NOTE | 2017-06-26 00:19 | PROGRESS NOTE E ---
Progress Note NAME: RANDELL STERLING : 1935 AGE: 82Y DATE: 06/25/2017 ROOM: 608 SUBJECTIVE: The patient feels much better but still has some residual orthopnea. She has no shortness of breath. There is no recurrence of atrial fibrillation. There is no ventricular arrhythmia seen. There is no PND. There is no leg edema. There is no chest pain or discomfort. There is no palpitations. There are no TIA or CVA symptoms. OBJECTIVE: GENERAL: On examination, the patient is moderately obese, in no acute distress. VITAL SIGNS: She is afebrile with a temperature of *------*. EYES: Pupils are equal, round, reactive to light and accommodation. Extraocular movements are normal *------*. There is no conjunctival pallor. There is no scleral icterus. ENT: Negative. NECK: Supple. There is no lymphadenopathy. Carotids are equal. There is no bruit. Trachea is central. LUNGS: Clear to auscultation and percussion. There are no rales or CHF. S1, S2 is heard. There is no S3 gallop. There is no S4 gallop. There is murmur of mitral regurgitation and tricuspid regurgitation present. There is no rub. ABDOMEN: Soft, obese, nontender. There is no hepatosplenomegaly. Bowel sounds are well heard. There are no tender areas or masses. EXTREMITIES: Femorals are diminished. There are no femoral bruits. Leg pulses are diminished. There is no pedal edema. There is no DVT or cellulitis. There is no cyanosis or clubbing. There is no calf tenderness. PATIENT CARE DIRECTOR: The patient is conscious, awake, alert, oriented x3, with no focal deficit. PSYCHIATRIC: The patient's judgement and insight are intact, and the affect is normal. In fact she is very tearful today. The patient's 24-hour intake is 629 mL; output is 3340 mL. LABORATORY DATA: White count is 7,700, hemoglobin is 13.5, hematocrit is 41.1, and the platelet count is 189,000. Sodium is 139, potassium is mildly low at 3.5, chloride is 96, CO2 is 35, BUN has come down to 51, creatinine is 1.08, GFR has gone up to 49 mL, glucose is 98. *------* is 1.4. Calcium is 9.4. IMPRESSION: 1. Acute on chronic congestive heart failure. Much improved. Note that the patient's Levophed has been decreased to 1 mg per minute and we will further stop it tomorrow. We will stop the patient once this bag is over. Continue STACY inhibitor and hydralazine. Continue beta ilan. 2. Acute on chronic renal failure. At present, GFR improved to 49 mL which is stage 3. This is good progression. 3. Hypertension. Blood pressure well controlled. 4. Elevated Troponin I. This has trended down. This is secondary to heart failure. No evidence of [id number] MO. 5. History of coronary artery disease. No anginal symptoms. 6. As per the family, the patient has a history of [id number] MO in 2005. We will [facility] to see if this is true, in which case the patient will be admitted to criteria for placement of an AICD, most likely by ventricular AICD. 7. Diet controlled diabetes mellitus. 8. Moderate to severe mitral regurgitation. 9. Severe tricuspid regurgitation. 10. Severe pulmonary hypertension. We will recheck the patient's limited echo once the patient is off the Levophed. 11. Paroxysmal atrial fibrillation with no recurrence. 12. Left bundle branch block pattern. 13. Cardiomyopathy with severely reduced LV ejection fraction. We will recheck if there has been any improvement in the EF. 14. Hypothyroidism. Continue placement. RECOMMENDATION: As mentioned earlier. TIME SPENT: Note, 40 minutes of critical care time spent on this patient, and discussed with the patient and patient's [id number] and patient's family. All questions were answered. We will discuss with EP Cardiology tomorrow at [facility] if they agree on placing a biventricular AICD on this patient. Once the patient is off the IV Lasix drip, we will put the patient on p.o. Lasix. Note, medical decision making was highly complex. Discussed with the Hospitalist taking care of the patient and the nurses taking care of the patient in the ICU. DICTATING PHYSICIAN: CORRY PIMENTEL M.D. [id number] ELVIS#: [id number] ID: [id number] JOB#: [id number] ACCT: [id number] cc: >
[2017-06-26] MEDS: HYDRALAZINE HCL 10 MG TABLET PO SCH ×3 (05:29→21:57)
[2017-06-26 06:20] LABS: ABSOLUTE BASOPHILS # (AUTO) 0.1 10^3/uL (0.0-0.2); ABSOLUTE EOSINOPHILS # (AUTO) 0.4 10^3/uL (0.0-0.6); ABSOLUTE LYMPHOCYTES (AUTO) 0.5 10^3/uL (0.5-4.7); ABSOLUTE MONOCYTES (AUTO) 0.9 10^3/uL (0.1-1.4); ABSOLUTE NEUT (AUTO) 6.1 10^3/uL (1.7-8.2); BASOPHILS % (AUTO) 0.9 % (0-2); EOSINOPHILS % (AUTO) 4.5 % (0-6); HEMATOCRIT 40.8 % (36.0-47.0); HEMOGLOBIN 13.4 g/dL (12.0-15.5); HGB HCT DIFFERENCE -0.6; LYMPHOCYTES % (AUTO) 6.8 % (13-45); MEAN CORPUSCULAR HEMOGLOBIN 33.6 pg (27.0-33.4); MEAN CORPUSCULAR HGB CONC 32.9 g/dL (32.0-36.0); MEAN CORPUSCULAR VOLUME 102 fl (80-97); MONOCYTES % (AUTO) 10.8 % (3-13); RED BLOOD COUNT 3.99 10^6/uL (3.72-5.28); RED CELL DISTRIBUTION WIDTH 16.6 % (11.5-14.0); WHITE BLOOD COUNT 7.9 10^3/uL (4.0-10.5)
[2017-06-26 06:37] LABS: ANION GAP 8 (5-19); BLOOD UREA NITROGEN 52 mg/dL (7-20); CALCIUM 9.5 mg/dL (8.4-10.2); CARBON DIOXIDE 35 mmol/L (22-30); CHLORIDE 96 mmol/L (98-107); CREATININE RESULT 1.37 mg/dL (0.52-1.25); GLUCOSE 107 mg/dL (75-110); MAGNESIUM 1.9 mg/dL (1.6-2.3); POTASSIUM 4.6 mmol/L (3.6-5.0); SODIUM 139.4 mmol/L (137-145)
[2017-06-26] MEDS ORDERED: FUROSEMIDE INJ/PF 40 MG/4 ML SDV IV ONE (08:30)
[2017-06-26] MEDS ORDERED: NA PHOS,M-B/NA PHOS,DI-BA (ADULT) 133 ML ENEMA PR ONE (09:30)
--- NOTE | 2017-06-26 09:30 | PDOC PROGRESS REPORT ---
Subjective Progress Note for:: 06/26/17 Subjective:: Patient refers that she still constipated. Nurse reports that patient is off levophed and iv lasix. ROS All organ systems evaluated and negative except as in subjective All all significant laboratories and diagnostics have been reviewed Reason For Visit: HEART FAILURE Physical Exam Vital Signs: Temp Pulse Resp BP Pulse Ox 98.5 F 69 22 H 110/68 98 06/26/17 05:35 06/25/17 20:18 06/25/17 16:00 06/25/17 16:00 06/26/17 03:04 Intake & Output 06/24/17 06/25/17 06/26/17 06:59 06:59 06:59 Intake Total 816 629 911 Output Total 3240 3310 1790 Balance -7068 -3990 -899 Weight 86.7 kg 83.1 kg 86.3 kg General appearance: PRESENT: no acute distress, cooperative, obese Head exam: PRESENT: atraumatic, normocephalic Eye exam: PRESENT: EOMI, PERRLA Ear exam: PRESENT: normal external ear exam, TM's normal bilaterally Mouth exam: PRESENT: moist, neck supple Neck exam: PRESENT: full ROM, JVD. ABSENT: tenderness Respiratory exam: PRESENT: clear to auscultation ignacio. ABSENT: crackles, rhonchi Cardiovascular exam: PRESENT: RRR. ABSENT: diastolic murmur, systolic murmur Vascular exam: PRESENT: normal capillary refill GI/Abdominal exam: PRESENT: normal bowel sounds, soft. ABSENT: distended, tenderness Extremities exam: PRESENT: pedal edema. ABSENT: joint swelling Musculoskeletal exam: PRESENT: full ROM Neurological exam: PRESENT: alert, oriented to person, oriented to place, oriented to time Psychiatric exam: PRESENT: appropriate affect, normal mood Results Laboratory Results: 06/25/17 05:10 06/25/17 05:10 06/25/17 05:10 Sodium 139.0 Potassium 3.5 L Chloride 96 L Carbon Dioxide 35 H Anion Gap 8 BUN 51 H Creatinine 1.08 Est GFR ( Amer) 59 L Est GFR (Non-Af Amer) 49 L Glucose 108 Calcium 9.4 Magnesium 1.4 L 06/18/17 06/18/17 06/18/17 01:22 01:22 06:40 Creatine Kinase 85 73 CK-MB (CK-2) 2.27 Troponin I 0.067 06/18/17 06/18/17 06/18/17 06:40 11:59 11:59 Creatine Kinase 73 CK-MB (CK-2) 1.97 2.20 Troponin I 0.073 0.074 06/19/17 06/19/17 06/20/17 04:19 10:30 07:30 Creatine Kinase CK-MB (CK-2) Troponin I 0.279 0.183 0.109 Impressions: Renal Ultrasound 06/20/17 00:00 IMPRESSION: No hydronephrosis. Chest X-Ray 06/24/17 06:00 IMPRESSION: Cardiomegaly. Mild interstitial edema. Assessment & Plan - Diagnosis (1) Mitral regurgitation Qualifiers: Cardiac valve disease etiology: etiology unspecified Qualified Code(s): I34.0 - Nonrheumatic mitral (valve) insufficiency Is this a current diagnosis for this admission?: Yes Plan: Likely culprit of presentation (2) Acute on chronic congestive heart failure Qualifiers: Congestive heart failure type: systolic Qualified Code(s): I50.23 - Acute on chronic systolic (congestive) heart failure Is this a current diagnosis for this admission?: Yes Plan: Managed per cardiology. Improved. Strong cardiorenal component (3) Acute on chronic renal failure Qualifiers: Acute renal failure type: unspecified Chronic kidney disease stage: stage 3 (moderate) Qualified Code(s): N17.9 - Acute kidney failure, unspecified; N18.3 - Chronic kidney disease, stage 3 (moderate); N18.3 - Chronic kidney disease, stage 3 (moderate) Is this a current diagnosis for this admission?: Yes Plan: Stable but cardiorenal (4) Anemia in chronic kidney disease Is this a current diagnosis for this admission?: Yes Plan: Stable (5) Pulmonary hypertension Is this a current diagnosis for this admission?: Yes Plan: Due to valvular disease (6) Constipation Qualifiers: Constipation type: slow transit constipation Qualified Code(s): K59.01 - Slow transit constipation Is this a current diagnosis for this admission?: Yes Plan: Add reglan and fleet enema if not improving (7) Debility Is this a current diagnosis for this admission?: Yes Plan: PT consulted - Time Time Spent with patient: Less than 15 minutes Medications reviewed and adjusted accordingly: Yes Anticipated discharge: Home with Homehealth Within: within 72 hours - Inpatient Certification Based on my medical assessment, after consideration of the patient's comorbidities, presenting symptoms, or acuity I expect that the services needed warrant INPATIENT care.: Yes I certify that my determination is in accordance with my understanding of Medicare's requirements for reasonable and necessary INPATIENT services [42 CFR 412.3e].: Yes Medical Necessity: Need Close Monitoring Due to Risk of Patient Decompensation
[2017-06-26] MEDS: NITROGLYCERIN 10 MG (0.4 MG/HR) PATCH.TD24 TD SCH (11:34)
[2017-06-26] MEDS: POTASSIUM CHLORIDE 20 MEQ/15 ML UDCUP PO SCH (11:35)
[2017-06-26] MEDS: METOPROLOL SUCCINATE 25 MG TAB.SR.24H PO SCH (11:36)
[2017-06-26] MEDS: LISINOPRIL 5 MG TABLET PO SCH (11:36)
[2017-06-26] MEDS: METOCLOPRAMIDE HCL INJ/PF 10 MG/2 ML SDV IV SCH ×2 (11:36→18:00)
[2017-06-26] MEDS: LEVOTHYROXINE SODIUM 0.1 MG TABLET PO SCH (11:37)
[2017-06-26] MEDS: METOLAZONE 2.5 MG TABLET PO SCH (11:37)
[2017-06-26] MEDS: HEPARIN SOD (PORCINE) 5,000 UNIT/ML 1 ML SYRINGE SUBCUT SCH ×2 (11:38→21:37)
[2017-06-26] MEDS: LEVOTHYROXINE SODIUM 0.025 MG TABLET PO SCH (11:39)
[2017-06-26] MEDS: DOCUSATE SODIUM 100 MG CAPSULE PO SCH (11:41)
[2017-06-26] MEDS: POLYETHYLENE GLYCOL 3350 POWDER 17 GM/1 PACKET PO SCH (11:41)
--- NOTE | 2017-06-26 13:19 | PDOC PROGRESS REPORT ---
Subjective Progress Note for:: 06/26/17 Subjective:: Patient is currently doing well, she says that her shortness of breath is still remaining intermittent. Currently off levo with bp in the 120s. She was recently taken off a lasix drip and switched to IV lasix. Reason For Visit: HEART FAILURE Physical Exam Vital Signs: Temp Pulse Resp BP Pulse Ox 97.8 F 96 29 H 133/88 H 93 06/26/17 12:00 06/26/17 12:00 06/26/17 12:00 06/26/17 12:00 06/26/17 12:00 Intake & Output 06/25/17 06/26/17 06/27/17 06:59 06:59 06:59 Intake Total 629 947 237 Output Total 3310 1790 60 Balance -5801 -843 177 Weight 83.1 kg 86.3 kg General appearance: PRESENT: no acute distress, well-developed, well-nourished Head exam: PRESENT: atraumatic, normocephalic Mouth exam: PRESENT: moist, tongue midline Neck exam: PRESENT: full ROM. ABSENT: JVD Respiratory exam: PRESENT: crackles. ABSENT: accessory muscle use, clear to auscultation ignacio Cardiovascular exam: PRESENT: RRR, +S1, +S2 GI/Abdominal exam: PRESENT: normal bowel sounds, soft. ABSENT: ascites, tenderness Extremities exam: PRESENT: pedal edema - -trace+. ABSENT: joint swelling, tenderness Musculoskeletal exam: PRESENT: normal inspection. ABSENT: tenderness Neurological exam: PRESENT: alert, awake, oriented to person, oriented to place , oriented to time, oriented to situation Psychiatric exam: PRESENT: appropriate affect, normal mood Skin exam: PRESENT: dry, intact, warm Results Laboratory Results: 06/26/17 05:45 06/26/17 05:45 06/26/17 06/26/17 05:45 05:45 WBC 7.9 RBC 3.99 Hgb 13.4 Hct 40.8 MCV 102 H MCH 33.6 H MCHC 32.9 RDW 16.6 H Plt Count 187 Seg Neutrophils % 77.0 Lymphocytes % 6.8 L Monocytes % 10.8 Eosinophils % 4.5 Basophils % 0.9 Absolute Neutrophils 6.1 Absolute Lymphocytes 0.5 Absolute Monocytes 0.9 Absolute Eosinophils 0.4 Absolute Basophils 0.1 Sodium 139.4 Potassium 4.6 Chloride 96 L Carbon Dioxide 35 H Anion Gap 8 BUN 52 H Creatinine 1.37 H Est GFR ( Amer) 45 L Est GFR (Non-Af Amer) 37 L Glucose 107 Calcium 9.5 Magnesium 1.9 06/18/17 06/18/17 06/18/17 01:22 01:22 06:40 Creatine Kinase 85 73 CK-MB (CK-2) 2.27 Troponin I 0.067 06/18/17 06/18/17 06/18/17 06:40 11:59 11:59 Creatine Kinase 73 CK-MB (CK-2) 1.97 2.20 Troponin I 0.073 0.074 06/19/17 06/19/17 06/20/17 04:19 10:30 07:30 Creatine Kinase CK-MB (CK-2) Troponin I 0.279 0.183 0.109 Impressions: Renal Ultrasound 06/20/17 00:00 IMPRESSION: No hydronephrosis. Chest X-Ray 06/24/17 06:00 IMPRESSION: Cardiomegaly. Mild interstitial edema. Assessment & Plan - Diagnosis (1) Acute on chronic congestive heart failure Qualifiers: Congestive heart failure type: systolic Qualified Code(s): I50.23 - Acute on chronic systolic (congestive) heart failure Is this a current diagnosis for this admission?: Yes Plan: currently being diuresised, managed by cardiology (2) Acute on chronic renal failure Qualifiers: Acute renal failure type: unspecified Chronic kidney disease stage: stage 3 (moderate) Qualified Code(s): N17.9 - Acute kidney failure, unspecified; N18.3 - Chronic kidney disease, stage 3 (moderate); N18.3 - Chronic kidney disease, stage 3 (moderate) Is this a current diagnosis for this admission?: Yes Plan: currently improving, looks to be less fluid overloaded, at this time nephrology will sign off. We will f/u with her 2 weeks after she is discharged from the hospital (3) Hyperkalemia Is this a current diagnosis for this admission?: Yes Plan: currently stable (4) Diabetes Qualifiers: Diabetes mellitus type: type 2 Diabetes mellitus complication status: with kidney complications Diabetes mellitus complication detail: with chronic kidney disease Diabetes mellitus ad terminal makeup operator insulin use: without senior care use Chronic kidney disease stage: stage 3 (moderate) Qualified Code(s): E11.22 - Type 2 diabetes mellitus with diabetic chronic kidney disease; N18.3 - Chronic kidney disease, stage 3 (moderate); N18.3 - Chronic kidney disease, stage 3 (moderate) Is this a current diagnosis for this admission?: Yes Plan: controlled (5) Hypertension Qualifiers: Hypertension type: renovascular hypertension Qualified Code(s): I15.0 - Renovascular hypertension Is this a current diagnosis for this admission?: Yes Plan: stable (6) Metabolic acidosis Is this a current diagnosis for this admission?: Yes Plan: currently stable - Notes Notes: Patients kidney function is stable and the diuresis is being managed by cardiology so at this time nephrology is signing off.
[2017-06-26] MEDS: NORMAL SALINE INJ/PF 0.9% 10 ML SDV IV PRN (15:45)
[2017-06-26] MEDS ORDERED: LISINOPRIL 5 MG TABLET PO SCH (20:29)
--- NOTE | 2017-06-26 21:23 | PROGRESS NOTE E ---
Progress Note NAME: RANDELL STERLING : 1935 AGE: 82Y DATE: 06/26/2017 ROOM: 608 SUBJECTIVE: Note that the patient states that she feels better. She still has some orthopnea, but no leg edema. There is no PND. There is no chest pain or discomfort. There is no arrhythmia seen. There are no TIA or CVA symptoms. Note, with the patient being on 1 mcg/min of Levophed and a Lasix drip being stopped, the patient's renal function has deteriorated; hence, will start the patient on IV Lasix and p.o. metolazone. OBJECTIVE: GENERAL: Patient is moderately obese, in no acute distress. VITAL SIGNS: She is afebrile, with a temperature of 97.8 degrees Fahrenheit. Pulse is 96 beats per minute, blood pressure is 138/88, respirations are 24 per minute. O2 sats are 98% on 2 liters nasal cannula. HEENT: Head is atraumatic, normocephalic. Eyes: Pupils are equal, round, regular, reactive to light and accommodation. Extraocular movements are normal. There is no conjunctival pallor. There is no scleral icterus. ENT is negative. NECK: Supple. There is no lymphadenopathy. Carotids are equal. There is no bruit. Trachea is central. LUNGS: Clear to auscultation and percussion. There are no rales or CHF. HEART: S1, S2 heard. There is no S3 gallop. There is a murmur of mitral regurgitation and tricuspid regurgitation present. There is no rub. ABDOMEN: Soft, obese, nontender. There is no hepatosplenomegaly. Bowel sounds are well-heard. There are no tender areas or masses. EXTREMITIES: Femorals are diminished. There are no femoral bruits. Leg pulses diminished. There is no pedal edema. There is no DVT or cellulitis. There is no cyanosis or clubbing. There is no calf tenderness. CENTRAL NERVOUS SYSTEM: The patient is conscious, awake, alert, oriented x3, with no focal deficit. PSYCHIATRIC: The patient's judgment and insight are intact, and the affect is normal, intact. In fact, she is very cheerful today. The patient's 24-hour intake is 947 mL, output is 1790 mL. LABORATORY DATA: The patient's white count is 7900, hemoglobin is 13.4, hematocrit is 40.8. Her platelet count is 187,000. The patient's sodium is 139.4, potassium is 4.6, chloride is 96, CO2 is 35. The patient's BUN is 52 and creatinine is 1.37. GFR is reduced to 37 mL, which is chronic kidney disease stage III. Glucose is 107 and her calcium is 95. Magnesium is 1.9. ASSESSMENT AND PLAN: 1. ACUTE ON CHRONIC CONGESTIVE HEART FAILURE. Patient's renal function has regressed and the patient does seem to be in a little bit of heart failure still. Would recommend continuing the patient on hydralazine and continuing the angiotensin-converting enzyme inhibitor. Continue the patient on Coreg. Continue the patient on Levophed 1 mcg/min. Would recommend starting the patient on Lasix 40 mg intravenous push q.12 hours and also on metolazone 2.5 mg p.o. now and daily to see if this will help the renal function and the heart failure. 2. ACUTE ON CHRONIC RENAL FAILURE. At present, GFR has deteriorated to 37 mL, which is stage III. This has come down from 49 mL/min. Please note, as mentioned earlier, will start the patient on diuresis intravenously to see if that will improve the renal function. 3. HYPERTENSION. Blood pressure well-controlled. 4. ELEVATED TROPONIN I. This has trended down. This is secondary to heart failure and renal failure. No evidence of non-ST elevation myocardial infarction. 5. HISTORY OF CORONARY ARTERY DISEASE. No anginal symptoms. 6. DIET-CONTROLLED DIABETES MELLITUS. 7. MODERATE TO SEVERE MITRAL REGURGITATION. 8. SEVERE TRICUSPID REGURGITATION. 9. SEVERE PULMONARY HYPERTENSION. Will recheck the patient's limited echocardiogram once the patient is off Levophed. 10. PAROXYMSAL ATRIAL FIBRILLATION. No recurrence. 11. LEFT BUNDLE BRANCH BLOCK PATTERN. 12. CARDIOMYOPATHY WITH SEVERELY REDUCED LEFT VENTRICULAR EJECTION FRACTION. Will recheck limited echocardiogram to see if there is any improvement in the left ventricular ejection fraction. The other option is to talk to Electrophysiology and see if the patient would be a candidate for biventricular cardiac resynchronization therapy. 13. HYPOTHYROIDISM. Continue replacement. Note, as mentioned earlier, the patient has been started on intravenous diuretics and also oral metolazone. The patient is on angiotensin-converting enzyme inhibitor. Will increase the angiotensin-converting enzyme inhibitor to 10 mg p.o. q.12 hours from tomorrow. NOTE: Thirty-five minutes of critical care time spent on this patient. The patient was seen from 12:00 noon to 12:35 p.m. Patient's medications reviewed. Medications adjusted. Also discussed with the hospitalist taking care of the patient and also the patient's family and the patient and the nurses taking care of the patient on the unit. Medical decision-making is still of high complexity. Will follow with you. Thank you. DICTATING PHYSICIAN: CORRY PIMENTEL M.D. [id number] PHY#: [id number] ID: [id number] JOB#: [id number] ACCT: [id number] cc:CORRY PIMENTEL M.D. >
[2017-06-26] MEDS: FUROSEMIDE INJ/PF 40 MG/4 ML SDV IV SCH (21:34)
[2017-06-26] MEDS: ATORVASTATIN CALCIUM 80 MG TABLET PO SCH (21:36)
[2017-06-26] MEDS: GABAPENTIN 300 MG CAPSULE PO SCH (21:37)
[2017-06-26] MEDS: MONTELUKAST SODIUM 10 MG TABLET PO SCH (21:37)
[2017-06-26] MEDS: LISINOPRIL 10 MG TABLET PO SCH (21:57)
[2017-06-27] MEDS: METOCLOPRAMIDE HCL INJ/PF 10 MG/2 ML SDV IV SCH ×4 (00:03→17:24)
[2017-06-27] MEDS: IPRATROPIUM/ALBUTEROL 0.5-2.5 MG/3 ML AMPUL NEB PRN ×2 (03:48→22:24)
[2017-06-27 04:34] LABS: ANION GAP 10 (5-19); BLOOD UREA NITROGEN 50 mg/dL (7-20); CALCIUM 9.5 mg/dL (8.4-10.2); CARBON DIOXIDE 36 mmol/L (22-30); CHLORIDE 94 mmol/L (98-107); CREATININE RESULT 1.16 mg/dL (0.52-1.25); GLUCOSE 109 mg/dL (75-110); MAGNESIUM 1.8 mg/dL (1.6-2.3); POTASSIUM 4.3 mmol/L (3.6-5.0); SODIUM 139.6 mmol/L (137-145)
[2017-06-27] MEDS: LEVOTHYROXINE SODIUM 0.1 MG TABLET PO SCH (05:46)
[2017-06-27] MEDS: LEVOTHYROXINE SODIUM 0.025 MG TABLET PO SCH (05:47)
[2017-06-27] MEDS: HYDRALAZINE HCL 10 MG TABLET PO SCH ×3 (05:48→22:20)
--- NOTE | 2017-06-27 08:02 | PDOC PROGRESS REPORT ---
Subjective Progress Note for:: 06/27/17 Subjective:: Patient relates that was able to move her bowels ROS All organ systems evaluated and negative except as in subjective All all significant laboratories and diagnostics have been reviewed Reason For Visit: HEART FAILURE Physical Exam Vital Signs: Temp Pulse Resp BP Pulse Ox 98.0 F 90 22 H 121/68 96 06/27/17 04:00 06/27/17 03:50 06/27/17 03:50 06/26/17 16:00 06/27/17 00:34 Intake & Output 06/25/17 06/26/17 06/27/17 06:59 06:59 06:59 Intake Total 629 947 559 Output Total 3310 8939 5820 Balance -4412 -570 -3774 Weight 83.1 kg 86.3 kg General appearance: PRESENT: no acute distress, obese Head exam: PRESENT: atraumatic, normocephalic Eye exam: PRESENT: EOMI, PERRLA Mouth exam: PRESENT: moist Neck exam: PRESENT: full ROM. ABSENT: JVD Respiratory exam: PRESENT: clear to auscultation ignacio. ABSENT: crackles, wheezes Cardiovascular exam: PRESENT: RRR, systolic murmur. ABSENT: diastolic murmur Vascular exam: PRESENT: normal capillary refill GI/Abdominal exam: PRESENT: normal bowel sounds, soft. ABSENT: tenderness Extremities exam: PRESENT: full ROM, pedal edema Neurological exam: PRESENT: alert, oriented to person Results Laboratory Results: 06/26/17 05:45 06/27/17 04:00 06/26/17 06/26/17 06/27/17 05:45 05:45 04:00 WBC 7.9 RBC 3.99 Hgb 13.4 Hct 40.8 MCV 102 H MCH 33.6 H MCHC 32.9 RDW 16.6 H Plt Count 187 Seg Neutrophils % 77.0 Lymphocytes % 6.8 L Monocytes % 10.8 Eosinophils % 4.5 Basophils % 0.9 Absolute Neutrophils 6.1 Absolute Lymphocytes 0.5 Absolute Monocytes 0.9 Absolute Eosinophils 0.4 Absolute Basophils 0.1 Sodium 139.4 139.6 Potassium 4.6 4.3 Chloride 96 L 94 L Carbon Dioxide 35 H 36 H Anion Gap 8 10 BUN 52 H 50 H Creatinine 1.37 H 1.16 Est GFR ( Amer) 45 L 54 L Est GFR (Non-Af Amer) 37 L 45 L Glucose 107 109 Calcium 9.5 9.5 Magnesium 1.9 1.8 06/18/17 06/18/17 06/18/17 01:22 01:22 06:40 Creatine Kinase 85 73 CK-MB (CK-2) 2.27 Troponin I 0.067 06/18/17 06/18/17 06/18/17 06:40 11:59 11:59 Creatine Kinase 73 CK-MB (CK-2) 1.97 2.20 Troponin I 0.073 0.074 06/19/17 06/19/17 06/20/17 04:19 10:30 07:30 Creatine Kinase CK-MB (CK-2) Troponin I 0.279 0.183 0.109 Impressions: Renal Ultrasound 06/20/17 00:00 IMPRESSION: No hydronephrosis. Chest X-Ray 06/24/17 06:00 IMPRESSION: Cardiomegaly. Mild interstitial edema. Assessment & Plan - Diagnosis (1) Mitral regurgitation Qualifiers: Cardiac valve disease etiology: etiology unspecified Qualified Code(s): I34.0 - Nonrheumatic mitral (valve) insufficiency Is this a current diagnosis for this admission?: Yes Plan: Likely culprit of presentation (2) Acute on chronic congestive heart failure Qualifiers: Congestive heart failure type: systolic Qualified Code(s): I50.23 - Acute on chronic systolic (congestive) heart failure Is this a current diagnosis for this admission?: Yes Plan: Managed per cardiology. Improved. Strong cardiorenal component (3) Acute on chronic renal failure Qualifiers: Acute renal failure type: unspecified Chronic kidney disease stage: stage 3 (moderate) Qualified Code(s): N17.9 - Acute kidney failure, unspecified; N18.3 - Chronic kidney disease, stage 3 (moderate); N18.3 - Chronic kidney disease, stage 3 (moderate) Is this a current diagnosis for this admission?: Yes Plan: Stable but cardiorenal (4) Anemia in chronic kidney disease Is this a current diagnosis for this admission?: Yes Plan: Stable (5) Pulmonary hypertension Is this a current diagnosis for this admission?: Yes Plan: Due to valvular disease (6) Constipation Qualifiers: Constipation type: slow transit constipation Qualified Code(s): K59.01 - Slow transit constipation Is this a current diagnosis for this admission?: Yes Plan: Resolved (7) Debility Is this a current diagnosis for this admission?: Yes Plan: PT consulted - Time Time Spent with patient: Less than 15 minutes Medications reviewed and adjusted accordingly: Yes Anticipated discharge: Home with Homehealth Within: Other - still unknown - Inpatient Certification Based on my medical assessment, after consideration of the patient's comorbidities, presenting symptoms, or acuity I expect that the services needed warrant INPATIENT care.: Yes I certify that my determination is in accordance with my understanding of Medicare's requirements for reasonable and necessary INPATIENT services [42 CFR 412.3e].: Yes Medical Necessity: Need Close Monitoring Due to Risk of Patient Decompensation
[2017-06-27] MEDS: METOPROLOL SUCCINATE 25 MG TAB.SR.24H PO SCH (11:50)
[2017-06-27] MEDS: LISINOPRIL 10 MG TABLET PO SCH ×2 (11:52→22:20)
[2017-06-27] MEDS: METOLAZONE 2.5 MG TABLET PO SCH (11:53)
[2017-06-27] MEDS: FUROSEMIDE INJ/PF 40 MG/4 ML SDV IV SCH ×2 (11:53→22:17)
[2017-06-27] MEDS: POTASSIUM CHLORIDE 20 MEQ/15 ML UDCUP PO SCH (11:53)
[2017-06-27] MEDS: HEPARIN SOD (PORCINE) 5,000 UNIT/ML 1 ML SYRINGE SUBCUT SCH ×2 (11:55→22:17)
[2017-06-27] MEDS: NITROGLYCERIN 10 MG (0.4 MG/HR) PATCH.TD24 TD SCH (11:55)
[2017-06-27] MEDS: DOCUSATE SODIUM 100 MG CAPSULE PO SCH (12:01)
[2017-06-27] MEDS: POLYETHYLENE GLYCOL 3350 POWDER 17 GM/1 PACKET PO SCH (12:01)
[2017-06-27] MEDS: GABAPENTIN 300 MG CAPSULE PO SCH (22:16)
[2017-06-27] MEDS: ATORVASTATIN CALCIUM 80 MG TABLET PO SCH (22:16)
[2017-06-27] MEDS: MONTELUKAST SODIUM 10 MG TABLET PO SCH (22:16)
--- NOTE | 2017-06-27 22:53 | Progress Note ---
Provider Note Provider Note: Palliative care follow up visit. 06/27/17 1:20pm Mrs. Kennedy remains in ICU, having been admitted due to low blood pressure and need for diuresis. She suffers with CHF and CKD in addition to cardiomyopathy and mitral regurgitation. She also was having constipation issues until yesterday. Today, Mrs Kennedy says she feels noticably better. She is breathing more easily and is much less edematous. She says she feels stronger and denies pain. Patient denies any symptoms that are not being addressed. She is happy with her choice to get treatment and hopes she can go home soon. I discussed possibilty of rehab for her, but she said she did not want to do that. She is hoping to go home with home health. Her son is not at hospital today, but patient states he is doing well. She has been off the pressors for a day or so and probably will be moved to floor if she continues to do well. I will follow there to help with plans for care after. She tells me there is nothing she wants at present and is happy with care and her improvemnt.
--- NOTE | 2017-06-27 23:29 | PROGRESS NOTE E ---
Progress Note NAME: RANDELL STERLING : 1935 AGE: 82Y DATE: 06/27/2017 ROOM: 608 SUBJECTIVE: The patient denies any chest pain or discomfort. She still has some orthopnea but no shortness of breath. There is no PND. There is no leg edema. There is no arrhythmia seen on the monitor. There is no recurrence of atrial fibrillation. There is no ventricular rhythm seen. There are no TIA or CVA symptoms. OBJECTIVE: GENERAL: On examination, the patient is moderately obese, in no acute distress. VITAL SIGNS: She is afebrile with a temperature of 98.4 degrees Fahrenheit, pulse is 81 beats per minute, blood pressure is 99/50, respirations are 18 per minute, O2 sats are 95% on 4L nasal cannula. HEAD: Atraumatic, normocephalic. EYES: Pupils are equal, round, regular, reactive to light and accommodation. Extraocular movements are normal. There is no conjunctival pallor. There is no scleral icterus. ENT: Negative. NECK: Supple. There is no lymphedema present. Carotids are equal. There is no bruit. Trachea is central. There is no JVD. LUNGS: Clear to auscultation and percussion. There are no rales or CHF. HEART: S1, S2 is heard. There is no S3 gallop. There is no S4 gallop. There is a murmur of mitral regurgitation and tricuspid regurgitation present. There is no rub. ABDOMEN: Soft,obese, nontender. There is no hepatosplenomegaly. Bowel sounds are well heard. There are no tender areas or masses. EXTREMITIES: Femorals are diminished. There is no femoral bruit. Leg pulses are diminished. There is no pedal edema. There is no DVT or cellulitis. There is cyanosis or clubbing. There is no calf tenderness. TELEVISION OPERATOR: The patient is conscious, awake, alert, oriented x3, with no focal deficit. PSYCHIATRIC: The patient's judgement and insight are intact. Her affect is normal. She is very cheerful today also. The patient's 24-hour intake is 559 mL, output is 1810 mL. LABORATORY DATA: The patient's chemistry shows a sodium of 139.6, potassium 4.3, chloride 94, CO2 36, BUN 15, creatinine 1.16, GFR is reduced at 45 mL, which is chronic kidney disease stage 3. Glucose is 186, magnesium 1.8, calcium 9.5. IMPRESSION: 1. Acute on chronic congestive heart failure. At present, seems to be compensated. Continue the patient on hydralazine. The patient's *------* which has been increased. The patient's Levophed has been stopped. We will continue the patient's Lasix 40 mg intravenously q.12 h., and also metolazone. 2. Acute on chronic renal failure. At present, GFR better than yesterday, came up to 45 mL. Continue current treatment. 3. Hypertension. Blood pressure is on the lower side. 4. Elevated troponin I which has trended down. No evidence of twu-CQ-yldnrcxhu TX. 5. History of coronary artery disease. No anginal symptoms. History of stent in the left circumflex. 6. Diet controlled diabetes mellitus. 7. Moderate to severe mitral regurgitation. 8. Severe tricuspid regurgitation. 9. Severe pulmonary hypertension. We will recheck the patient's limited echo in a day or two. 10. Paroxysmal atrial fibrillation. No recurrence. 11. Left bundle branch block pattern. 12. Cardiomyopathy with severely reduced LV ejection fraction. We will check the patient's echo in a day or two to see if there is any improvement in the LV ejection fraction. 13. Hypothyroidism. Continue replacement. Note that the patient is on an STACY inhibitor. This has been increased to 10 mg p.o. q.12 h. Continue the patient on beta ilan. Note, we will discuss with the EP Cardiology at [facility] or *------* [facility] to see if they would be willing to place a biventricular AICD for cardiac resynchronization therapy, and also since the patient's LV ejection fraction is low, to prevent sudden . We will discuss with them. TIME SPENT: Note that 40 minutes was spent on this patient with more than 50% spent on direct patient care. Medications have been reviewed and medications have been adjusted. Also, discussed with other caregiving providers on the case. We will downgrade the patient to telemetry/IMCU. Note, decision making is of highly complex nature in this case. DICTATING PHYSICIAN: CORRY PIMENTEL M.D. [id number] ELVIS#: [id number] ID: [id number] JOB#: [id number] ACCT: [id number] cc: >
[2017-06-28] MEDS: METOCLOPRAMIDE HCL INJ/PF 10 MG/2 ML SDV IV SCH ×4 (00:30→19:19)
[2017-06-28] MEDS: IPRATROPIUM/ALBUTEROL 0.5-2.5 MG/3 ML AMPUL NEB PRN ×2 (04:22→20:16)
[2017-06-28] MEDS: LEVOTHYROXINE SODIUM 0.025 MG TABLET PO SCH (05:20)
[2017-06-28] MEDS: LEVOTHYROXINE SODIUM 0.1 MG TABLET PO SCH (05:21)
[2017-06-28] MEDS: HYDRALAZINE HCL 10 MG TABLET PO SCH ×3 (05:22→22:10)
[2017-06-28] MEDS: METOLAZONE 2.5 MG TABLET PO SCH (08:12)
[2017-06-28] MEDS: DOCUSATE SODIUM 100 MG CAPSULE PO SCH (09:20)
[2017-06-28] MEDS: POTASSIUM CHLORIDE 20 MEQ/15 ML UDCUP PO SCH (09:21)
[2017-06-28] MEDS: POLYETHYLENE GLYCOL 3350 POWDER 17 GM/1 PACKET PO SCH (09:22)
[2017-06-28] MEDS: HEPARIN SOD (PORCINE) 5,000 UNIT/ML 1 ML SYRINGE SUBCUT SCH ×2 (09:23→22:08)
[2017-06-28] MEDS: FUROSEMIDE INJ/PF 40 MG/4 ML SDV IV SCH (09:24)
[2017-06-28] MEDS: METOPROLOL SUCCINATE 25 MG TAB.SR.24H PO SCH (09:40)
[2017-06-28] MEDS: LISINOPRIL 10 MG TABLET PO SCH ×2 (09:40→22:10)
[2017-06-28] MEDS: CEFTRIAXONE 1 GM/D5W RTU 1 GM/50 ML RTUPB IV SCH (10:15)
[2017-06-28 10:34] LABS: APPEARANCE,URINE CLOUDY; BILIRUBIN,URINE NEGATIVE (NEGATIVE); GLUCOSE, URINE NEGATIVE (NEGATIVE); KETONES,URINE NEGATIVE (NEGATIVE); LEUKOCYTE ESTERASE,URINE LARGE (NEGATIVE); NITRITE,URINE NEGATIVE (NEGATIVE); PROTEIN,URINE 30 mg/dL (NEGATIVE); URINE SPECIFIC GRAVITY 1.011
[2017-06-28] MEDS: NITROGLYCERIN 10 MG (0.4 MG/HR) PATCH.TD24 TD SCH (10:36)
[2017-06-28 10:44] LABS: BACTERIA,URINE 2+ /HPF; WBC,URINE >100 /HPF
[2017-06-28 12:26] LABS: ALANINE AMINOTRANSFERASE 26 U/L (9-52); ALBUMIN 3.1 g/dL (3.5-5.0); ALKALINE PHOSPHATASE 65 U/L (38-126); ANION GAP 9 (5-19); ASPARTATE AMINO TRANSFERASE 24 U/L (14-36); BILIRUBIN,DIRECT 0.7 mg/dL (0.0-0.4); BILIRUBIN,TOTAL 1.1 mg/dL (0.2-1.3); BLOOD UREA NITROGEN 61 mg/dL (7-20); CALCIUM 9.4 mg/dL (8.4-10.2); CARBON DIOXIDE 37 mmol/L (22-30); CHLORIDE 90 mmol/L (98-107); CREATININE RESULT 1.27 mg/dL (0.52-1.25); GLUCOSE 195 mg/dL (75-110); POTASSIUM 4.4 mmol/L (3.6-5.0); SODIUM 135.8 mmol/L (137-145); TOTAL PROTEIN 6.6 g/dL (6.3-8.2)
[2017-06-28] MEDS ORDERED: METOPROLOL SUCCINATE 25 MG TAB.SR.24H PO ONE (14:30)
[2017-06-28] MEDS ORDERED: LISINOPRIL 5 MG TABLET PO ONE (14:30)
[2017-06-28] MEDS ORDERED: FUROSEMIDE INJ/PF 40 MG/4 ML SDV IV ONE (14:30)
--- NOTE | 2017-06-28 15:02 | PROGRESS NOTE E ---
Progress Note NAME: RANDELL STERLING : 1935 AGE: 82Y DATE: 06/28/2017 ROOM: 608 SUBJECTIVE: Note, earlier the patient's blood pressure was low and hence the patient's lisinopril, metoprolol, and Lasix were held. At present the patient denies any chest pain or discomfort. Her shortness of breath is much better but she still has orthopnea. OBJECTIVE: VITAL SIGNS: She is afebrile with a temperature of 97.8 degrees Fahrenheit. At present, pulse was 88 beats per minute, blood pressure 102/63, respirations are 22 per minute, O2 sats are 98% on 4 L nasal cannula. HEENT: Head is atraumatic, normocephalic. Eyes: Pupils are equal, round, regular and reactive to light and accommodation. Extraocular movements are normal. There is no conjunctival pallor. There is no scleral icterus. ENT is negative. NECK: Supple. There is no lymphadenopathy. Carotids are equal. There is no bruit. There is no JVD. Trachea is central. LUNGS: Clear to auscultation and percussion. There are no rales or CHF. HEART: S1 and S2 are heard. There is no S3 gallop. There is no S4 gallop. There is a systolic murmur of mitral regurgitation and tricuspid regurgitation. There is no rub. ABDOMEN: Soft, obese, nontender. There is no hepatosplenomegaly. Bowel sounds are well heard. There are no tender areas or masses. EXTREMITIES: Femorals are diminished. There is no femoral bruit. Leg pulses are diminished. There is no pedal edema. There is no DVT or cellulitis. There is no clubbing or cyanosis. There is no calf tenderness. CENTRAL NERVOUS SYSTEM: The patient is conscious, awake, alert, oriented x3 with no focal deficits. PSYCHIATRIC: The patient's judgment and insight are intact. Her affect is normal. The patient's 24-hour intake is 550 mL, output is 1980 mL. LABORATORY DATA: The patient's sodium is 135.8, potassium 4.4, chloride 90, CO2 is 37. The patient's BUN is 61, creatinine is 1.27. GFR has come down to 40 mL, which is still chronic kidney disease stage III. Glucose is 105. The patient's liver function tests are normal except for direct bilirubin of 0.7. The patient's albumin is 3.1, total protein is 6.6. The patient's glucose is 172. IMPRESSION: 1. [id number] CONGESTIVE HEART FAILURE. At present seems to be compensated although the patient's renal function tests deteriorated. 2. HALZP-WZ-BOIAUCZ RENAL FAILURE. At present GFR is slightly reduced compared to yesterday. At present it is 40 mL per minute compared to 45 yesterday. 3. HYPERTENSION. Blood pressure is on the lower side. 4. ELEVATED TROPONIN WHICH HAS TRENDED DOWN. No evidence of non-ST elevation ND. 5. HISTORY OF CORONARY ARTERY DISEASE. No anginal symptoms. History of stent in the left circumflex. 6. DIET CONTROLLED DIABETES MELLITUS. 7. MODERATE TO SEVERE MITRAL REGURGITATION. 8. SEVERE TRICUSPID REGURGITATION. 9. SEVERE PULMONARY HYPERTENSION. 10. PAROXYSMAL ATRIAL FIBRILLATION. No recurrence. 11. LEFT BUNDLE BRANCH BLOCK PATTERN. 12. CARDIOMYOPATHY WITH SEVERELY REDUCED LV EJECTION FRACTION. 13. HYPOTHYROIDISM. Continue replacement. RECOMMENDATIONS: Discussed with the EP cardiology in [place] and also she asked me to talk to Dr. Webb the patient's mobility architect manager. I have discussed the case with him. I have given him the diagnosis and what the patient's treatment is. I also asked him if he thought if it was a good plan to replace her biventricular AICD on the patient. He said it probably is but he needs to see her. If the patient should improve and be discharged, we will have him see her as an outpatient. If the patient continues to have *------* urine output, then we will restart the patient's Levophed and then transfer the patient to [place] under Dr. Webb. Note, 45 minutes spent on the patient with more than 50% of the time spent on direct patient care. The patient's medications have been reviewed and adjusted. Medical decision making is of highly complex nature. We will follow with you. Thanking you. DICTATING PHYSICIAN: CORRY PIMENTEL M.D. [id number] PHY#: [id number] ID: [id number] JOB#: [id number] ACCT: [id number] cc: >
--- NOTE | 2017-06-28 18:49 | PDOC PROGRESS REPORT ---
Subjective Progress Note for:: 06/28/17 Subjective:: Patient of pain down there. Nurse reports that urine is cloudy and foul- smelling ROS All organ systems evaluated and negative except as in subjective All all significant laboratories and diagnostics have been reviewed Reason For Visit: HEART FAILURE Physical Exam Vital Signs: Temp Pulse Resp BP Pulse Ox 99.1 F 82 18 122/68 92 06/27/17 23:45 06/28/17 04:20 06/28/17 04:20 06/28/17 02:21 06/28/17 03:00 Intake & Output 06/26/17 06/27/17 06/28/17 06:59 06:59 06:59 Intake Total 947 559 550 Output Total 1790 1810 1880 Balance -843 -0921 -7460 Weight 86.3 kg 86.2 kg General appearance: PRESENT: no acute distress, obese Head exam: PRESENT: atraumatic, normocephalic Eye exam: PRESENT: EOMI, PERRLA Ear exam: PRESENT: normal external ear exam Mouth exam: PRESENT: moist Neck exam: PRESENT: full ROM. ABSENT: JVD, tenderness Respiratory exam: PRESENT: clear to auscultation ignacio Cardiovascular exam: PRESENT: RRR, systolic murmur. ABSENT: diastolic murmur Vascular exam: PRESENT: normal capillary refill GI/Abdominal exam: PRESENT: normal bowel sounds, soft. ABSENT: distended, tenderness Extremities exam: PRESENT: pedal edema. ABSENT: joint swelling, tenderness Musculoskeletal exam: PRESENT: full ROM Neurological exam: PRESENT: alert, oriented to person, oriented to place Psychiatric exam: PRESENT: appropriate affect, normal mood Results Laboratory Results: 06/26/17 05:45 06/27/17 04:00 06/18/17 06/18/17 06/18/17 01:22 01:22 06:40 Creatine Kinase 85 73 CK-MB (CK-2) 2.27 Troponin I 0.067 06/18/17 06/18/17 06/18/17 06:40 11:59 11:59 Creatine Kinase 73 CK-MB (CK-2) 1.97 2.20 Troponin I 0.073 0.074 06/19/17 06/19/17 06/20/17 04:19 10:30 07:30 Creatine Kinase CK-MB (CK-2) Troponin I 0.279 0.183 0.109 Impressions: Renal Ultrasound 06/20/17 00:00 IMPRESSION: No hydronephrosis. Chest X-Ray 06/24/17 06:00 IMPRESSION: Cardiomegaly. Mild interstitial edema. Assessment & Plan - Diagnosis (1) Mitral regurgitation Qualifiers: Cardiac valve disease etiology: etiology unspecified Qualified Code(s): I34.0 - Nonrheumatic mitral (valve) insufficiency Is this a current diagnosis for this admission?: Yes Plan: Likely culprit of presentation (2) Acute on chronic congestive heart failure Qualifiers: Congestive heart failure type: systolic Qualified Code(s): I50.23 - Acute on chronic systolic (congestive) heart failure Is this a current diagnosis for this admission?: Yes Plan: Managed per cardiology. Improved. Strong cardiorenal component. I had been introducing the concept of hospice on this patient. She states that she is ready to (3) Acute on chronic renal failure Qualifiers: Acute renal failure type: unspecified Chronic kidney disease stage: stage 3 (moderate) Qualified Code(s): N17.9 - Acute kidney failure, unspecified; N18.3 - Chronic kidney disease, stage 3 (moderate); N18.3 - Chronic kidney disease, stage 3 (moderate) Is this a current diagnosis for this admission?: Yes Plan: Deteriorating and cardiorenal (4) Anemia in chronic kidney disease Is this a current diagnosis for this admission?: Yes Plan: Stable (5) Pulmonary hypertension Is this a current diagnosis for this admission?: Yes Plan: Due to valvular disease (6) Constipation Qualifiers: Constipation type: slow transit constipation Qualified Code(s): K59.01 - Slow transit constipation Is this a current diagnosis for this admission?: Yes Plan: Resolved (7) Debility Is this a current diagnosis for this admission?: Yes Plan: May benefit from physical therapy which have been ordered but she remains in ICU (8) UTI (urinary tract infection) due to urinary indwelling catheter Qualifiers: Indwelling urinary catheter type: indwelling urethral catheter Is this a current diagnosis for this admission?: Yes Plan: Discontinue Wise catheter. Send urine for urinalysis and urine culture. We will start her empirically on Rocephin IV - Time Time Spent with patient: 15-24 minutes Medications reviewed and adjusted accordingly: Yes Anticipated discharge: Hospice Within: Other - Inpatient Certification Based on my medical assessment, after consideration of the patient's comorbidities, presenting symptoms, or acuity I expect that the services needed warrant INPATIENT care.: Yes I certify that my determination is in accordance with my understanding of Medicare's requirements for reasonable and necessary INPATIENT services [42 CFR 412.3e].: Yes Medical Necessity: Need for IV Antibiotics
[2017-06-28] MEDS: ATORVASTATIN CALCIUM 80 MG TABLET PO SCH (22:07)
[2017-06-28] MEDS: MONTELUKAST SODIUM 10 MG TABLET PO SCH (22:07)
[2017-06-28] MEDS: GABAPENTIN 300 MG CAPSULE PO SCH (22:07)
[2017-06-29] MEDS: METOCLOPRAMIDE HCL INJ/PF 10 MG/2 ML SDV IV SCH ×5 (00:20→23:44)
[2017-06-29 04:27] LABS: ABSOLUTE BASOPHILS # (AUTO) 0.1 10^3/uL (0.0-0.2); ABSOLUTE EOSINOPHILS # (AUTO) 0.3 10^3/uL (0.0-0.6); ABSOLUTE LYMPHOCYTES (AUTO) 0.6 10^3/uL (0.5-4.7); ABSOLUTE MONOCYTES (AUTO) 0.9 10^3/uL (0.1-1.4); ABSOLUTE NEUT (AUTO) 6.2 10^3/uL (1.7-8.2); BASOPHILS % (AUTO) 0.8 % (0-2); HEMATOCRIT 37.6 % (36.0-47.0); HEMOGLOBIN 12.4 g/dL (12.0-15.5); HGB HCT DIFFERENCE -0.4; LYMPHOCYTES % (AUTO) 7.6 % (13-45); MEAN CORPUSCULAR HEMOGLOBIN 33.4 pg (27.0-33.4); MEAN CORPUSCULAR HGB CONC 32.8 g/dL (32.0-36.0); MEAN CORPUSCULAR VOLUME 102 fl (80-97); MONOCYTES % (AUTO) 11.1 % (3-13); RED CELL DISTRIBUTION WIDTH 15.8 % (11.5-14.0); SEGMENTED NEUTROPHILS % (AUTO) 76.5 % (42-78); WHITE BLOOD COUNT 8.2 10^3/uL (4.0-10.5)
[2017-06-29 04:53] LABS: ANION GAP 6 (5-19); BLOOD UREA NITROGEN 69 mg/dL (7-20); CALCIUM 9.2 mg/dL (8.4-10.2); CARBON DIOXIDE 38 mmol/L (22-30); CHLORIDE 93 mmol/L (98-107); CREATININE RESULT 1.36 mg/dL (0.52-1.25); GLUCOSE 88 mg/dL (75-110); MAGNESIUM 1.9 mg/dL (1.6-2.3); POTASSIUM 4.2 mmol/L (3.6-5.0); SODIUM 136.9 mmol/L (137-145)
[2017-06-29] MEDS: LEVOTHYROXINE SODIUM 0.025 MG TABLET PO SCH (05:52)
[2017-06-29] MEDS: LEVOTHYROXINE SODIUM 0.1 MG TABLET PO SCH (05:52)
[2017-06-29] MEDS: HYDRALAZINE HCL 10 MG TABLET PO SCH ×2 (05:53→13:47)
--- NOTE | 2017-06-29 08:49 | PDOC PROGRESS REPORT ---
Subjective Progress Note for:: 06/29/17 Subjective:: Unable to obtain since somnolent ROS All organ systems evaluated and negative except as in subjective All all significant laboratories and diagnostics have been reviewed Reason For Visit: HEART FAILURE Physical Exam Vital Signs: Temp Pulse Resp BP Pulse Ox 98.2 F 79 25 H 95/49 L 97 06/29/17 00:00 06/28/17 22:00 06/29/17 02:30 06/29/17 02:30 06/29/17 02:30 Intake & Output 06/27/17 06/28/17 06/29/17 06:59 06:59 06:59 Intake Total 559 550 654 Output Total 1818 0755 820 Balance -7904 -3729 -817 Weight 86.2 kg 83.4 kg General appearance: PRESENT: no acute distress, obese, other - Somnolent Head exam: PRESENT: atraumatic, normocephalic Eye exam: PRESENT: EOMI, PERRLA Ear exam: PRESENT: normal external ear exam Mouth exam: ABSENT: moist, neck supple Neck exam: ABSENT: JVD Respiratory exam: PRESENT: clear to auscultation ignacio Vascular exam: PRESENT: normal capillary refill GI/Abdominal exam: PRESENT: normal bowel sounds, soft. ABSENT: tenderness Extremities exam: PRESENT: pedal edema Neurological exam: PRESENT: alert, oriented to person, oriented to place, oriented to time Psychiatric exam: PRESENT: other - Somnolent Results Laboratory Results: 06/26/17 05:45 06/28/17 11:30 06/28/17 06/28/17 10:03 11:30 Sodium 135.8 L Potassium 4.4 Chloride 90 L Carbon Dioxide 37 H Anion Gap 9 BUN 61 H Creatinine 1.27 H Est GFR ( Amer) 49 L Est GFR (Non-Af Amer) 40 L Glucose 195 H Calcium 9.4 Total Bilirubin 1.1 AST 24 ALT 26 Alkaline Phosphatase 65 Total Protein 6.6 Albumin 3.1 L Urine Color RAZA Urine Appearance CLOUDY Urine pH 5.0 Ur Specific [place] 1.011 Urine Protein 30 H Urine Glucose (UA) NEGATIVE Urine Ketones NEGATIVE Urine Blood MODERATE H Urine Nitrite NEGATIVE Ur Leukocyte Esterase LARGE H Ur Squamous Epith Cells MODERATE 06/18/17 06/18/17 06/18/17 01:22 01:22 06:40 Creatine Kinase 85 73 CK-MB (CK-2) 2.27 Troponin I 0.067 06/18/17 06/18/17 06/18/17 06:40 11:59 11:59 Creatine Kinase 73 CK-MB (CK-2) 1.97 2.20 Troponin I 0.073 0.074 06/19/17 06/19/17 06/20/17 04:19 10:30 07:30 Creatine Kinase CK-MB (CK-2) Troponin I 0.279 0.183 0.109 Impressions: Renal Ultrasound 06/20/17 00:00 IMPRESSION: No hydronephrosis. Chest X-Ray 06/24/17 06:00 IMPRESSION: Cardiomegaly. Mild interstitial edema. Assessment & Plan - Diagnosis (1) Mitral regurgitation Qualifiers: Cardiac valve disease etiology: etiology unspecified Qualified Code(s): I34.0 - Nonrheumatic mitral (valve) insufficiency Is this a current diagnosis for this admission?: Yes Plan: Likely culprit of presentation (2) Acute on chronic congestive heart failure Qualifiers: Congestive heart failure type: systolic Qualified Code(s): I50.23 - Acute on chronic systolic (congestive) heart failure Is this a current diagnosis for this admission?: Yes Plan: Managed per cardiology. Improved. Strong cardiorenal component. I had been introducing the concept of hospice on this patient. She states that she is ready to (3) Acute on chronic renal failure Qualifiers: Acute renal failure type: unspecified Chronic kidney disease stage: stage 3 (moderate) Qualified Code(s): N17.9 - Acute kidney failure, unspecified; N18.3 - Chronic kidney disease, stage 3 (moderate); N18.3 - Chronic kidney disease, stage 3 (moderate) Is this a current diagnosis for this admission?: Yes Plan: Deteriorating and cardiorenal (4) Anemia in chronic kidney disease Is this a current diagnosis for this admission?: Yes Plan: Stable (5) Pulmonary hypertension Is this a current diagnosis for this admission?: Yes Plan: Due to valvular disease (6) Constipation Qualifiers: Constipation type: slow transit constipation Qualified Code(s): K59.01 - Slow transit constipation Is this a current diagnosis for this admission?: Yes Plan: Resolved (7) Debility Is this a current diagnosis for this admission?: Yes Plan: May benefit from physical therapy which have been ordered but she remains in ICU (8) UTI (urinary tract infection) due to urinary indwelling catheter Qualifiers: Indwelling urinary catheter type: indwelling urethral catheter Is this a current diagnosis for this admission?: Yes Plan: Discontinue Wise catheter. Urine culture pending. Rocephin IV had been started - Time Time Spent with patient: Less than 15 minutes Medications reviewed and adjusted accordingly: Yes Anticipated discharge: Hospice Within: Other - Inpatient Certification Based on my medical assessment, after consideration of the patient's comorbidities, presenting symptoms, or acuity I expect that the services needed warrant INPATIENT care.: Yes I certify that my determination is in accordance with my understanding of Medicare's requirements for reasonable and necessary INPATIENT services [42 CFR 412.3e].: Yes Medical Necessity: Need Close Monitoring Due to Risk of Patient Decompensation
[2017-06-29] MEDS: CEFTRIAXONE 1 GM/D5W RTU 1 GM/50 ML RTUPB IV SCH (09:12)
[2017-06-29] MEDS: POTASSIUM CHLORIDE 20 MEQ/15 ML UDCUP PO SCH (09:17)
[2017-06-29] MEDS: METOLAZONE 2.5 MG TABLET PO SCH (09:17)
[2017-06-29] MEDS: HEPARIN SOD (PORCINE) 5,000 UNIT/ML 1 ML SYRINGE SUBCUT SCH ×2 (09:18→21:11)
[2017-06-29] MEDS: DOCUSATE SODIUM 100 MG CAPSULE PO SCH (09:19)
[2017-06-29] MEDS: METOPROLOL SUCCINATE 25 MG TAB.SR.24H PO SCH (09:31)
[2017-06-29] MEDS: POLYETHYLENE GLYCOL 3350 POWDER 17 GM/1 PACKET PO SCH (09:31)
[2017-06-29] MEDS: IPRATROPIUM/ALBUTEROL 0.5-2.5 MG/3 ML AMPUL NEB PRN ×2 (11:35→20:32)
[2017-06-29] MEDS: LISINOPRIL 10 MG TABLET PO SCH ×2 (11:47→21:12)
[2017-06-29] MEDS: FUROSEMIDE INJ/PF 40 MG/4 ML SDV IV SCH ×2 (11:47→21:12)
[2017-06-29] MEDS: NITROGLYCERIN 10 MG (0.4 MG/HR) PATCH.TD24 TD SCH (14:38)
[2017-06-29] MEDS: NORMAL SALINE INJ/PF 0.9% 10 ML SDV IV PRN (14:41)
[2017-06-29] MEDS ORDERED: FUROSEMIDE INJ/PF 40 MG/4 ML SDV IV ONE (15:00)
--- NOTE | 2017-06-29 15:26 | PROGRESS NOTE E ---
Progress Note NAME: RANDELL STERLING : 1935 AGE: 82Y DATE: ROOM: 608 SUBJECTIVE: The patient states she has no shortness of breath. She still has orthopnea. There is no PND. There is no leg edema. There is no arrhythmia seen on the monitor. There is no recurrence of atrial fibrillation. There are no anginal symptoms. The patient denies any shortness of breath or cough or sputum production. OBJECTIVE: GENERAL: On examination, the patient is moderately obese, in no acute distress. VITAL SIGNS: She is afebrile with a temperature 97.2 degrees Fahrenheit, pulse is 78 beats per minute, blood pressure 113/89, respirations are 24 per minute, O2 sats are 99% on 4L nasal cannula. HEAD: Atraumatic, normocephalic. EYES: Pupils are equal, round, regular, reactive to light and accommodation. Extraocular movements normal. There is no conjunctival pallor. There is no scleral icterus. ENT: Negative. NECK: Supple. There is no lymphadenopathy. Carotids are equal. There is no bruit. There is no JVD. Trachea is central. LUNGS: Clear to auscultation and percussion. HEART: S1 and S2 are heard. There is no S3 gallop. There is no S4 gallop. There is a systolic murmur of mitral regurgitation and tricuspid regurgitation present. There is no rub. ABDOMEN: Soft, obese, nontender. There is no hepatosplenomegaly. Bowel sounds are well heard. There are no tender areas or masses. EXTREMITIES: Femorals are diminished. There are no femoral bruits. Leg pulses are diminished. There is no pedal edema. There is no DVT or cellulitis. There is no clubbing or cyanosis. CENTRAL NERVOUS SYSTEM: The patient is conscious, awake, alert, oriented x3 with no focal deficit. PSYCHIATRIC: The patient's judgement and insight are intact. Her affect is normal. The patient's 24-hour intake is 654 mL. Output is 920 mL. LABORATORY DATA: The patient's white count is 8200, hemoglobin is 12.4, hematocrit is 37.6 and platelet count is 193,000. The patient's sodium is 136.9, potassium 4.2, chloride 96, CO2 is 38. The patient's BUN is 69, creatinine is 1.36. GFR has reduced to 37 mL. It is chronic kidney disease stage 3. The patient's glucose is 150, calcium is 9.2, magnesium is 1.9. IMPRESSION: 1. ACUTE ON CHRONIC SYSTOLIC HEART FAILURE. At present, seems to be compensated. 2. ACUTE ON CHRONIC RENAL FAILURE. At present, GFR has reduced to 37 mL from 40 mL yesterday. This is chronic kidney disease stage 3. 3. HYPERTESION. Blood pressure is stable. 4. ELEVATED TROPONIN I, which has trended down. No evidence of a non-ST elevation SD. 5. HISTORY OF CORONARY ARTERY DISEASE. No anginal symptoms. HISTORY OF STENT IN THE LEFT CIRCUMFLEX. 6. DIET-CONTROLLED DIABETES MELLITUS. 7. MODERATE TO SEVERE MITRAL REGURGITATION. 8. SEVERE TRICUSPID REGURGITATION. 9. SEVERE PULMONARY HYPERTENSION. 10. PAROXYSMAL ATRIAL FIBRILLATION with no recurrence. 11. LEFT BUNDLE BRANCH BLOCK PATTERN. 12. CARDIOMYOPATHY WITH SEVERELY REDUCED LV EJECTION FRACTION. 13. HYPOTHYROIDISM. Continue replacement. RECOMMENDATION: Continue the patient's lisinopril and beta ilan. Continue metolazone. Continue Lasix at 40 mg IV q.12 hours. We will increase it if the patient's urine output should fall off. PROGNOSIS: The patient's prognosis is guarded. TIME SPENT: Note, 30 minutes spent on this patient with more than 50% of the time spent on direct patient care. The patient's medications have been reviewed. The patient's medical decision making is still of a highly complex nature. DICTATING PHYSICIAN: CORRY PIMENTEL M.D. [id number] LIONELY#: [id number] ID: [id number] JOB#: [id number] ACCT: [id number] cc: >
[2017-06-29] MEDS: TAMSULOSIN HCL 0.4 MG CAP.SR.24H PO SCH (19:35)
[2017-06-29] MEDS: ATORVASTATIN CALCIUM 80 MG TABLET PO SCH (21:09)
[2017-06-29] MEDS: GABAPENTIN 300 MG CAPSULE PO SCH (21:10)
[2017-06-29] MEDS: MONTELUKAST SODIUM 10 MG TABLET PO SCH (21:10)
[2017-06-30] MEDS: IPRATROPIUM/ALBUTEROL 0.5-2.5 MG/3 ML AMPUL NEB PRN ×4 (03:43→20:48)
[2017-06-30 04:40] LABS: ANION GAP 10 (5-19); BLOOD UREA NITROGEN 74 mg/dL (7-20); CALCIUM 9.1 mg/dL (8.4-10.2); CARBON DIOXIDE 36 mmol/L (22-30); CHLORIDE 91 mmol/L (98-107); CREATININE RESULT 1.25 mg/dL (0.52-1.25); GLUCOSE 141 mg/dL (75-110); POTASSIUM 4.1 mmol/L (3.6-5.0); SODIUM 136.8 mmol/L (137-145)
[2017-06-30] MEDS: FUROSEMIDE INJ/PF 40 MG/4 ML SDV IV SCH ×3 (05:56→22:26)
[2017-06-30] MEDS: METOCLOPRAMIDE HCL INJ/PF 10 MG/2 ML SDV IV SCH ×3 (05:56→17:31)
[2017-06-30] MEDS: LEVOTHYROXINE SODIUM 0.025 MG TABLET PO SCH (05:57)
[2017-06-30] MEDS: LEVOTHYROXINE SODIUM 0.1 MG TABLET PO SCH (05:57)
--- NOTE | 2017-06-30 07:55 | PDOC PROGRESS REPORT ---
Subjective Progress Note for:: 06/30/17 Subjective:: No complaints. Discussed possibility of hospice. States that her family wants her to go to rehab. ROS All organ systems evaluated and negative except as in subjective All all significant laboratories and diagnostics have been reviewed Reason For Visit: HEART FAILURE Physical Exam Vital Signs: Temp Pulse Resp BP Pulse Ox 97.7 F 74 19 120/62 98 06/30/17 06:00 06/30/17 04:09 06/30/17 06:00 06/30/17 04:36 06/30/17 06:00 Intake & Output 06/28/17 06/29/17 06/30/17 06:59 06:59 06:59 Intake Total 550 654 630 Output Total 6507 587 7766 Balance -9880 -266 -920 Weight 83.4 kg 85.7 kg 84 kg General appearance: PRESENT: no acute distress, cooperative, obese Head exam: PRESENT: atraumatic, normocephalic Eye exam: PRESENT: EOMI, PERRLA Ear exam: PRESENT: normal external ear exam Mouth exam: PRESENT: moist Neck exam: PRESENT: full ROM. ABSENT: JVD, tenderness Respiratory exam: PRESENT: clear to auscultation ignacio Cardiovascular exam: PRESENT: RRR. ABSENT: diastolic murmur, rubs, systolic murmur Vascular exam: PRESENT: normal capillary refill GI/Abdominal exam: PRESENT: normal bowel sounds, soft. ABSENT: tenderness Extremities exam: PRESENT: pedal edema. ABSENT: joint swelling Neurological exam: PRESENT: alert, oriented to person, oriented to place Psychiatric exam: PRESENT: appropriate affect, normal mood Skin exam: PRESENT: normal color Results Laboratory Results: 06/29/17 04:10 06/30/17 04:13 06/30/17 04:13 Sodium 136.8 L Potassium 4.1 Chloride 91 L Carbon Dioxide 36 H Anion Gap 10 BUN 74 H Creatinine 1.25 Est GFR ( Amer) 50 L Est GFR (Non-Af Amer) 41 L Glucose 141 H Calcium 9.1 06/18/17 06/18/17 06/18/17 01:22 01:22 06:40 Creatine Kinase 85 73 CK-MB (CK-2) 2.27 Troponin I 0.067 06/18/17 06/18/17 06/18/17 06:40 11:59 11:59 Creatine Kinase 73 CK-MB (CK-2) 1.97 2.20 Troponin I 0.073 0.074 06/19/17 06/19/17 06/20/17 04:19 10:30 07:30 Creatine Kinase CK-MB (CK-2) Troponin I 0.279 0.183 0.109 Impressions: Renal Ultrasound 06/20/17 00:00 IMPRESSION: No hydronephrosis. Chest X-Ray 06/24/17 06:00 IMPRESSION: Cardiomegaly. Mild interstitial edema. Assessment & Plan - Diagnosis (1) Mitral regurgitation Qualifiers: Cardiac valve disease etiology: etiology unspecified Qualified Code(s): I34.0 - Nonrheumatic mitral (valve) insufficiency Is this a current diagnosis for this admission?: Yes Plan: Likely culprit of presentation (2) Acute on chronic congestive heart failure Qualifiers: Congestive heart failure type: systolic Qualified Code(s): I50.23 - Acute on chronic systolic (congestive) heart failure Is this a current diagnosis for this admission?: Yes Plan: Managed per cardiology. Improved. Strong cardiorenal component. I had been introducing the concept of hospice on this patient. She states that she is ready to . Today relates that her family wants her to go to rehab (3) Acute on chronic renal failure Qualifiers: Acute renal failure type: unspecified Chronic kidney disease stage: stage 3 (moderate) Qualified Code(s): N17.9 - Acute kidney failure, unspecified; N18.3 - Chronic kidney disease, stage 3 (moderate); N18.3 - Chronic kidney disease, stage 3 (moderate) Is this a current diagnosis for this admission?: Yes Plan: Stabilizing and strong cardiorenal (4) Anemia in chronic kidney disease Is this a current diagnosis for this admission?: Yes Plan: Stable (5) Pulmonary hypertension Is this a current diagnosis for this admission?: Yes Plan: Due to valvular disease (6) Constipation Qualifiers: Constipation type: slow transit constipation Qualified Code(s): K59.01 - Slow transit constipation Is this a current diagnosis for this admission?: Yes Plan: Continue present treatment (7) Debility Is this a current diagnosis for this admission?: Yes Plan: May benefit from physical therapy which have been ordered but she remains in ICU (8) UTI (urinary tract infection) due to urinary indwelling catheter Qualifiers: Indwelling urinary catheter type: indwelling urethral catheter Is this a current diagnosis for this admission?: Yes Plan: Wise catheter.still in place despite ordering to discontinue. Urine culture grew E coli which is pansensitive. Cotn[place] rocephin IV. - Time Time Spent with patient: Less than 15 minutes Medications reviewed and adjusted accordingly: Yes Anticipated discharge: Other - uncertain at this time Within: Other - Inpatient Certification Based on my medical assessment, after consideration of the patient's comorbidities, presenting symptoms, or acuity I expect that the services needed warrant INPATIENT care.: Yes I certify that my determination is in accordance with my understanding of Medicare's requirements for reasonable and necessary INPATIENT services [42 CFR 412.3e].: Yes Medical Necessity: Need Close Monitoring Due to Risk of Patient Decompensation
[2017-06-30] MEDS: POTASSIUM CHLORIDE 20 MEQ/15 ML UDCUP PO SCH (09:24)
[2017-06-30] MEDS: HEPARIN SOD (PORCINE) 5,000 UNIT/ML 1 ML SYRINGE SUBCUT SCH ×2 (09:24→22:25)
[2017-06-30] MEDS: METOPROLOL SUCCINATE 25 MG TAB.SR.24H PO SCH (09:24)
[2017-06-30] MEDS: CEFTRIAXONE 1 GM/D5W RTU 1 GM/50 ML RTUPB IV SCH (09:25)
[2017-06-30] MEDS: METOLAZONE 2.5 MG TABLET PO SCH (09:25)
[2017-06-30] MEDS: DOCUSATE SODIUM 100 MG CAPSULE PO SCH (09:25)
[2017-06-30] MEDS: POLYETHYLENE GLYCOL 3350 POWDER 17 GM/1 PACKET PO SCH (09:33)
[2017-06-30] MEDS: NITROGLYCERIN 10 MG (0.4 MG/HR) PATCH.TD24 TD SCH (11:07)
[2017-06-30] MEDS: LISINOPRIL 10 MG TABLET PO SCH ×2 (13:09→22:28)
[2017-06-30] MEDS: TAMSULOSIN HCL 0.4 MG CAP.SR.24H PO SCH (17:31)
--- NOTE | 2017-06-30 20:49 | PROGRESS NOTE E ---
Progress Note NAME: RANDELL STERLING : 1935 AGE: 82Y DATE: 06/30/2017 ROOM: 608 SUBJECTIVE: Patient was seen earlier this morning. The patient denies any chest pain or discomfort. She does have orthopnea, but no shortness of breath. There is no complaint of atrial fibrillation. The patient has no chest pain or discomfort. There is no pedal edema. There are no TIA or CVA symptoms. There is no ventricular arrhythmia seen. The patient denies any palpitations or syncope or dizziness. OBJECTIVE: GENERAL: On examination, the patient is moderately obese, in no acute distress. VITAL SIGNS: She is afebrile, with a temperature of 97.5 degrees Fahrenheit. Pulse is 74 beats per minute, blood pressure is 99/50, respirations are 23 per minute. O2 sat is 100% on 4 liters nasal cannula. HEENT: Head is atraumatic, normocephalic. Eyes: Pupils are equal, round, regular, reactive to light and accommodation. There is no conjunctival pallor. There is no scleral icterus. ENT is negative. NECK: Supple. There is no lymphadenopathy. Carotids are equal. There is no bruit. There is no JVD. Trachea is central. LUNGS: Clear to auscultation and percussion. HEART: S1, S2 are heard. There is no S3 gallop. There is no S4 gallop. There is a systolic murmur with mitral regurgitation and tricuspid regurgitation present. There is no rub. ABDOMEN: Soft, obese, nontender. There is no hepatosplenomegaly. Bowel sounds are well-heard. There are no tender areas or masses. EXTREMITIES: Femorals are diminished. There are no femoral bruits. Leg pulses are diminished. There is no pedal edema. There is no DVT or cellulitis. There is no clubbing or cyanosis. CENTRAL NERVOUS SYSTEM: The patient is conscious, awake, alert, oriented x3, with no focal deficit. PSYCHIATRIC: The patient's judgment and insight are intact. Her affect is normal. The patient's 24-hour intake is 639 mL, output is 1550 mL. The patient's white count is 8200, hemoglobin is 12.4, hematocrit is 37.6, platelet count is 193,000. The patient's sodium is 136.8, potassium 4.1, chloride 91, CO2 is 36. The patient's BUN is 74, creatinine is 1.25. GFR is improved to 41 mL. The patient's glucose is 141 and her calcium is 9.1. IMPRESSION: 1. ACUTE ON CHRONIC SYSTOLIC RIGHT AND LEFT HEART FAILURE. 2. ACUTE ON CHRONIC RENAL FAILURE. Renal function is slightly improved at present, 41 mL, which is chronic kidney disease stage III, which is improved from 37 mL yesterday. 3. HYPERTENSION. Blood pressure is stable. Patient off inotropes. 4. ELEVATED TROPONIN I, WHICH HAS TRENDED DOWN. No evidence of non-ST elevation myocardial infarction. 5. HISTORY OF CORONARY ARTERY DISEASE. No anginal symptoms. History of stent in the left circumflex. 6. DIET-CONTROLLED DIABETES MELLITUS. 7. MODERATE TO SEVERE MITRAL REGURGITATION. 8. SEVERE TRICUSPID REGURGITATION. 9. SEVERE PULMONARY HYPERTENSION. 10. PAROXYSMAL ATRIAL FIBRILLATION WITH NO RECURRENCE. 11. LEFT BUNDLE BRANCH BLOCK PATTERN. 12. *------* 13. HYPOTHYROIDISM. RECOMMENDATIONS: Will stop the patient's hydralazine, increase the patient's lisinopril, continue the patient's beta ilan. The patient is on IV Lasix and p.o. metolazone. Will increase it to p.o. Lasix 18 mg p.o. b.i.d. and metolazone 2.5 mg p.o. b.i.d., and have the patient ambulate with the help of physical therapy. Note, 35 minutes spent on this patient, with more than 50% of the time spent on direct patient care, and also reviewing the patient's medication and adjusting the patient's medication. Medical decision making is of a highly complex nature. I discussed with other caregiving providers on the case. Will follow with you. DICTATING PHYSICIAN: CORRY PIMENTEL M.D. [id number] PHY#: [id number] ID: [id number] JOB#: [id number] ACCT: [id number] cc:CORRY PIMENTEL M.D. >
[2017-06-30] MEDS: ATORVASTATIN CALCIUM 80 MG TABLET PO SCH (22:26)
[2017-06-30] MEDS: GABAPENTIN 300 MG CAPSULE PO SCH (22:26)
[2017-06-30] MEDS: MONTELUKAST SODIUM 10 MG TABLET PO SCH (22:27)
[2017-07-01] MEDS: METOCLOPRAMIDE HCL INJ/PF 10 MG/2 ML SDV IV SCH ×5 (00:32→23:19)
[2017-07-01] MEDS: FUROSEMIDE INJ/PF 40 MG/4 ML SDV IV SCH (05:12)
[2017-07-01] MEDS: LEVOTHYROXINE SODIUM 0.1 MG TABLET PO SCH (05:13)
[2017-07-01] MEDS: LEVOTHYROXINE SODIUM 0.025 MG TABLET PO SCH (05:13)
[2017-07-01 05:53] LABS: ABSOLUTE BASOPHILS # (AUTO) 0.1 10^3/uL (0.0-0.2); ABSOLUTE EOSINOPHILS # (AUTO) 0.5 10^3/uL (0.0-0.6); ABSOLUTE LYMPHOCYTES (AUTO) 0.5 10^3/uL (0.5-4.7); ABSOLUTE MONOCYTES (AUTO) 0.9 10^3/uL (0.1-1.4); ABSOLUTE NEUT (AUTO) 6.1 10^3/uL (1.7-8.2); BASOPHILS % (AUTO) 1.2 % (0-2); EOSINOPHILS % (AUTO) 6.7 % (0-6); HEMATOCRIT 37.9 % (36.0-47.0); HEMOGLOBIN 12.6 g/dL (12.0-15.5); HGB HCT DIFFERENCE -0.1; LYMPHOCYTES % (AUTO) 6.3 % (13-45); MEAN CORPUSCULAR HEMOGLOBIN 33.4 pg (27.0-33.4); MEAN CORPUSCULAR HGB CONC 33.2 g/dL (32.0-36.0); MEAN CORPUSCULAR VOLUME 101 fl (80-97); MONOCYTES % (AUTO) 10.5 % (3-13); RED BLOOD COUNT 3.76 10^6/uL (3.72-5.28); RED CELL DISTRIBUTION WIDTH 15.4 % (11.5-14.0); SEGMENTED NEUTROPHILS % (AUTO) 75.3 % (42-78); WHITE BLOOD COUNT 8.2 10^3/uL (4.0-10.5)
--- NOTE | 2017-07-01 06:18 | RADIOLOGY REPORT (SQ) ---
EXAM DESCRIPTION: CHEST SINGLE VIEW CLINICAL HISTORY: 82 years, Female, chf COMPARISON: 06/24/2017. FINDINGS: Moderate central pulmonary edema pattern, small opacity-effusion of the right costophrenic angle, left internal jugular central line tip at the right atrium; consider 5.5 cm retraction, moderate enlargement of the cardiac silhouette, 2.4 cm sclerotic lesion of the right scapula, sclerotic lesion of the left humeral head, and no significant interval change. IMPRESSION: No significant interval change. 2011 [employer]- All Rights Reserved
[2017-07-01] MEDS ORDERED: METOLAZONE 2.5 MG TABLET PO ONE (11:30)
[2017-07-01] MEDS: DOCUSATE SODIUM 100 MG CAPSULE PO SCH (12:28)
[2017-07-01] MEDS: POTASSIUM CHLORIDE 20 MEQ/15 ML UDCUP PO SCH (12:28)
[2017-07-01] MEDS: METOPROLOL SUCCINATE 25 MG TAB.SR.24H PO SCH (12:28)
[2017-07-01] MEDS: CEFTRIAXONE 1 GM/D5W RTU 1 GM/50 ML RTUPB IV SCH (12:29)
[2017-07-01] MEDS: POLYETHYLENE GLYCOL 3350 POWDER 17 GM/1 PACKET PO SCH (12:30)
[2017-07-01] MEDS: NITROGLYCERIN 10 MG (0.4 MG/HR) PATCH.TD24 TD SCH (12:30)
[2017-07-01] MEDS: HEPARIN SOD (PORCINE) 5,000 UNIT/ML 1 ML SYRINGE SUBCUT SCH ×2 (12:31→21:38)
[2017-07-01] MEDS: LISINOPRIL 10 MG TABLET PO SCH ×2 (12:32→21:37)
[2017-07-01] MEDS: IPRATROPIUM/ALBUTEROL 0.5-2.5 MG/3 ML AMPUL NEB PRN ×2 (13:42→20:13)
--- NOTE | 2017-07-01 14:33 | PDOC PROGRESS REPORT ---
Subjective Progress Note for:: 07/01/17 Subjective:: The patient is an 82-year-old female who was admitted to the hospital with congestive heart failure. This appears to be secondary to volume overload from chronic kidney disease and mitral regurgitation. The patient is currently being managed by cardiology. Nephrology has followed the patient previously but recently signed off due to stability of renal function. Today, the patient told me that her breathing is about at baseline. Prior to this hospitalization the patient was living independently at home. She and her family want to attempt outpatient SNF for rehabilitation when she is more stable. Reason For Visit: HEART FAILURE Physical Exam Vital Signs: Temp Pulse Resp BP Pulse Ox 99.0 F 79 18 102/65 99 07/01/17 00:00 07/01/17 13:52 07/01/17 13:52 06/30/17 16:21 07/01/17 13:52 Intake & Output 06/30/17 07/01/17 07/02/17 06:59 06:59 06:59 Intake Total 630 653 Output Total 1550 2690 800 Balance -920 -2037 -800 Weight 84 kg 83 kg Additional comments: The patient appears to be elderly and frail. She does not appear to be in good general health. Her cognition and mentation are normal and appropriate. Her facial appearance is normal. Her mucous membranes are moist. Her lungs are diminished with Rales in the posterior lung stokes at the bases. Her cardiac exam is regular. I do not appreciate any murmurs at the left upper sternal border. I do not appreciate gallops or rubs. The abdomen is obese but soft. Bowel sounds are noted. The lower extremities demonstrate trace but symmetrical edema. The skin is warm, dry and intact without lesions or rashes. Results Laboratory Results: 07/01/17 05:30 06/30/17 04:13 07/01/17 05:30 WBC 8.2 RBC 3.76 Hgb 12.6 Hct 37.9 MCV 101 H MCH 33.4 MCHC 33.2 RDW 15.4 H Plt Count 236 Seg Neutrophils % 75.3 Lymphocytes % 6.3 L Monocytes % 10.5 Eosinophils % 6.7 H Basophils % 1.2 Absolute Neutrophils 6.1 Absolute Lymphocytes 0.5 Absolute Monocytes 0.9 Absolute Eosinophils 0.5 Absolute Basophils 0.1 06/18/17 06/18/17 06/18/17 01:22 01:22 06:40 Creatine Kinase 85 73 CK-MB (CK-2) 2.27 Troponin I 0.067 06/18/17 06/18/17 06/18/17 06:40 11:59 11:59 Creatine Kinase 73 CK-MB (CK-2) 1.97 2.20 Troponin I 0.073 0.074 06/19/17 06/19/17 06/20/17 04:19 10:30 07:30 Creatine Kinase CK-MB (CK-2) Troponin I 0.279 0.183 0.109 Impressions: Renal Ultrasound 06/20/17 00:00 IMPRESSION: No hydronephrosis. Chest X-Ray 07/01/17 06:00 IMPRESSION: No significant interval change. 2010 [employer]- All Rights Reserved Assessment & Plan - Diagnosis (1) Acute on chronic congestive heart failure Qualifiers: Congestive heart failure type: systolic Qualified Code(s): I50.23 - Acute on chronic systolic (congestive) heart failure Is this a current diagnosis for this admission?: Yes Plan: Continue Lasix. (2) Acute on chronic renal failure Qualifiers: Acute renal failure type: unspecified Chronic kidney disease stage: stage 3 (moderate) Qualified Code(s): N17.9 - Acute kidney failure, unspecified; N18.3 - Chronic kidney disease, stage 3 (moderate); N18.3 - Chronic kidney disease, stage 3 (moderate) Is this a current diagnosis for this admission?: Yes Plan: Stable. Patient is receiving lisinopril. (3) Anemia in chronic kidney disease Is this a current diagnosis for this admission?: No (4) Debility Is this a current diagnosis for this admission?: Yes Plan: Patient is getting up out of bed. Begin physical therapy when appropriate. Patient is planning for alf facility placement at discharge. (5) Mitral regurgitation Qualifiers: Cardiac valve disease etiology: etiology unspecified Qualified Code(s): I34.0 - Nonrheumatic mitral (valve) insufficiency Is this a current diagnosis for this admission?: Yes Plan: Stable. (6) SHABBIR (obstructive sleep apnea) Is this a current diagnosis for this admission?: Yes Plan: Continue CPAP at night. (7) Pulmonary hypertension Is this a current diagnosis for this admission?: Yes Plan: Class II. Management is for left-sided heart disease. (8) UTI (urinary tract infection) due to urinary indwelling catheter Qualifiers: Indwelling urinary catheter type: indwelling urethral catheter Is this a current diagnosis for this admission?: Yes Plan: Continue Rocephin. Remove Wise catheter. - Time Time Spent with patient: 25-34 minutes - Inpatient Certification Medical Necessity: Need Close Monitoring Due to Risk of Patient Decompensation, Need For Continuous Telemetry Monitoring, Need for IV Antibiotics
[2017-07-01] MEDS: FUROSEMIDE 80 MG TABLET PO SCH (17:04)
[2017-07-01] MEDS: METOLAZONE 2.5 MG TABLET PO SCH (17:04)
[2017-07-01] MEDS: TAMSULOSIN HCL 0.4 MG CAP.SR.24H PO SCH (18:03)
[2017-07-01] MEDS: MONTELUKAST SODIUM 10 MG TABLET PO SCH (21:37)
[2017-07-01] MEDS: GABAPENTIN 300 MG CAPSULE PO SCH (21:37)
[2017-07-01] MEDS: ATORVASTATIN CALCIUM 80 MG TABLET PO SCH (21:37)
[2017-07-01] MEDS: ACETAMINOPHEN 325 MG TABLET PO PRN (23:55)
[2017-07-02 06:17] LABS: ABSOLUTE BASOPHILS # (AUTO) 0.1 10^3/uL (0.0-0.2); ABSOLUTE EOSINOPHILS # (AUTO) 0.4 10^3/uL (0.0-0.6); ABSOLUTE LYMPHOCYTES (AUTO) 0.6 10^3/uL (0.5-4.7); ABSOLUTE MONOCYTES (AUTO) 0.9 10^3/uL (0.1-1.4); BASOPHILS % (AUTO) 1.1 % (0-2); EOSINOPHILS % (AUTO) 5.5 % (0-6); HEMATOCRIT 38.7 % (36.0-47.0); HEMOGLOBIN 12.8 g/dL (12.0-15.5); HGB HCT DIFFERENCE -0.3; LYMPHOCYTES % (AUTO) 6.9 % (13-45); MEAN CORPUSCULAR HEMOGLOBIN 33.4 pg (27.0-33.4); MEAN CORPUSCULAR HGB CONC 32.9 g/dL (32.0-36.0); MEAN CORPUSCULAR VOLUME 101 fl (80-97); MONOCYTES % (AUTO) 11.5 % (3-13); RED BLOOD COUNT 3.82 10^6/uL (3.72-5.28); RED CELL DISTRIBUTION WIDTH 15.3 % (11.5-14.0)
[2017-07-02 06:34] LABS: ALANINE AMINOTRANSFERASE 34 U/L (9-52); ALKALINE PHOSPHATASE 77 U/L (38-126); ANION GAP 12 (5-19); ASPARTATE AMINO TRANSFERASE 29 U/L (14-36); BILIRUBIN,DIRECT 0.5 mg/dL (0.0-0.4); BILIRUBIN,TOTAL 0.8 mg/dL (0.2-1.3); BLOOD UREA NITROGEN 74 mg/dL (7-20); CALCIUM 9.4 mg/dL (8.4-10.2); CARBON DIOXIDE 37 mmol/L (22-30); CHLORIDE 89 mmol/L (98-107); CREATININE RESULT 1.06 mg/dL (0.52-1.25); GLUCOSE 95 mg/dL (75-110); MAGNESIUM 1.6 mg/dL (1.6-2.3); POTASSIUM 3.8 mmol/L (3.6-5.0); SODIUM 138.3 mmol/L (137-145); TOTAL PROTEIN 6.2 g/dL (6.3-8.2)
[2017-07-02] MEDS: LEVOTHYROXINE SODIUM 0.1 MG TABLET PO SCH (06:53)
[2017-07-02] MEDS: METOCLOPRAMIDE HCL INJ/PF 10 MG/2 ML SDV IV SCH ×4 (06:53→23:20)
[2017-07-02] MEDS: LEVOTHYROXINE SODIUM 0.025 MG TABLET PO SCH (06:53)
[2017-07-02] MEDS: METOLAZONE 2.5 MG TABLET PO SCH ×2 (07:36→18:14)
[2017-07-02] MEDS: IPRATROPIUM/ALBUTEROL 0.5-2.5 MG/3 ML AMPUL NEB PRN ×2 (07:45→17:23)
[2017-07-02] MEDS: HEPARIN SOD (PORCINE) 5,000 UNIT/ML 1 ML SYRINGE SUBCUT SCH ×2 (09:39→22:18)
[2017-07-02] MEDS: CEFTRIAXONE 1 GM/D5W RTU 1 GM/50 ML RTUPB IV SCH (09:39)
[2017-07-02] MEDS: POTASSIUM CHLORIDE 20 MEQ/15 ML UDCUP PO SCH (09:40)
[2017-07-02] MEDS: DOCUSATE SODIUM 100 MG CAPSULE PO SCH (09:40)
[2017-07-02] MEDS: POLYETHYLENE GLYCOL 3350 POWDER 17 GM/1 PACKET PO SCH (09:41)
[2017-07-02] MEDS: METOPROLOL SUCCINATE 25 MG TAB.SR.24H PO SCH (09:41)
[2017-07-02] MEDS: LISINOPRIL 10 MG TABLET PO SCH ×2 (09:41→22:22)
[2017-07-02] MEDS: FUROSEMIDE 80 MG TABLET PO SCH ×2 (10:55→18:10)
[2017-07-02] MEDS: NITROGLYCERIN 10 MG (0.4 MG/HR) PATCH.TD24 TD SCH (10:56)
[2017-07-02] MEDS ORDERED: NORMAL SALINE 1000 ML 250 ML IV PRN (11:45)
[2017-07-02] MEDS ORDERED: DIGOXIN INJ 0.5 MG/2 ML AMPULE IV ONE (11:46)
--- NOTE | 2017-07-02 13:07 | PDOC PROGRESS REPORT ---
Subjective Progress Note for:: 07/02/17 Subjective:: The patient is an 82-year-old female who was admitted to the hospital with congestive heart failure. This appears to be secondary to volume overload from chronic kidney disease and mitral regurgitation in the setting of a severely reduced EF and biventricular heart failure. The patient is currently being managed by cardiology. Nephrology has followed the patient previously but recently signed off due to stability of renal function. Today, the patient told me that her breathing is about at baseline. Prior to this hospitalization the patient was living independently at home. She and her family want to attempt outpatient SNF for rehabilitation when she is more stable. Spoke to cardiology today. Dr. Bazan feels that the patient may benefit from placement of a biventricular pacemaker with AICD capability. He is going to discuss this with Dr. Christiano Wbeb at [facility] tomorrow. Reason For Visit: HEART FAILURE Physical Exam Vital Signs: Temp Pulse Resp BP Pulse Ox 97.7 F 76 20 109/55 L 100 07/02/17 11:58 07/02/17 11:58 07/02/17 11:58 07/02/17 11:58 07/02/17 11:58 Intake & Output 07/01/17 07/02/17 07/03/17 06:59 06:59 06:59 Intake Total 653 150 Output Total 2690 2600 Balance -2036 -2450 Weight 83 kg 83 kg Additional comments: Patient was sleeping when I entered the room. She woke up with verbal and tactile stimuli. She is oriented to person and place. She states that her breathing is about the same. Overall, I think the patient appears to be in poor health. She appears to be extremely frail and tenuous. According to other care providers that she is much improved when compared to previous days in the hospital. The patient's facial appearance is unremarkable. Her lungs demonstrate decreased breath sounds in the posterior lung stokes extending about a third of the way up bilaterally. Her cardiac exam is distant. I am unable to hear any murmurs, rubs or gallops. The rate appears to be regular. The patient's abdomen is obese but soft. Bowel sounds are present in the lower quadrants. She does not have guarding or rebound noted and there are no hernias or masses. In general, the patient has 2+ anasarca. The skin is otherwise warm, dry and intact without lesions or rashes. Results Laboratory Results: 07/02/17 05:30 07/02/17 05:30 07/02/17 07/02/17 05:30 05:30 WBC 8.0 RBC 3.82 Hgb 12.8 Hct 38.7 MCV 101 H MCH 33.4 MCHC 32.9 RDW 15.3 H Plt Count 251 Seg Neutrophils % 75.0 Lymphocytes % 6.9 L Monocytes % 11.5 Eosinophils % 5.5 Basophils % 1.1 Absolute Neutrophils 6.0 Absolute Lymphocytes 0.6 Absolute Monocytes 0.9 Absolute Eosinophils 0.4 Absolute Basophils 0.1 Sodium 138.3 Potassium 3.8 Chloride 89 L Carbon Dioxide 37 H Anion Gap 12 BUN 74 H Creatinine 1.06 Est GFR ( Amer) > 60 Est GFR (Non-Af Amer) 50 L Glucose 95 Calcium 9.4 Magnesium 1.6 Total Bilirubin 0.8 AST 29 ALT 34 Alkaline Phosphatase 77 Total Protein 6.2 L Albumin 3.0 L 06/18/17 06/18/17 06/18/17 01:22 01:22 06:40 Creatine Kinase 85 73 CK-MB (CK-2) 2.27 Troponin I 0.067 06/18/17 06/18/17 06/18/17 06:40 11:59 11:59 Creatine Kinase 73 CK-MB (CK-2) 1.97 2.20 Troponin I 0.073 0.074 06/19/17 06/19/17 06/20/17 04:19 10:30 07:30 Creatine Kinase CK-MB (CK-2) Troponin I 0.279 0.183 0.109 Impressions: Renal Ultrasound 06/20/17 00:00 IMPRESSION: No hydronephrosis. Chest X-Ray 07/01/17 06:00 IMPRESSION: No significant interval change. 2010 [employer]- All Rights Reserved Assessment & Plan - Diagnosis (1) Acute on chronic congestive heart failure Qualifiers: Congestive heart failure type: systolic Qualified Code(s): I50.23 - Acute on chronic systolic (congestive) heart failure Is this a current diagnosis for this admission?: Yes Plan: Continue Lasix. Dr. Bazan has added digoxin today. (2) Acute on chronic renal failure Qualifiers: Acute renal failure type: unspecified Chronic kidney disease stage: stage 3 (moderate) Qualified Code(s): N17.9 - Acute kidney failure, unspecified; N18.3 - Chronic kidney disease, stage 3 (moderate); N18.3 - Chronic kidney disease, stage 3 (moderate) Is this a current diagnosis for this admission?: Yes Plan: Stable. Patient is receiving lisinopril -due to stability of renal function and potassium this will be continued at present. (3) Anemia in chronic kidney disease Is this a current diagnosis for this admission?: No Plan: Stable. (4) Debility Is this a current diagnosis for this admission?: Yes Plan: Patient is getting up out of bed. Begin physical therapy when appropriate. Patient is planning for retirement facility placement at discharge. (5) Mitral regurgitation Qualifiers: Cardiac valve disease etiology: etiology unspecified Qualified Code(s): I34.0 - Nonrheumatic mitral (valve) insufficiency Is this a current diagnosis for this admission?: Yes Plan: Stable. -Oral, CHF is improved. This is being managed by cardiology. (6) SHABBIR (obstructive sleep apnea) Is this a current diagnosis for this admission?: Yes Plan: Continue CPAP at night. Unfortunately, the nurses report the patient frequently takes this off at night. She is likely unaware of removing this at night. (7) Pulmonary hypertension Is this a current diagnosis for this admission?: Yes Plan: Class II. Management is for left-sided heart disease. (8) UTI (urinary tract infection) due to urinary indwelling catheter Qualifiers: Indwelling urinary catheter type: indwelling urethral catheter Is this a current diagnosis for this admission?: Yes Plan: Continue Rocephin. Today is day #5 which should be the last day. Remove Wise catheter. - Time Time Spent with patient: 25-34 minutes - Inpatient Certification Medical Necessity: Significant Comorbidiites Make Outpatient Treatment Too Risky , Risk of Complication if Not Cared For in Hospital
[2017-07-02] MEDS ORDERED: NORMAL SALINE 1000 ML 250 ML IV ONE (13:30)
[2017-07-02] MEDS: NORMAL SALINE INJ/PF 0.9% 10 ML SDV IV PRN ×2 (13:33→23:20)
[2017-07-02] MEDS: MAGNESIUM SULFATE/D5W 1 GM/100 ML RTUPB IV SCH ×2 (13:33→15:30)
--- NOTE | 2017-07-02 15:04 | PROGRESS NOTE E ---
Progress Note NAME: RANDELL STERLING : 1935 AGE: 82Y DATE: 07/01/2017 ROOM: 528 SUBJECTIVE: The patient denies any chest pain or discomfort. Her shortness of breath at rest is much better. She has no pedal edema. There is no recurrence of atrial fibrillation. She has chronic orthopnea. There are no TIA or CVA symptoms. OBJECTIVE: GENERAL: On examination the patient is moderately obese, in no acute distress. VITAL SIGNS: Her temperature last was 99 degrees Fahrenheit, pulse is 84 beats per minute regular, blood pressure is 108/64, respirations are 20 per minute, O2 saturations are 100% on 2L nasal cannula. HEENT: Head is atraumatic, normocephalic. Eyes: Pupils are equal, round and regular, reactive to light and accommodation. Extraocular movements are normal. There is no conjunctival pallor. There is no scleral icterus. ENT is negative. NECK: Supple. There is no JVD. There is no lymphadenopathy. Carotids are equal. There is no bruit. Trachea is central. LUNGS: Clear to auscultation and percussion. HEART: S1 and S2 is heard. There is no S3 gallop. There is no S4 gallop. There is a systolic murmur of mitral regurgitation and tricuspid regurgitation present. There is no rub. ABDOMEN: Soft, obese, nontender. There is no hepatosplenomegaly. Bowel sounds are well heard. There are no tender areas or masses. EXTREMITIES: Femorals are diminished. There are no femoral bruits. Leg pulses are diminished. There is no pedal edema. There is no cyanosis or clubbing. There is no DVT or cellulitis. CENTRAL NERVOUS SYSTEM: The patient is conscious, awake, alert and oriented x3 with no focal deficits. PSYCHIATRIC: The patient's judgment and insight are intact. Her affect is normal. INTAKE/OUTPUT: The patient's intake is 653 mL, output is 2690 mL. LABORATORY DATA: The white count is 8200, hemoglobin is 12.6, hematocrit is 37.9, and platelet count is 236,000. compensated at present. 2. ACUTE ON CHRONIC RENAL FAILURE. Renal function is slightly improved at present. Yesterday it was 41 mL. 3. HYPERTENSION. Blood pressure is stable and well-controlled. 4. ELEVATED TROPONIN I, WHICH HAS TRENDED DOWN. NO EVIDENCE OF NON-ST ELEVATION ID. NO PRIOR HISTORY OF CORONARY ARTERY DISEASE. NO ANGINAL SYMPTOMS. HISTORY OF STENT IN THE LEFT CIRCUMFLEX. 5. DIET CONTROLLED DIABETES MELLITUS. 6. HYPOTHYROIDISM. 13. CARDIOMYOPATHY WITH SEVERELY REDUCED LV EJECTION FRACTION. RECOMMENDATION: Continue current medications including beta ilan and STACY inhibitor. We will stop the patient's IV Lasix and change it to Lasix 80 mg p.o. b.i.d. and increase the to 2.5 mg p.o. b.i.d. We will transfer the patient out to the telemetry floor. We will recheck the patient's SMA-7 in the morning. All of the above discussed with the patient. We will follow with you. DICTATING PHYSICIAN: CORRY PIMENTEL M.D. [id number] PHY#: [id number] ID: [id number] JOB#: [id number] ACCT: [id number] cc: >
[2017-07-02] MEDS: TAMSULOSIN HCL 0.4 MG CAP.SR.24H PO SCH (18:10)
[2017-07-02] MEDS: GABAPENTIN 300 MG CAPSULE PO SCH (22:18)
[2017-07-02] MEDS: MONTELUKAST SODIUM 10 MG TABLET PO SCH (22:20)
[2017-07-02] MEDS: ATORVASTATIN CALCIUM 80 MG TABLET PO SCH (22:20)
--- NOTE | 2017-07-02 23:19 | PROGRESS NOTE E ---
Progress Note NAME: RANDELL STERLING : 1935 AGE: 82Y DATE: 07/02/2017 ROOM: 528 SUBJECTIVE: The patient was seen early in this morning where she states that last night she had some shortness of breath and orthopnea. She had some wheezing also. With breathing treatments and with BiPAP, she is better. At present she has no shortness of breath. There is no PND or leg edema, and she has no chest pain. She denies any TIA or CVA symptoms. She has chronic orthopnea. OBJECTIVE: GENERAL: On examination, the patient is moderately obese, in no acute distress at present. She is on room air without any respiratory distress. VITAL SIGNS: She is afebrile with a temperature of 97.5 degrees Fahrenheit, pulse is 69 beats per minute, blood pressure is 103/57, respirations are 20 per minute, O2 sats are 99% on room air. HEAD: Atraumatic, normocephalic. EYES: Pupils are equal, round, regular, reactive to light and accommodation. Extraocular movements are normal. There is no conjunctival pallor. There is no scleral icterus. ENT: Negative. NECK: Supple. There is no JVD. There is no lymphedema. Carotids are equal. There is no bruit. Trachea is central. LUNGS: Clear to auscultation and percussion. HEART: S1, S2 is heard. There is no S3 gallop. There is no S4 gallop. There is systolic murmur of mitral regurgitation and tricuspid regurgitation present. There is no rub. ABDOMEN: Soft,obese, nontender. There is no hepatosplenomegaly. Bowel sounds are well heard. There are no tender areas or masses. EXTREMITIES: Femorals are diminished. There are no femoral bruits. Leg pulses are diminished. There is no pedal edema. There is no DVT or cellulitis. There is cyanosis or clubbing. 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 PSYCHIATRIC: The patient's judgement and insight are intact. Her affect is normal. The patient's 24-hour intake is 150 mL, output is 2600 mL. LABORATORY DATA: White count is 8,000, hemoglobin is 12.8, hematocrit is 38.7, platelet count is 251,000. Sodium is 138.3, potassium 3.8, chloride 89, CO2 37, BUN 74, creatinine 1.06, GFR is 50 mL/h which is improved. Glucose is 208. Liver function tests are normal except for a direct bilirubin being slightly high at 0.5. Albumin is 3.0, and a total protein is 6.2. IMPRESSION: 1. Congestive heart failure on chronic systolic heart failure. At present, compensated. 2. Acute on chronic renal failure. Renal function is stable at 50 mL/h. 3. Hypertension. Blood pressure well controlled. 4. Elevated troponin I which has trended down. 5. History of coronary artery disease. No anginal symptoms. History of stent in the left circumflex. 6. Diet controlled diabetes mellitus. 7. Left bundle branch block pattern. 8. Hyperthyroidism. 9. Cardiomyopathy with severely reduced LV ejection fraction. 10. Severe pulmonary hypertension. RECOMMENDATIONS: 1. Continue current medications. 2. Continue Lasix at 80 mg p.o. b.i.d. 3. Continue the patient's beta ilan and STACY inhibitor. 4. Continue the patient's metolazone at 2.5 mg p.o. b.i.d. 5. Continue her other current medications. 6. We will discuss with Dr. Don, her nailer operator, to see if the patient needs to be transferred to [facility] for a possibility of a biventricular AICD for cardiac resynchronization therapy prior to sending her to rehab since the patient might decompensate in rehab. We will discuss this with Dr. Don. This has been discussed with the patient. TIME SPENT: Note that 30 minutes was spent on this patient with more than 50% of the time spent on direct patient care. Medications have been reviewed. Medical decision making is still highly complex in nature since the possibility of needing an AICD has to be discussed with her attending nailer operator in [facility], and weighing the decision of sending the patient to rehabilitation first and then have the pacemaker, or have the pacemaker and then send her to the rehab. Discussed with other caregiving providers on the case. DICTATING PHYSICIAN: CORRY PIMENTEL M.D. [id number] PHY#: [id number] ID: [id number] JOB#: [id number] ACCT: [id number] cc: >
[2017-07-03] MEDS: IPRATROPIUM/ALBUTEROL 0.5-2.5 MG/3 ML AMPUL NEB PRN (01:26)
[2017-07-03] MEDS: ACETAMINOPHEN 325 MG TABLET PO PRN (01:50)
[2017-07-03] MEDS: LEVOTHYROXINE SODIUM 0.1 MG TABLET PO SCH (05:45)
[2017-07-03] MEDS: METOCLOPRAMIDE HCL INJ/PF 10 MG/2 ML SDV IV SCH (05:45)
[2017-07-03] MEDS: NORMAL SALINE INJ/PF 0.9% 10 ML SDV IV PRN ×2 (05:45→15:00)
[2017-07-03] MEDS: LEVOTHYROXINE SODIUM 0.025 MG TABLET PO SCH (05:45)
[2017-07-03] MEDS: METOLAZONE 2.5 MG TABLET PO SCH ×2 (05:46→18:51)
[2017-07-03] MEDS ORDERED: MAGNESIUM OXIDE 400 MG TABLET PO SCH (10:00)
[2017-07-03] MEDS: DOCUSATE SODIUM 100 MG CAPSULE PO SCH (10:05)
[2017-07-03] MEDS: HEPARIN SOD (PORCINE) 5,000 UNIT/ML 1 ML SYRINGE SUBCUT SCH (10:05)
[2017-07-03] MEDS: POTASSIUM CHLORIDE 20 MEQ/15 ML UDCUP PO SCH (10:05)
[2017-07-03] MEDS: CEFTRIAXONE 1 GM/D5W RTU 1 GM/50 ML RTUPB IV SCH (10:05)
[2017-07-03] MEDS: FUROSEMIDE 80 MG TABLET PO SCH ×2 (10:05→18:52)
[2017-07-03] MEDS ORDERED: PHARMACY COMMUNICATION ORDER MC SCH (11:00)
[2017-07-03] MEDS ORDERED: IPRATROPIUM/ALBUTEROL 0.5-2.5 MG/3 ML AMPUL NEB PRN (11:00)
[2017-07-03] MEDS: POLYETHYLENE GLYCOL 3350 POWDER 17 GM/1 PACKET PO SCH (11:31)
[2017-07-03] MEDS: METOPROLOL SUCCINATE 25 MG TAB.SR.24H PO SCH (11:31)
[2017-07-03] MEDS: LISINOPRIL 10 MG TABLET PO SCH (11:31)
[2017-07-03 12:41] LABS: BLOOD UREA NITROGEN 71 mg/dL (7-20); CALCIUM 9.3 mg/dL (8.4-10.2); CHLORIDE 87 mmol/L (98-107); CREATININE RESULT 1.05 mg/dL (0.52-1.25); GLUCOSE 206 mg/dL (75-110); POTASSIUM 4.5 mmol/L (3.6-5.0); SODIUM 137.1 mmol/L (137-145)
[2017-07-03 12:49] LABS: ANION GAP 11 (5-19); CARBON DIOXIDE 39 mmol/L (22-30)
[2017-07-03] MEDS: NITROGLYCERIN 10 MG (0.4 MG/HR) PATCH.TD24 TD SCH (14:59)
--- NOTE | 2017-07-03 15:14 | PDOC TRANSFER SUMMARY ---
General Admission Date/PCP: 06/18/17 01:14 BENJAMIN BERTRAND MD Resuscitation Status: Do Not Resuscitate - Transfer Diagnosis (1) Acute on chronic congestive heart failure Is this a current diagnosis for this admission?: Yes (2) Acute on chronic renal failure Is this a current diagnosis for this admission?: Yes (3) Anemia in chronic kidney disease Is this a current diagnosis for this admission?: No (4) Debility Is this a current diagnosis for this admission?: Yes (5) Mitral regurgitation Is this a current diagnosis for this admission?: Yes (6) SHABBIR (obstructive sleep apnea) Is this a current diagnosis for this admission?: Yes (7) Pulmonary hypertension Is this a current diagnosis for this admission?: Yes (8) UTI (urinary tract infection) due to urinary indwelling catheter Is this a current diagnosis for this admission?: Yes - Transfer Medications Home Medications: Allopurinol [Zyloprim 100 mg Tablet] 200 mg PO DAILY 06/18/17 Betamethasone Valerate [Valisone 0.1 % Lotion] 1 applic TP DAILY 06/18/17 Bromfenac Sodium [Bromsite] 1 drop OU DAILY 06/18/17 Difluprednate [Durezol] 1 drop OU Q8 06/18/17 Furosemide [Lasix 40 mg Tablet] 40 mg PO QAM 06/18/17 Gabapentin [Neurontin 300 mg Capsule] 300 mg PO QHS 06/18/17 Glipizide [Glipizide ER] 2.5 mg PO DAILY 06/18/17 Levalbuterol HCl [Xopenex Neb 1.25 mg/3 ml Ampul] 1.25 mg NEB RTQ6HP PRN Levalbuterol Tartrate [Xopenex Hfa] 1 puff IH Q6HP PRN 06/18/17 Levothyroxine Sodium [Synthroid] 125 mcg PO DAILY 06/18/17 Magnesium Oxide [Mag-Ox 400 mg Tablet] 400 mg PO DAILY 06/18/17 Metolazone [Zaroxolyn 2.5 Mg Tablet] 2.5 mg PO MOWEFR@08 PRN 06/18/17 Metoprolol Succinate [Toprol Xl 25 mg Tab.sr] 25 mg PO DAILY 06/18/17 Montelukast Sodium [Singulair 10 mg Tablet] 10 mg PO QHS 06/18/17 Potassium Chloride [Klor-Con 10 Meq Tablet.sa] 10 meq PO DAILY 06/18/17 Transfer Medications: Current Medications Acetaminophen (Tylenol 325 Mg Tablet) 650 mg PO Q4HP PRN PRN Reason: pain or temp greater than 101F Stop: 07/18/17 00:55 Last Admin: 07/03/17 01:50 Dose: 650 mg Albuterol/Ipratropium (Duoneb 3 Ml Ampul) 3 ml NEB RTQ6HP PRN PRN Reason: WHEEZING/DYSPNEA Stop: 07/27/17 03:40 Last Admin: 07/03/17 14:17 Dose: 3 ml Atorvastatin Calcium (Lipitor 80 Mg Tablet) 80 mg PO QHS [facility] Stop: 07/20/17 21:59 Last Admin: 07/02/17 22:20 Dose: 80 mg Dextrose (Dextrose Inj 50% Syringe (25 Gm/50 Ml)) 12.5 gm IV PRN PRN; Protocol PRN Reason: FOR BG 50-69 IN ALERT PATIENT Stop: 07/18/17 00:55 Dextrose (Dextrose Inj 50% Syringe (25 Gm/50 Ml)) 25 gm IV PRN PRN PRN Reason: Protocol Stop: 07/18/17 00:55 Docusate Sodium (Colace 100 Mg Capsule) 100 mg PO DAILY [facility] Stop: 07/18/17 09:59 Last Admin: 07/03/17 10:05 Dose: 100 mg Furosemide (Lasix 80 Mg Tablet) 80 mg PO BID [facility] Stop: 07/31/17 17:59 Last Admin: 07/03/17 10:05 Dose: 80 mg Gabapentin (Neurontin 300 Mg Capsule) 300 mg PO QHS [facility] Stop: 07/21/17 21:59 Last Admin: 07/02/17 22:18 Dose: 300 mg Glucagon (Glucagen Inj 1 Mg Vial) 1 mg IM PRN PRN; Protocol PRN Reason: Evaluate for BG < 70 Stop: 07/18/17 00:55 Glucose (Glutose 40% Gel 15 Gm Tube) 15 gm PO PRN PRN; Protocol PRN Reason: FOR BG 50-69 IN ALERT PATIENT Stop: 07/18/17 00:55 Glucose (Glutose 40% Gel 15 Gm Tube) 30 gm PO PRN PRN; Protocol PRN Reason: FOR BG < 50 IN ALERT PATIENT Stop: 07/18/17 00:55 Heparin Sodium (Porcine) (Heparin Flush 10 Unit/Ml 5 Ml Disp.Syrg) 30 unit IV Q8 [facility] Stop: 07/21/17 21:59 Last Admin: 07/03/17 15:00 Dose: 30 unit Heparin Sodium (Porcine) (Heparin Flush 10 Unit/Ml 5 Ml Disp.Syrg) 30 unit IV .AFTER EACH USE PRN PRN Reason: AFTER EACH INTERMITTENT USE Stop: 07/21/17 19:13 Last Admin: 07/02/17 23:20 Dose: 30 unit Heparin Sodium (Porcine) (Heparin Inj 5,000 Units/Ml 1 Ml Syringe) 5,000 unit SUBCUT Q12 [facility] Stop: 07/25/17 09:59 Last Admin: 07/03/17 10:05 Dose: 5,000 unit Ceftriaxone Sodium/Dextrose (Rocephin Rtu 1 Gm/D5w 50 Ml Premix) 1 gm in 50 mls @ 100 mls/hr IV DAILY [facility] Stop: 07/05/17 09:59 Last Admin: 07/03/17 10:05 Dose: 50 ml Insulin Human Lispro (Humalog Insulin 100 Unit/1 Ml 3 Ml Vial) 0 - 12 unit SUBCUT ACP PRN PRN Reason: Protocol Stop: 07/18/17 00:55 Last Admin: 07/02/17 13:02 Dose: 4 unit Levothyroxine Sodium (Synthroid 0.025 Mg Tablet) 0.025 mg PO Q6AM [facility] Stop: 07/27/17 05:59 Last Admin: 07/03/17 05:45 Dose: 0.025 mg Levothyroxine Sodium (Synthroid 0.1 Mg Tablet) 0.1 mg PO Q6AM [facility] Stop: 07/27/17 05:59 Last Admin: 07/03/17 05:45 Dose: 0.1 mg Lisinopril (Prinivil 10 Mg Tablet) 10 mg PO Q12 [facility] Stop: 07/26/17 21:59 Last Admin: 07/03/17 11:31 Dose: Not Given Magnesium Hydroxide (Milk Of Magnesia 30 Ml Udcup) 30 ml PO HSP PRN PRN Reason: constipation Stop: 07/18/17 00:55 Last Admin: 06/25/17 09:21 Dose: 30 ml Magnesium Oxide (Mag-Ox 400 Mg Tablet) 400 mg PO DAILY [facility] Stop: 08/02/17 09:59 Last Admin: 07/03/17 10:05 Dose: 400 mg Metolazone (Zaroxolyn 2.5 Mg Tablet) 2.5 mg PO Q12A [facility] Stop: 07/31/17 17:59 Last Admin: 07/03/17 05:46 Dose: Not Given Metoprolol Succinate (Toprol Xl 25 Mg Tab.Sr) 25 mg PO DAILY [facility] Stop: 07/22/17 09:59 Last Admin: 07/03/17 11:31 Dose: Not Given Montelukast Sodium (Singulair 10 Mg Tablet) 10 mg PO QHS [facility] Stop: 07/21/17 21:59 Last Admin: 07/02/17 22:20 Dose: 10 mg Nitroglycerin (Nitro-Dur 10 Mg (0.4mg/Hr) Transdermal Patch) 1 each TD DAILY@ 1100 [facility] Stop: 07/24/17 10:59 Last Admin: 07/03/17 14:59 Dose: 1 each Ondansetron HCl (Zofran Inj/Pf 4 Mg/2 Ml Sdv) 4 mg IV Q6HP PRN PRN Reason: FOR NAUSEA/VOMITING Stop: 07/18/17 11:34 Last Admin: 06/25/17 10:20 Dose: 4 mg Pharmacy Profile Note (Medication Communication Order) 1 each MC .DAILY@2100 [facility] Stop: 08/02/17 10:59 Polyethylene Glycol (Miralax Powder 17 Gm/Packet) 17 gm PO DAILY [facility] Stop: 07/23/17 09:59 Last Admin: 07/03/17 11:31 Dose: Not Given Potassium Chloride (Kaon-Cl 20 Meq/15 Ml Udcup) 20 meq PO DAILY [facility] Stop: 07/25/17 09:59 Last Admin: 07/03/17 10:05 Dose: 20 meq Sodium Chloride (Saline Flush 2.5 Ml Monoject Prefil Syrin) 2.5 ml IV Q8 [facility] Stop: 07/18/17 05:59 Last Admin: 07/03/17 05:46 Dose: Not Given Sodium Chloride (Nacl 0.9% Inj/Pf 10 Ml Sdv) 10 ml IV .AFTER EACH USE PRN PRN Reason: AFTER EACH INTERMITTENT USE Stop: 07/21/17 19:13 Last Admin: 07/03/17 15:00 Dose: 10 ml Sorbitol (Sorbitol 70% Soln 30 Ml Udcup) 30 ml PO TIDP PRN Stop: 07/25/17 08:03 Last Admin: 06/26/17 11:40 Dose: 30 ml Tamsulosin HCl (Flomax 0.4 Mg Cap.Sr) 0.4 mg PO PCSUPPER [facility] Stop: 07/29/17 17:59 Last Admin: 07/02/17 18:10 Dose: 0.4 mg - Allergies Allergies/Adverse Reactions: pentazocine lactate [From Talwin] Allergy (Severe, Verified 06/18/17 10:20) Anaphylaxis codeine [Codeine] Allergy (Verified 06/18/17 10:20) Confusion meperidine HCl [From Demerol] Allergy (Verified 06/18/17 10:20) Disorientation morphine [Morphine] Allergy (Verified 06/18/17 10:20) Confusion Sulfa (Sulfonamide Antibiotics) Allergy (Verified 06/18/17 10:22) Flushing - Diet/Activity Discharge Diet: Cardiac, Diabetic Hospital Course Hospital Course: The patient is an 82-year-old female with multiple, severe comorbid medical conditions. Patient has severe cardiomyopathy with ejection fraction of less than 20%. She has severe mitral regurgitation. She has class II pulmonary hypertension with an RV pressure estimated at 75. The patient also has stage IV chronic kidney disease, diabetes, hypothyroidism, obstructive sleep apnea and morbid obesity. The patient was admitted on 06/18/2017 with acute on chronic systolic congestive heart failure exacerbation. The patient was placed in the intensive care unit. She was placed on a Lasix drip. In addition, the patient required intravenous Levophed. The patient's drips were managed by cardiology and nephrology. Eventually, the patient's creatinine improved back to baseline. She is now receiving oral Lasix. Her other cardiology medications include metoprolol. She is also receiving lisinopril. Yesterday, the patient was given an intravenous dose of digoxin. Due to the patient's poor prognosis a conversation regarding the possibility of hospice was held last week with the patient and her family. At this point time the patient and family wish for additional measures. Our finisher polisher Dr. Bazan spoke to Dr. Saritha Webb and Dr. Cyndy Ennis today. They feel that the patient could benefit from a biventricular pacemaker with AICD capability. Therefore, I have been asked to transfer the patient to [facility] to their hospitalist service where she can undergo these procedures. The patient' s hospital course has also been complicated by an E. coli urinary tract infection. The patient received 5 days of ceftriaxone intravenously which concluded today. Physical Exam Vital Signs: Temp Pulse Resp BP Pulse Ox 97.6 F 77 16 111/89 H 98 07/03/17 12:00 07/03/17 14:17 07/03/17 14:17 07/03/17 12:00 07/03/17 14:17 Intake & Output 07/02/17 07/03/17 07/04/17 06:59 06:59 06:59 Intake Total 150 1220 Output Total 2600 480 Balance -2450 740 Weight 83 kg 83 kg Additional comments: The patient is an obese white female. She does appear to be quite debilitated. She is extremely weak. Her facial appearance is unremarkable. Her oropharynx demonstrates moist mucous membranes. Her lung sounds are somewhat diminished in the posterior bases only. Otherwise, she does not have any rales or adventitious sounds noted. The cardiac exam is distant. The rhythm is regular. I did not appreciate an S3 gallop or murmur today. Patient's abdomen is obese but soft. Bowel sounds are present in the lower quadrants. The patient's lower extremities demonstrate trace to 1+ pedal edema which is symmetrical bilaterally. The skin is warm, dry and intact without lesions or rashes. Results Laboratory Results: 07/02/17 05:30 07/03/17 11:55 07/03/17 11:55 Sodium 137.1 Potassium 4.5 Chloride 87 L Carbon Dioxide 39 H Anion Gap 11 BUN 71 H Creatinine 1.05 Est GFR ( Amer) > 60 Est GFR (Non-Af Amer) 50 L Glucose 206 H Calcium 9.3 06/18/17 06/18/17 06/18/17 01:22 01:22 06:40 Creatine Kinase 85 73 CK-MB (CK-2) 2.27 Troponin I 0.067 06/18/17 06/18/17 06/18/17 06:40 11:59 11:59 Creatine Kinase 73 CK-MB (CK-2) 1.97 2.20 Troponin I 0.073 0.074 06/19/17 06/19/17 06/20/17 04:19 10:30 07:30 Creatine Kinase CK-MB (CK-2) Troponin I 0.279 0.183 0.109 Impressions: Renal Ultrasound 06/20/17 00:00 IMPRESSION: No hydronephrosis. Chest X-Ray 07/01/17 06:00 IMPRESSION: No significant interval change. 2010 [employer]- All Rights Reserved Plan Discharge Plan: The patient has been accepted by Dr. Marga Joshua at [facility]. She will be transferred when a bed is available. The patient and family are in agreement with this plan. Time Spent: Greater than 30 Minutes
[2017-07-03 16:33] VITALS: BP 116/61
[2017-07-03] MEDS: TAMSULOSIN HCL 0.4 MG CAP.SR.24H PO SCH (18:52)
--- NOTE | 2017-07-03 22:54 | PROGRESS NOTE E ---
Progress Note NAME: RANDELL STERLING : 1935 AGE: 82Y DATE: 07/03/2017 ROOM: 528 SUBJECTIVE: The patient denies any chest pain or discomfort. She still has chronic orthopnea but that is getting better. There is no arrhythmia seen. There is no recurrence of atrial fibrillation. There is no leg edema. There is no PND. There is no TIA or CVA symptoms. OBJECTIVE: GENERAL: On examination, the patient is moderately obese, in no acute distress. VITAL SIGNS: She is afebrile with a temperature of 97.6 degrees Fahrenheit, pulse is 75 beats per minute, blood pressure 111/89, respirations are 20 per minute, O2 saturations are 99% on 2 L nasal cannula. HEAD: Atraumatic, normocephalic. EYES: Pupils are equal, round, regular, and reactive to light and accommodation. Extraocular movements are normal. There is no conjunctival pallor. There is no scleral icterus. EARS, NOSE, THROAT: Negative. NECK: Supple. There is no JVD. There is no lymphadenopathy. Carotids are equal. There is no bruit. Trachea central. LUNGS: Show a few dry crackles but otherwise, there is no rhonchi or wheezing. HEART: S1 and S2 are heard. There is no S3 gallop. There is no S4 gallop. There is a systolic murmur in the left sternal border on the apex. There is murmur of tricuspid regurgitation, mitral regurgitation present but they are of lesser intensity today. There is no rub. There are no gallops. ABDOMEN: Soft, obese, nontender. There is no hepatosplenomegaly. Bowel sounds are well heard. There are no tender areas or masses. EXTREMITIES: Femorals are deep. Femorals are diminished. There is no pedal edema. Leg pulses are diminished. There is no DVT or cellulitis. There is no cyanosis or clubbing. There is no calf tenderness. CENTRAL NERVOUS SYSTEM: The patient is conscious, awake, alert, oriented x3 with no focal deficit. PSYCHIATRIC: The patient's judgment and insight are intact. Her affect is normal. INTAKE AND OUTPUT: Note that the patient has been having urinary retention and she is being straight catheterized every 6 hours but I told them to put a Wise catheter in and 1500 mL came out. The patient's 24-hour intake was 1220 mL. Output was 480 but after the straight catheterization, the patient did have good urine output. LABORATORY DATA: Sodium 137.1, potassium 4.5, chloride 87, CO2 39. BUN is 71, creatinine 1.05, GFR is reduced at 50 mL and has remained stable at chronic kidney disease stage IIIA. Glucose 286, calcium 9.3. IMPRESSION: 1. Congestive heart failure, acute on chronic systolic heart failure, at present much improved and compensated. 2. Acute on chronic renal failure. The patient's GFR is stable at 50 mL. The patient's initial GFR was 21 mL. 3. Hypertension, well controlled. 4. Elevated troponin I which has trended down. No evidence of non-ST elevation VT. 5. History of coronary artery disease. No anginal symptoms. History of stent in the left circumflex. 6. Diet-controlled diabetes mellitus. Blood sugar slightly up. 7. Left bundle branch block pattern. 8. Hypothyroidism on replacement. 9. Cardiomyopathy with severely reduced LV ejection fraction. 10. Severe pulmonary hypertension. 11. [id number] mitral regurgitation. 12. Severe tricuspid regurgitation. RECOMMENDATION: The patient appears to be stable. Would strongly recommend that the patient be transferred to [facility] for consideration of a biventricular AICD for cardiac resynchronization therapy. I have spoken to Dr. Don, the patient's cement truck driver, who after discussions with Dr. Cyndy Ennis, EP [facility], has accepted the patient and Dr. Don called me back. We will transfer the patient to the [facility] hospitalist service and they will consult Dr. Cyndy Ennis. This has been discussed with the patient and the patient's [id number] who is the surrogate healthcare decision maker. Also, I have discussed this with the hospitalist taking care of the patient and arrangements have been made. The patient will be transferred via *------* Ambulance to [facility]. We will sign off. Thank you for allowing me to participate in the care of this kristen patient. DICTATING PHYSICIAN: CORRY PIMENTEL M.D. [id number] PHY#: [id number] ID: [id number] JOB#: [id number] ACCT: [id number] cc: >
== END 2017-07-03 20:25 | disposition short-term general hospital (02) | DRG 291 ==
LOC: ER 19:39 → EH 06-18 01:14 → 4W 06-18 09:13 → ICU 06-21 12:02 → 5 07-01 17:59
PROVIDERS: ADMIT Internal Medicine; ATTEND Internal Medicine
PROC: 05HN33Z Insertion of Infusion Device into Left Internal Jugular Vein, Percutaneous Approach (ICD-10-PCS; principal; 2017-06-21)
PROC: B544ZZA Ultrasonography of Left Jugular Veins, Guidance (ICD-10-PCS; 2017-06-21)
DX: I13.0 Hypertensive heart and chronic kidney disease with heart failure and stage 1 through stage 4 chronic kidney disease, or unspecified chronic kidney disease (principal); I50.23 Acute on chronic systolic (congestive) heart failure; N18.4 Chronic kidney disease, stage 4 (severe); N17.9 Acute kidney failure, unspecified; E11.22 Type 2 diabetes mellitus with diabetic chronic kidney disease; G47.33 Obstructive sleep apnea (adult) (pediatric); B37.2 Candidiasis of skin and nail; I25.10 Atherosclerotic heart disease of native coronary artery without angina pectoris; E03.9 Hypothyroidism, unspecified; I42.9 Cardiomyopathy, unspecified; I27.20 Pulmonary hypertension, unspecified; E66.01 Morbid (severe) obesity due to excess calories; Z68.34 Body mass index [BMI] 34.0-34.9, adult; Z79.899 Other long term (current) drug therapy; Z95.5 Presence of coronary angioplasty implant and graft; Z88.8 Allergy status to other drugs, medicaments and biological substances; Z88.5 Allergy status to narcotic agent
CPT/HCPCS: 36415; 71010; 71020; 76770; 80048; 80053; 80162; 81001; 82550; 82553; 82962; 83690; 83735; 83880; 84443; 84484; 85025; 85027; 87070; 87086; 87088; 87186; 87205; 93005; 93010; 93306; 94640; 96374; 99285; C1751; G8978-GP; G8979-GP; J0610; J0696; J1160; J1642; J1644; J1815; J1940; J2405; J2765; J3475; J3490; J7030; J7050; J7060; J7620